=== PATIENT | male | born 1945 | race Caucasian/White ===

== ENCOUNTER 2016-12-31 11:52 | Emergency (ER) | payer OTHER, MEDICARE ==
[~2016-12-31] VITALS: Ht 180.3 cm; Wt 129.3 kg
[2016-12-31 12:38] LABS: ABSOLUTE BASOPHIL COUNT 0.1 /CUMM (0.0-0.2); ABSOLUTE EOSINOPHIL COUNT 0.3 /CUMM (0.0-0.7); ABSOLUTE GRANULOCYTE CT 11.1 /CUMM (1.4-6.5); ABSOLUTE LYMPH COUNT 1.9 /CUMM (1.2-3.4); BASOPHIL % 0.4 % (0.0-2.0); EOSINOPHIL % 1.8 % (0-5); GRANULOCYTE % 77.5 % (42.2-75.2); HEMATOCRIT 30.6 % (42-52); MEAN CORPUSCULAR HGB 29.8 PG (27.0-31.0); MEAN CORPUSCULAR HGB CONC 33.5 G/DL (33.0-37.0); MEAN CORPUSCULAR VOLUME 88.8 FL (80.0-94.0); MEAN PLATELET VOLUME 7.3 FL (7.4-10.4); PLATELET COUNT 238 /CUMM (130-400); RBC DISTRIBUTION WIDTH 15.4 % (11.5-14.5); RED BLOOD CELL CT 3.45 /CUMM (4.70-6.10); WHITE BLOOD CELL COUNT 14.3 /CUMM (4.8-10.8)
--- NOTE | 2016-12-31 13:51 | ED GI/GU/ABDOMINAL COMPLAINT ---
History of Present Illness General Chief Complaint: Abdominal Pain/Flank Pain Stated Complaint: R SIDED FLANK PAIN,PT STATES HAS HX OF HEMATURIA Source: patient, family (son) Exam Limitations: no limitations Allergies Coded Allergies: NO KNOWN ALLERGIES (05/25/11) Reconcile Medications Atenolol 25 MG TABLET 1 TAB PO DAILY HEART (Reported) Docusate Sodium (Colace) 100 MG CAPSULE 1 CAP PO BID CONSTIPATION (Reported) Ferrous Sulfate 325 MG (65 MG IRON) TABLET 1 TAB PO TID SUPPLEMENT (Reported) Glipizide 10 MG TABLET 1 TAB PO BID DM (Reported) Naproxen (Naprosyn) 500 MG TABLET 1 TAB PO BID PRN pain Ondansetron HCl 4 MG TABLET 1 TAB PO DAILY NEEDED PRN GI (Reported) Oxycodone HCl (Oxycodone HCl ER) 20 MG TAB.ER.12H 1-2 TAB PO BID PAIN ( Reported) Oxycodone HCl/Acetaminophen (Percocet 5-325 MG Tablet) 5 MG-325 MG TABLET 1 TAB PO 4 TIMES/DAY PRN PAIN (Reported) Polyethylene Glycol 3350 (Miralax) 17 GRAM POWD.PACK 1 PAC PO BID CONSTIPATION (Reported) dissolve in water Triage Note: 71 Y/O MALE C/O R FLANK PAIN RADIATING INTO RLQ X 2 DAYS; REPORTS 8 MONTH HISTORY OF HEMATURIA AND SUBSEQUENT ANEMIA. REPORTS CURRENT HEMATURIA (SINCE YESTERDAY, WITH BLOD CLOTS NOTED). REPORTS INTERMITTENT NAUSEA Triage Nurses Notes Reviewed? yes HPI: This patient is a 71-year-old male who presented to the emergency department today for evaluation of blood in the urine and right side pain. The patient reported that he has had approximately 8 weeks of intermittent hematuria for which he has been worked up for multiple times. The patient reported some slight burning with urination. He reported that 2 days ago he noticed pain in his right side which sometimes goes into his right groin. The patient denied any vomiting. He reports some intermittent nausea. The patient reported the pain gets up to an 8 out of 10, is throbbing, and has been constant since onset. The patient denied any fevers, chills, chest pain, difficulty breathing, urinary urgency or frequency, numbness or tingling in his extremities, headaches , visual changes, or any other associated symptoms. (MARIAN HARPER,ALEX) Vital Signs & Intake/Output Vital Signs & Intake/Output ED Intake and Output 01/01 0000 12/31 1200 Intake Total 1000 Output Total Balance 1000 Intake, IV 1000 Patient 285 lb Weight Past History Travel History Traveled to [place] past 21 day No Medical History Any Pertinent Medical History? 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 No (ALEX FONSECA PA-C) Review of Systems Review of Systems Constitutional: Reports: no symptoms. EENTM: Reports: no symptoms. Respiratory: Reports: no symptoms. Cardiovascular: Reports: no symptoms. GI: Reports: see HPI. Genitourinary: Reports: see HPI. Musculoskeletal: Reports: no symptoms. Skin: Reports: no symptoms. Neurological/Psychological: Reports: no symptoms. All Other Systems: Reviewed and Negative (ALEX FONSECA PA-C) Physical Exam Physical Exam Gastrointestinal: normal bowel sounds, soft, non-tender, no organomegaly, obese. Nondistended. No rebound or guarding, no peritoneal signs Comments: Well-developed well-nourished person in no acute distress HEENT: Normal EENT exam, head normocephalic, moist mucous membranes Pupils equally round and reactive to light. Neck: Supple, no lymphadenopathy Back: normal gait. no cva tenderness Cardiovascular: Regular rate and rhythm with no murmurs rubs or gallops. No carotid bruits Respiratory: No respiratory distress. Speaking in full sentences. Breath sounds clear to auscultation bilaterally with no wheezes, rales, or rhonchi Extremity: Normal and equal pulses Neuro: Alert oriented x3, cranial nerves II through XII grossly intact. Skin: No appreciable rash on exposed skin, skin is warm and dry. Psych: Mood and affect is normal Core Measures ACS in differential dx? Yes Severe Sepsis Present: No Septic Shock Present: No (ALEX FONSECA PA-C) Progress Differential Diagnosis: AAA, AMI, appendicitis, biliary colic, bowel obstruction , colon cancer, cholecystitis, diverticulitis, gastritis, hepatitis, ischemic bowel, inflamm bowel dis, pancreatitis, PUD/GERD, perforated viscous, pyelonephritis, STD, testicular torsion, ureterolithiasis, urinary retention, urethritis, UTI/pyelo Plan of Care: Orders Procedure Date/time Status CULTURE,URINE 12/31 1351 Active URINALYSIS 12/31 1200 Complete COMPREHENSIVE METABOLIC PANEL 12/31 1200 Complete CBC WITHOUT DIFFERENTIAL 12/31 1200 Complete Laboratory Tests 12/31/16 1607: Urinalysis HEAVY H, Urine Color YEL, Urine Clarity CLDY H, Urine pH 5.5, Ur Specific [place] >= 1.030, Urine Protein 100 H, Urine Ketones NEG, Urine Nitrite NEG, Urine Bilirubin NEG@ICTO, Urine Urobilinogen 0.2, Ur Leukocyte Esterase NEG, Ur Microscopic SEDIMENT EXAMINED, Urine RBC >75 H, Urine WBC 10- 15 H, Ur Epithelial Cells FEW, Urine Hemoglobin LARGE H, Urine Glucose 250 H 12/31/16 1230: Anion Gap 13, Estimated GFR 40 L, BUN/Creatinine Ratio 10.6, Glucose 251 H, Calcium 8.9, Total Bilirubin 0.4, AST 18, ALT 31, Alkaline Phosphatase 56, Total Protein 6.7, Albumin 3.8, Globulin 2.9, Albumin/Globulin Ratio 1.3, CBC w Diff NO MAN DIFF REQ, RBC 3.45 L, MCV 88.8, MCH 29.8, RDW 15.4 H, MPV 7.3 L, Gran % 77.5 H, Lymphocytes % 13.5 L, Monocytes % 6.8, Eosinophils % 1.8, Basophils % 0.4, Absolute Granulocytes 11.1 H, Absolute Lymphocytes 1.9, Absolute Monocytes 1.0 H, Absolute Eosinophils 0.3, Absolute Basophils 0.1, PUBS MCHC 33.5 Microbiology 12/31 1607 URINE ROUT: Urine Culture - RECD Diagnostic Imaging: Viewed by Me: CT Scan. Discussed w/RAD: CT Scan. Radiology Impression: PATIENT: MAMI SHETH PRESENT AGE: 71 PATIENT ACCOUNT NO: [id number] : 46 LOCATION: [facility] ORDERING PHYSICIAN: ALEX FONSECA PA-C SERVICE DATE: 12/31/16 EXAM TYPE: CAT - CT ABD & PELVIS W/O IV CONTRAS EXAMINATION: CT ABDOMEN AND PELVIS WITHOUT CONTRAST CLINICAL INFORMATION: Right lower quadrant pain. Right groin pain. Hematuria. COMPARISON: None. TECHNIQUE: Multidetector volumetric imaging was performed from the superior aspect of the liver through the pubic symphysis. Sagittal and coronal reformatted images were obtained on the technologist's workstation. No oral or intravenous contrast. DLP: 1384.65 mGy-cm. FINDINGS: LUNG BASES: Marked emphysematous changes at the lung bases. No infiltrate or pleural effusion. LIVER, GALLBLADDER, AND BILIARY TREE: Mild low attenuation of liver parenchyma due to fatty change. No focal liver lesion. No intrahepatic bile duct dilatation. Right lobe of liver measures 17.4 cm superior inferior. There are multiple calcified gallstones within the gallbladder. No gallbladder wall thickening or edema around the gallbladder. No bile duct dilatation. The extrahepatic CBD measures 7 mm. PANCREAS: Unremarkable. SPLEEN: Unremarkable. ADRENAL GLANDS: Unremarkable. KIDNEYS AND URETERS: There is mild hydronephrosis of the right kidney with dilatation of the renal pelvis, right renal calyces and proximal right ureter but the right ureter tapers to normal caliber distally in the pelvis without stone in the kidney or the ureter. Left kidney and collecting system is normal with no stone or hydronephrosis. 4.4 cm pedunculated cyst off the lower pole of the right kidney. BLADDER: No bladder stone. GASTROINTESTINAL TRACT: No acute change of the bowel. Mild diverticulosis of left colon sigmoid without diverticulitis. No bowel obstruction. No bowel wall thickening or edema. Moderate volume of stool in colon. The appendix is normal. The small bowel loops are normal. ABDOMINAL WALL: Fat-containing umbilical hernia. Defect in the wall measures 1.5 cm transverse. The herniated fat pocket measures 3.5 x 3 x 3 cm in size. LYMPH NODES: Normal. VASCULAR: Atherosclerotic vascular wall calcifications of aorta and major branch vessels of aorta. No aneurysm. PELVIC VISCERA: Unremarkable. OSSEOUS STRUCTURES: Degenerative change of the spine with multilevel disc height narrowing and endplate spurs and facet joint arthrosis. IMPRESSION: 1. Mild hydronephrosis of right kidney. No renal or ureteral calculus. 2. Cholelithiasis. 3. Diverticulosis of colon but no acute change of the bowel. Normal appendix. DICTATED BY: GABRIELA SAMPSON MD DATE/TIME DICTATED:01/15 CORPORATE SPECIALIST:YUMIKO DATE/TIME TRANSCRIBED:12/31/161526 CONFIDENTIAL, DO NOT COPY WITHOUT APPROPRIATE AUTHORIZATION. <Electronically signed in Other Vendor System> SIGNED BY: GABRIELA SAMPSON MD 12/31/16 1539 Initial ED EKG: none Comments: 12/31/2016 4:19:46 PM: I discussed the results of the laboratory studies and imaging with the patient and with his son. We will obtain an ultrasound of the right kidney and gallbladder should rule out any cholecystitis or missed ureterolithiasis on CT scan. The patient reported that his pain has resolved with IV Toradol. Sitting up comfortably on the stretcher and in no acute distress. 12/31/2016 6:12:08 PM: Dr. Hanna is currently at the patient's bedside for face-to- face evaluation. (MRAIAN HARPER,ALEX) Departure Departure Disposition: HOME OR SELF CARE Condition: Stable Clinical Impression Primary Impression: Biliary colic Secondary Impressions: Hematuria Referrals: DERECK BIGGS APRN (PCP/Family) GABRIELLA LEGER,MARTHA N. Additional Instructions: Please call to make a follow-up appointment with the general surgeons information has been provided to you in this packet to discuss your gallstones. Please follow-up with your urologist. Be sure to stay hydrated and rest. Return to the emergency department for any worsening symptoms or concerns. Departure Forms: Customer Survey General Discharge Information Prescriptions: Current Visit Scripts Naproxen (Naprosyn) 1 TAB PO BID PRN pain #20 TAB (MARIAN HARPER,ALEX) PA/ROAD BUILDER Co-Sign Statement Statement: ED Attending supervision documentation- [x] I saw and evaluated the patient. I have also reviewed all the pertinent lab results and diagnostic results. I agree with the findings and the plan of care as documented in the PA's/ROAD BUILDER's documentation. [] I have reviewed the ED Record and agree with the PA's/ROAD BUILDER's documentation. [] Additions or exceptions (if any) to the PAs/ROAD BUILDER's note and plan are summarized below: [] (LAINEY LEGER,LESLEY Ron)
[2016-12-31] MEDS ORDERED: FERROUS SULFAT325 M3 PO (14:02)
[2016-12-31] MEDS ORDERED: OXYCODONE HCL E20 MG PO (14:02)
[2016-12-31] MEDS ORDERED: ATENOLOL25 M1 PO (14:03)
[2016-12-31] MEDS ORDERED: PERCOCET 5-3251 EACH PO (14:03)
[2016-12-31] MEDS ORDERED: COLACE100 M1 PO (14:03)
[2016-12-31] MEDS ORDERED: ONDANSETRON HCL4 MG PO (14:04)
[2016-12-31] MEDS ORDERED: GLIPIZIDE10 M2 PO (14:04)
[2016-12-31] MEDS ORDERED: MIRALAX17 G1 PO (14:05)
--- NOTE | 2016-12-31 15:39 | CT SCAN REPORT ---
EXAMINATION: CT ABDOMEN AND PELVIS WITHOUT CONTRAST CLINICAL INFORMATION: Right lower quadrant pain. Right groin pain. Hematuria. COMPARISON: None. TECHNIQUE: Multidetector volumetric imaging was performed from the superior aspect of the liver through the pubic symphysis. Sagittal and coronal reformatted images were obtained on the technologist's workstation. No oral or intravenous contrast. DLP: 1384.65 mGy-cm. FINDINGS: LUNG BASES: Marked emphysematous changes at the lung bases. No infiltrate or pleural effusion. LIVER, GALLBLADDER, AND BILIARY TREE: Mild low attenuation of liver parenchyma due to fatty change. No focal liver lesion. No intrahepatic bile duct dilatation. Right lobe of liver measures 17.4 cm superior inferior. There are multiple calcified gallstones within the gallbladder. No gallbladder wall thickening or edema around the gallbladder. No bile duct dilatation. The extrahepatic CBD measures 7 mm. PANCREAS: Unremarkable. SPLEEN: Unremarkable. ADRENAL GLANDS: Unremarkable. KIDNEYS AND URETERS: There is mild hydronephrosis of the right kidney with dilatation of the renal pelvis, right renal calyces and proximal right ureter but the right ureter tapers to normal caliber distally in the pelvis without stone in the kidney or the ureter. Left kidney and collecting system is normal with no stone or hydronephrosis. 4.4 cm pedunculated cyst off the lower pole of the right kidney. BLADDER: No bladder stone. GASTROINTESTINAL TRACT: No acute change of the bowel. Mild diverticulosis of left colon sigmoid without diverticulitis. No bowel obstruction. No bowel wall thickening or edema. Moderate volume of stool in colon. The appendix is normal. The small bowel loops are normal. ABDOMINAL WALL: Fat-containing umbilical hernia. Defect in the wall measures 1.5 cm transverse. The herniated fat pocket measures 3.5 x 3 x 3 cm in size. LYMPH NODES: Normal. VASCULAR: Atherosclerotic vascular wall calcifications of aorta and major branch vessels of aorta. No aneurysm. PELVIC VISCERA: Unremarkable. OSSEOUS STRUCTURES: Degenerative change of the spine with multilevel disc height narrowing and endplate spurs and facet joint arthrosis. IMPRESSION: 1. Mild hydronephrosis of right kidney. No renal or ureteral calculus. 2. Cholelithiasis. 3. Diverticulosis of colon but no acute change of the bowel. Normal appendix.
[2016-12-31 17:38] VITALS: BP 124/60
--- NOTE | 2016-12-31 17:54 | ULTRASOUND REPORT ---
EXAMINATION: US ABDOMEN COMPLETE CLINICAL INFORMATION: Right-sided pain. COMPARISON: CT scan abdomen and pelvis today TECHNIQUE: Real-time imaging of the abdominal viscera. Color Doppler exam utilized. FINDINGS: PANCREAS: Obscured by bowel gas ABDOMINAL AORTA: Obscured by bowel gas INFERIOR VENA CAVA: Obscured by bowel gas LIVER: Increased echogenicity of liver parenchyma due to fatty change. No focal liver lesion. No intrahepatic bile duct dilatation. GALLBLADDER: Multiple small gallstones within the gallbladder. There is no gallbladder wall thickening or pericholecystic fluid. Negative ultrasound Wild's sign COMMON BILE DUCT: Normal in caliber measuring 0.4 cm in diameter. RIGHT KIDNEY: Mild dilatation of renal pelvis and calyces, mild hydronephrosis. No focal renal lesion or calculus. Normal echogenicity of the cortex of the kidney. The kidney measures 12.1 cm in maximum dimension. LEFT KIDNEY: Normal. No hydronephrosis. No renal calculi or focal parenchymal lesions. The kidney measures 10.6 cm in maximum dimension. SPLEEN: Normal. The spleen measures 13 cm in maximum dimension. FREE FLUID: None. IMPRESSION: 1. Cholelithiasis. No acute change of gallbladder wall. No bile duct dilatation. 2. Mild hydronephrosis of right kidney.
[2016-12-31] MEDS ORDERED: NAPROSYN500 M1 PO (18:47)
== END 2016-12-31 18:45 ==
LOC: ERH 11:52
PROVIDERS: Emergency Medicine
DX: K80.50 Calculus of bile duct without cholangitis or cholecystitis without obstruction (principal)
CPT/HCPCS: 74176; 81001; 87086; 96374; J1885

== ENCOUNTER 2018-07-15 15:04 | Inpatient (IN) | payer OTHER, MEDICARE ==
[~2018-07-15] VITALS: Ht 180.3 cm; Wt 118.0 kg
[~2018-07-15 15:04] MED LIST: ATENOLOL25 M1 PO; COLACE100 M1 PO; FERROUS SULFAT325 M3 PO; GLIPIZIDE10 M2 PO; MIRALAX17 G1 PO; NAPROSYN500 M1 PO; ONDANSETRON HCL4 MG PO; OXYCODONE HCL E20 MG PO; PERCOCET 5-3251 EACH PO
[2018-07-15 16:07] LABS: ABSOLUTE BASOPHIL COUNT 0 /CUMM (0.0-0.2); ABSOLUTE EOSINOPHIL COUNT 0.2 /CUMM (0.0-0.7); ABSOLUTE GRANULOCYTE CT 6.1 /CUMM (1.4-6.5); ABSOLUTE LYMPH COUNT 1.3 /CUMM (1.2-3.4); ABSOLUTE MONOCYTE COUNT 0.6 /CUMM (0.10-0.60); BASOPHIL % 0.1 % (0.0-2.0); EOSINOPHIL % 2.2 % (0-5); GRANULOCYTE % 74.5 % (42.2-75.2); HEMATOCRIT 26.2 % (42-52); MEAN CORPUSCULAR HGB 30.6 PG (27.0-31.0); MEAN CORPUSCULAR HGB CONC 31.7 G/DL (33.0-37.0); MEAN CORPUSCULAR VOLUME 96.8 FL (80.0-94.0); MEAN PLATELET VOLUME 7.8 FL (7.4-10.4); PLATELET COUNT 234 /CUMM (130-400); RBC DISTRIBUTION WIDTH 15.8 % (11.5-14.5); RED BLOOD CELL CT 2.71 /CUMM (4.70-6.10); WHITE BLOOD CELL COUNT 8.2 /CUMM (4.8-10.8)
--- NOTE | 2018-07-15 19:46 | ED GENERAL ADULT ---
See Addendum History of Present Illness General Chief Complaint: Male Genitourinary Problems Stated Complaint: "HAVENT URINATED X2DAYS.LOT OF PAIN AND BLOOD" Source: patient Exam Limitations: no limitations Allergies Coded Allergies: NO KNOWN ALLERGIES (05/25/11) Reconcile Medications Atenolol 25 MG TABLET 1 TAB PO DAILY BP (Reported) Atorvastatin Calcium (Unknown Strength) TABLET (Unknown Dose) PO AD CHOLESTEROL (Reported) Ferrous Sulfate 325 MG (65 MG IRON) TABLET 1 TAB PO BID SUPPLEMENT (Reported) Glipizide 10 MG TABLET 1 TAB PO BID DM (Reported) Lisinopril/Hydrochlorothiazide (Lisinopril-Hctz 20-12.5 MG Tab) (Unknown Strength) TABLET (Unknown Dose) PO DAILY BP (Reported) Metformin HCl (Metformin HCl ER) 500 MG TAB.ER.24H 2 TAB PO QAM DM (Reported) Oxycodone HCl (Oxycontin) 40 MG TAB.ER.12H 1 TAB PO BID PAIN (Reported) Oxycodone HCl/Acetaminophen (Percocet 5-325 MG Tablet) 5 MG-325 MG TABLET 2 TAB PO BID PAIN (Reported) Triage Note: 73 YO MALE TO TRIAGE FOR EVAL OF NOT BEING ABLE TO URINATE FULLY X2 DAYS. REPORTS +BLOOD CLOTS IN URINE X1 WEEK. STATES HX OF HEMTURIA IN THE PAST. REPORTS SINCE YESTERDAY HE IS JUST "DRIBBLING" OUT URINE AND ITS "ALL BLOOD" C/O PAIN TO LOWER ABD 08/08. Triage Nurses Notes Reviewed? yes Onset: Gradual Duration: day(s): Timing: constant HPI: 73-year-old male with a history of hypertension and diabetes presenting with hematuria 1 week and urinary retention with lower abdominal discomfort 24 hours. Denies fevers, nausea, vomiting, back pain, perineal pain, penile discharge. States that he has had intermittent episodes of hematuria and urinary retention in the past with no clear etiology. Denies history of enlarged prostate. (Andrew PEPE,Sofie) Vital Signs & Intake/Output Vital Signs & Intake/Output Vital Signs Date Time Temp Pulse Resp B/P B/P Pulse O2 O2 Flow FiO2 Mean Ox Delivery Rate 07/154 97.6 71 16 111/56 96 Room Air 07/15 2030 Room Air 07/15 1515 96.8 81 18 119/68 98 Room Air (Cyndi LEGER,Lars Marcum) Past History Travel History Traveled to [place] past 21 day No Medical History Any Pertinent Medical History? 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 No (Sofie Pedroza) Review of Systems Review of Systems Constitutional: Reports: no symptoms. EENTM: Reports: no symptoms. Respiratory: Reports: no symptoms. Cardiovascular: Reports: no symptoms. GI: Reports: see HPI. Genitourinary: Reports: no symptoms. Musculoskeletal: Reports: no symptoms. Skin: Reports: no symptoms. Neurological/Psychological: Reports: no symptoms. Hematologic/Endocrine: Reports: no symptoms. Immunologic/Allergic: Reports: no symptoms. All Other Systems: Reviewed and Negative (Sofie Pedroza) Physical Exam Physical Exam General Appearance: well developed/nourished, no apparent distress, alert, awake Comments: Gen.: Well-nourished, well-developed, no acute distress. Head: Normocephalic, atraumatic. Eyes: Normal inspection bilaterally Ears: Normal inspection bilaterally Nose: Normal inspection Neck: Normal inspection Lungs: clear to auscultation bilaterally, normnal breath sounds Heart: regular rate and rhythm Abdomen: soft and non-tender Back: No CVA tenderness Extremities: Normal inspection Neurologic: alert and oriented x3, steady gait Skin: warm and dry Psychiatric: Normal mood and affect, no apparent delusions or hallucinations, behavior appropriate Core Measures ACS in differential dx? No CVA/TIA Diagnosis: No Sepsis Present: No Sepsis Focused Exam Completed? No (Sofie Pedroza) Progress Differential Diagnoses I considered the following diagnoses in my evaluation of the patient: [UTI versus pyelonephritis versus prostatitis versus urethritis versus sepsis versus malignancy versus renal stone] Initial ED EKG: rhythm (sinus), ST depression (anterior and lateral leads) (Sofie Pedroza) Differential Diagnoses I considered the following diagnoses in my evaluation of the patient: Plan of Care: Orders Procedure Date/time Status Consistent Carbohydrate 3 07/16 B Active ECHOCARDIOGRAM 07/16 0600 Active CBC WITHOUT DIFFERENTIAL 07/16 0500 Active Consistent Carbohydrate 3 07/15 D Complete Hemoccult 07/15 2311 Active FOLIC ACID 07/15 2311 Active SERUM IRON 07/15 2311 Active VITAMIN B12 07/[address] ABD & PELVIS W/O IV CONTRAS 07/15 2234 Active TROPONIN LEVEL 07/15 2200 Complete BLOOD PRODUCT PICKUP 07/15 2132 Active Pathway - chart 07/15 2131 Active House Staff 07/15 2131 Active Patient Data 07/15 2131 Active EKG 07/15 2131 Active Code Status 07/15 2131 Active Patient Data 07/15 2121 Active Admit to inpatient 07/15 2052 Active Add-on Test (ER Only) 07/15 2035 Active LEUKOCYTE POOR (PACKED CELLS) 07/15 2033 Active TYPE & SCREEN (NOT X-MATCH) 07/15 2032 Active PARTIAL THROMBOPLASTIN TIME 07/15 194 Complete PROTHROMBIN TIME 07/15 1944 Complete Add-on Test (ER Only) 07/15 194 Active EKG 07/15 1940 Active TROPONIN LEVEL 07/15 1551 Complete Solo, Insertion/Removal/Asses 07/15 1514 Active CULTURE,URINE 07/15 1514 Active URINALYSIS 07/15 1514 Complete CBC WITHOUT DIFFERENTIAL 07/15 1514 Complete BASIC METABOLIC PANEL 07/15 1514 Complete VTE Mechanical Prophylaxis 07/15 UNK Active Vital Signs 07/15 UNK Active Intake & Output 07/15 UNK Active FingerStick- Glucose 07/15 UNK Active Activity/Ambulation 07/15 UNK Active Current Medications Sig/Dolores Start time Last Medication Dose Stop Time Status Admin Insulin Aspart 0 TIDAC 07/16 0800 AC (NovoLOG) Oxycodone HCl 40 MG BID 07/15 2254 UNVr (OxyCONTIN) Oxycodone/ 2 TAB BID 07/15 225 UNVr Acetaminophen (Percocet) Acetaminophen 650 MG Q6PRN PRN 07/15 2130 AC (Tylenol) Acetaminophen 1,000 MG Q6P PRN 07/15 2130 AC (Ofirmev) Laboratory Tests 07/15/189: Troponin I 0.01 07/15/183: PT 12.7 H, INR 1.16, APTT 50 H 07/15/18 1551: Anion Gap 10, Estimated GFR 46 L, BUN/Creatinine Ratio 17.3, Glucose 206 H, Calcium 9.1, Troponin I 0.02, CBC w Diff NO MAN DIFF REQ, RBC 2.71 L, MCV 96.8 H, MCH 30.6, MCHC 31.7 L, RDW 15.8 H, MPV 7.8, Gran % 74.5, Lymphocytes % 16.2 L, Monocytes % 7.0, Eosinophils % 2.2, Basophils % 0.1, Absolute Granulocytes 6.1, Absolute Lymphocytes 1.3, Absolute Monocytes 0.6, Absolute Eosinophils 0.2, Absolute Basophils 0, Urine Color BLDY H, Urine Clarity TURBD H, Urine pH 6.0, Ur Specific [place] >= 1.030, Urine Protein >=300 H, Urine Ketones NEG, Urine Nitrite POS H, Urine Bilirubin NEG, Urine Urobilinogen 0.2, Ur Leukocyte Esterase NEG, Ur Microscopic SEDIMENT EXAMINED, Urine RBC PACKD H, Urine WBC 25 -50 H, Urine Bacteria MANY H, Urine Hemoglobin LARGE H, Urine Glucose NEG Microbiology 07/15 1551 URINE ROUT: Urine Culture - RECD UA is suspicious for infection, urine culture sent, covered with ceftriaxone Labs show an acute drop in the patient's H&H compared to his prior labs. Patient states that he has a history of anemia of unknown etiology. Has been hospitalized at the [facility] multiple times requiring transfusion. Denies any current sources of bleeding. On rectal exam patient had brown guaiac positive stool. EKG was obtained and showed acute changes, had ST depressions in his anterior and lateral leads. Troponin was 0.02. Discussed with Dr. Estevez and will give IV fluids and a unit of packed RBCs. Patient consented for blood transfusion. Will admit to the ICU. (Andrew PEPE,Sofie) Comments: 07/15/2018 8:11:59 PM andree is resting comfortably on the stretcher and denies chest pain or unusual shortness of breath (patient suffers from emphysema) or heart palpitations. He likewise denies arm or jaw pain. His EKG shows ST segment changes laterally that I suspect reflect a chronic change. I have asked Sofie to incorporate the chest pain evaluation into this patient's ED workup. 07/15/2018 8:50:44 PM I have discussed this patient's case with Dr. Rios including the EKG changes, H&H and chemistries. Patient will be admitted to the intensive care unit at the recommendation of Dr. Estevez for a blood transfusion and further evaluation of his EKG changes. (Cyndi LEGER,Lars Marcum) Departure Departure Disposition: STILL A PATIENT Condition: Stable Clinical Impression Primary Impression: UTI (urinary tract infection) Secondary Impressions: Acute electrocardiogram changes, Anemia, Gastrointestinal hemorrhage Referrals: Rochelle Vivas APRN (PCP/Family) Departure Forms: Customer Survey General Discharge Information Admission Note Documentation of Exam: Documentation of any treatments & extenuating circumstances including Concerns Regarding Discharge (functional status, medication knowledge or non-compliance, living conditions, etc.) that warrant an admission rather than observation: [ Hemodynamic monitoring, telemetry monitoring, cardiology consult, serial EKGs and troponins, IV fluids, blood transfusions, GI consult, IV antibiotics, I&O monitoring, follow-up urine culture, urology consult] (Sofie Pedroza) PA/WRAP TURNER Co-Sign Statement Statement: ED Attending supervision documentation- [x] I saw and evaluated the patient. I have also reviewed all the pertinent lab results and diagnostic results. I agree with the findings and the plan of care as documented in the PA's/WRAP TURNER's documentation. [] I have reviewed the ED Record and agree with the PA's/WRAP TURNER's documentation. [] Additions or exceptions (if any) to the PAs/WRAP TURNER's note and plan are summarized below: [] (Cyndi LEGER,Lars Marcum) Critical Care Note Critical Care Note Critical Care Time: non-applicable (Sofie Pedroza)
[2018-07-15 20:38] LABS: PT 12.7 SEC (9.4-12.5); PTT 50 SEC (25-37)
[2018-07-15] MEDS ORDERED: METFORMIN HCL500 M4 PO (21:14)
[2018-07-15] MEDS ORDERED: ATORVASTATIN CA10 M1 PO (21:16)
[2018-07-15] MEDS ORDERED: LISINOPRIL-HCT1 EACH PO (21:16)
[2018-07-15] MEDS ORDERED: OXYCONTIN40 M1 PO (21:19)
[2018-07-15] MEDS ORDERED: PERCOCET 5-3251 EACH PO (21:19)
[2018-07-15] MEDS ORDERED: FERROUS SULFAT325 M3 PO (21:20)
--- NOTE | 2018-07-15 21:26 | History & Physical ---
Jc LEGER,Carlee 07/15/182124: General Information and HPI MD Statement: I have seen and personally examined MAMI SHETH and documented this H&P. The patient is a 73 year old M who presented with a patient stated chief complaint of [hematuria and inability to void for 1 day]. Source of Information: patient, old records Exam Limitations: no limitations History of Present Illness: 73 years old male with past medical history of hypertension, diabetes, emphysema , hematuria for over 3 years presents to the ED with chief complaint of difficulty to avoid which started 1 week ago and was getting progressively worse until yesterday when he was not able to void at all . Patient also reports having hematuria for 3 years. For which he follow-up with urology group in the [facility] (the patient does not have specific urologist) of note as per the patient he had colonoscopy and extensive imaging done including biopsy to diagnose the cause of hematuria however all investigations were negative as per the patient. The patient was admitted 1 year ago to the [facility] for similar complaints of hematuria and severe anemia for which he received multiple blood transfusion and was started on iron supplement. patient has history of hematuria in the past. Last time he was seen in the ED was in December 2016 for right-sided flank pain and hematuria as well however he was given IV Toradol which improved his pain and the patient was discharged home. Patient also reports soreness in the lower abdomen due to constant straining trying to avoid. He denies any flank pain or abdominal colics. He also denies any fever or chills. Patient denies any herbal supplement, NSAID or aspirin use. No recent changes to his medications. Patient denies any chest pain, shortness of breath, dizziness, nausea, vomiting, diarrhea or melena. He also denies any recent travel or sick contacts. Reports being compliant with his home. He lives home and walks independently. As per ED staff patient was guaiac positive however he denies any blood in the stool at home ED course: Vital signs on admission: Blood pressure 111/56, pulse 71, temperature 97.6, respiratory 16, pulse ox 96 on room air Labs on admission: CBC showed normal WBC 8.2, no H&H 8.3/26.2, his baseline was 10.3 back in 2017, platelet 234, BEP significant for mild hyponatremia sodium 133, and anion gap metabolic acidosis with bicarb of 16, potassium 4.7, chloride 108, BUN 26, creatinine 1.5, his baseline was 1.7 on 2017, INR 1.16, UA was positive with large hemoglobin, packed RBCs, WBC 2550 EKG: ST segment changes on the lateral leads CT ABD AND PELVIS: There is no acute abnormality of the abdomen or the pelvis. Cholelithiasis. Diverticulosis of colon. No acute abnormality of the bowel. Marked emphysematous changes of lung bases. He received 1 L normal saline bolus, 1 dose of IV ceftriaxone 1 g, 1 unit of PRBCs Allergies/Medications Allergies: Coded Allergies: NO KNOWN ALLERGIES (05/25/11) Home Med list Atenolol 25 MG TABLET 1 TAB PO DAILY BP (Reported) Atorvastatin Calcium (Unknown Strength) TABLET (Unknown Dose) PO AD CHOLESTEROL (Reported) Ferrous Sulfate 325 MG (65 MG IRON) TABLET 1 TAB PO BID SUPPLEMENT (Reported) Glipizide 10 MG TABLET 1 TAB PO BID DM (Reported) Lisinopril/Hydrochlorothiazide (Lisinopril-Hctz 20-12.5 MG Tab) (Unknown Strength) TABLET (Unknown Dose) PO DAILY BP (Reported) Metformin HCl (Metformin HCl ER) 500 MG TAB.ER.24H 2 TAB PO QAM DM (Reported) Oxycodone HCl (Oxycontin) 40 MG TAB.ER.12H 1 TAB PO BID PAIN (Reported) Oxycodone HCl/Acetaminophen (Percocet 5-325 MG Tablet) 5 MG-325 MG TABLET 2 TAB PO BID PAIN (Reported) Past History Travel History Traveled to [place] past 21 day No Medical History Neurological: NONE EENT: NONE Cardiovascular: hypertension Respiratory: NONE Gastrointestinal: NONE Hepatic: NONE Renal: hematuria Musculoskeletal: NONE Psychiatric: NONE Endocrine: diabetes Blood Disorders: anemia Cancer(s): NONE 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 Cardiovascular: Reports: edema. Denies: chest pain, orthopena, palpitations, peripheral edema, syncope. Respiratory: Reports: short of breath. Denies: cough, hemoptysis, orthopnea, sputum production, stridor. GI: Denies: abdominal pain, bloating, constipation, diarrhea, melena, nausea, bloody stool, vomiting. Genitourinary: Reports: hematuria, hesitation. Musculoskeletal: Denies: no symptoms. Skin: Denies: no symptoms. Exam & Diagnostic Data Last 24 Hrs of Vital Signs/I&O Vital Signs Date Time Temp Pulse Resp B/P B/P Pulse O2 O2 Flow FiO2 Mean Ox Delivery Rate 07/15 2034 97.6 71 16 111/56 96 Room Air 07/15 2030 Room Air 07/15 1515 96.8 81 18 119/68 98 Room Air Intake & Output 07/15 1600 07/15 0800 07/15 0000 Intake Total Output Total Balance Patient 290 lb Weight Weight Reported by Patient Measurement Method Physical Exam General Appearance Alert, Oriented X3, Cooperative, No Acute Distress HEENT Atraumatic, PERRLA, EOMI, Mucous Membr. moist/pink Neck Supple, No JVD Cardiovascular Normal S1, Normal S2, No Murmurs Lungs Clear to Auscultation Abdomen Normal Bowel Sounds, Soft, No Tenderness Neurological Normal Speech, Strength at 5/5 X4 Ext, Normal Tone, Sensation Intact, Cranial Nerves 3-12 NL Extremities 2 + pittiing edema , brownish chronic discoloration of both LE, pulse is intact in both dorsalis pedis Vascular Normal Pulses, Pulses Symmetrical Assessment/Plan Assessment: 73 years old male with past medical history of hypertension, diabetes, emphysema , hematuria for over 3 years presents to the ED with chief complaint of difficulty to avoid which started 1 week ago and was getting progressively worse until yesterday when he was not able to void at all . Patient also reports having hematuria for 3 years. For which he follow-up with urology group in the [facility] (the patient does not have specific urologist) of note as per the patient he had colonoscopy and extensive imaging done including biopsy to diagnose the cause of hematuria however all investigations were negative as per the patient. At this point the differential diagnosis includes malignancy, stones, infection, 1EKG changes secondary to acute blood loss anemia due to hematuria Patient denies any chest pain EKG showed ST segment depression in the V2V6 Troponin was normal Admit to ICU Close monitoring of vital signs Serial tropes and EKG to rule out ACS Echocardiogram Dr. Estevez was informed by the ED physician and he recommended to admit the patient to the ICU and give blood transfusion and monitoring of his tropes and EKG 2Hematuria: Differential diagnosis includes malignancy, infection, stone Patient has history of flank pain and hematuria for which he was seen in the ED back in 2017 before for the same condition in addition he was admitted to the [facility] for the same picture of hematuria and anemia and he had extensive workup done which did not reveal the cause of hematuria Patient is afebrile, WBC is within normal limits, UA showed large hemoglobin with packed RBCs, CT abdomen and pelvis without IV contrast If signs of bladder obstruction are noticed on the CT patient will need urgent bladder irrigation WBCs 2550 which might be due to hematuria Patient received 1 dose of IV ceftriaxone in the ED Will hold off antibiotics for now Follow-up on urine culture Urology consult appreciated 3Acute blood loss anemia Most likely due to the hematuria. However the patient was guaiac positive in the ED but he denies any blood in his stool Patient hemoglobin S 8.3, it was 10.3 back in 2017 He was transfused 1 unit of PRBCs in the ED Close monitoring of CBCs Guaiac all stool Anemia workup including iron, folic acid and vitamin B12 4History of diabetes mellitus on glipizide Hold home medication Insulin sliding scale Fingerstick glucose Consistent carbohydrate diet 5-History of hypertension: Blood pressure is 111/56, will hold off his medication for now given his active bleeding We will reassess in the morning and can restart his home meds if blood pressure allows 6-Mild hyponatremia: Sodium 133, Non-anion gap metabolic acidosis with bicarb 16 Patient denies any nausea, vomiting, diarrhea will check serum osmolarity, urine osmolarity, urine lites Monitor BEB 7-guaiac positive stools: Pt didn't have any colonoscopy in the past Patient was found to be guaiac positive by the ED personnel Guaiac all stool Close monitoring of H&H Patient is Full Code Consistent carbohydrate diet Alps for DVT prophylaxis due to hematuria As Ranked By This Provider Problem List: 1. Acute electrocardiogram changes 2. Anemia 3. Hematuria Core Measures/Misc (08/15) Acute Coronary Syndrome ACS Diagnosis: No Congestive Heart Failure Congestive Heart Failure Diagnosis No Cerebrovascular Accident CVA/TIA Diagnosis: No VTE (View Protocol) VTE Risk Factors Age>40 No Mechanical VTE Prophylaxis d/t N/A MechProphylax Ordered No VTE Pharm Prophylaxis d/t Bleeding (Active) Sepsis (View protocol) Sepsis Present: No If YES complete Sepsis Event Note If YES complete Sepsis Event Note Nelson LEGERMegan 07/16/18 0021: Core Measures/Misc (08/15) Sepsis (View protocol) If YES complete Sepsis Event Note If YES complete Sepsis Event Note Attending MD Review Statement Attending Statement Attending MD Statement: examined this patient, discuss w/resident/PA/SPECIAL EVENTS COORDINATOR Attending Assessment/Plan: This is a 73-year-old male with a past medical history significant for recurrent gross hematuria with had an extensive workup last year including cystoscopy, bladder biopsy without any positive findings. Patient states that over the past 1 week he has noticed increasing gross hematuria and weakness. He denied any flank tenderness or dysuria. He has also been having difficulty urinating over the past 1 week. He is followed at the [facility] by urology. Incidentally, he was also found to have new EKG changes upon arrival to the ER including ST segment depressions involving leads V2 to V6. Subsequently, Dr. Estevez was consulted who recommended ICU admission and transfusion for further monitoring. Problem list: Acute on chronic blood loss anemia secondary to gross hematuria of unclear etiology with new EKG findings including ST segment depression and V2 to V6 Differential diagnosis: Malignancy versus glomerulopathy vs BPH Plan: Transfuse PRBC Trend cardiac enzymes Urology consult in AM Cardiology following
--- NOTE | 2018-07-15 21:29 | RADIOLOGY REPORT ---
EXAMINATION: XR CHEST CLINICAL INFORMATION: EKG changes. COMPARISON: None TECHNIQUE: 2 views of the chest were obtained. FINDINGS: The cardiomediastinal contour is prominent. There are calcifications of aorta. There is no acute abnormality of the chest. No pulmonary vascular congestion. There is infiltrate or pleural effusion. Multilevel degenerative spondylosis of dorsal spine with bridging osteophytes of the vertebrae. There is old healed fractures of the right mid lateral ribs. IMPRESSION: No acute abnormality of the chest.
--- NOTE | 2018-07-15 23:23 | CT SCAN REPORT ---
EXAMINATION: CT ABDOMEN AND PELVIS WITHOUT CONTRAST CLINICAL INFORMATION: Chronic Hematuria. Anemia. Acute blood loss COMPARISON: CT scan abdomen pelvis 12/31/2016. TECHNIQUE: Multidetector volumetric imaging was performed from the superior aspect of the liver through the pubic symphysis. Sagittal and coronal reformatted images were obtained on the technologist's workstation. DLP: 1378.28 mGy-cm FINDINGS: LUNG BASES: There is marked emphysematous changes of lungs with large blebs and interstitial thickening. There is no infiltrate or pleural effusion. LIVER, GALLBLADDER, AND BILIARY TREE: The liver is normal in size, shape, and attenuation. No focal hepatic lesion or biliary ductal dilatation is present. There are multiple small calcified gallstones layering dependently in the gallbladder. No edema around the gallbladder. Extrahepatic CBD measures 6 mm.. There is no calcified gallstone within the bile ducts. PANCREAS: Unremarkable. SPLEEN: Unremarkable. ADRENAL GLANDS: Unremarkable. KIDNEYS AND URETERS: The kidneys are normal in size, shape, and attenuation. No hydronephrosis, hydroureter, or calculi seen. No perinephric stranding. There are renal cysts in the lower pole and upper pole of the right kidney. Largest at lower pole is pedunculated inferiorly. Measures 4.8 cm. BLADDER: Solo catheter within the bladder. There is a small collection of air in the bladder from the instrumentation. GASTROINTESTINAL TRACT: There is marked diverticulosis of the sigmoid and left colon. There is no acute change of the bowel. No bowel obstruction. No bowel wall thickening or edema. The appendix is normal. The small bowel loops are unremarkable. ABDOMINAL WALL: There is a fat-containing umbilical hernia. LYMPH NODES: Normal. VASCULAR: There is extensive vascular calcifications in the abdomen and the pelvis. There is no aneurysm of aorta. PELVIC VISCERA: Unremarkable. OSSEOUS STRUCTURES: Multilevel degenerative spondylosis of disc height narrowing and vacuum disc phenomenon with endplate spurring and facet joint arthrosis. IMPRESSION: There is no acute abnormality of the abdomen or the pelvis. Cholelithiasis. Diverticulosis of colon. No acute abnormality of the bowel. Marked emphysematous changes of lung bases.
[2018-07-15 23:30] VITALS: BP 132/58
[2018-07-16 04:32] LABS: ABSOLUTE BASOPHIL COUNT 0 /CUMM (0.0-0.2); ABSOLUTE EOSINOPHIL COUNT 0.2 /CUMM (0.0-0.7); ABSOLUTE LYMPH COUNT 1.3 /CUMM (1.2-3.4); ABSOLUTE MONOCYTE COUNT 0.7 /CUMM (0.10-0.60); BASOPHIL % 0.5 % (0.0-2.0); EOSINOPHIL % 2.6 % (0-5); GRANULOCYTE % 75.5 % (42.2-75.2); HEMATOCRIT 26.2 % (42-52); MEAN CORPUSCULAR HGB CONC 32.3 G/DL (33.0-37.0); MEAN CORPUSCULAR VOLUME 96.3 FL (80.0-94.0); MEAN PLATELET VOLUME 7.7 FL (7.4-10.4); PLATELET COUNT 212 /CUMM (130-400); RED BLOOD CELL CT 2.72 /CUMM (4.70-6.10); WHITE BLOOD CELL COUNT 9.3 /CUMM (4.8-10.8)
[2018-07-16 08:00] VITALS: BP 116/60
--- NOTE | 2018-07-16 08:15 | Cons- CRCU ---
MichaelCabrera 07/16/18 0815: General Information and HPI Consulting Request Date of Consult: 07/16/18 Requested By: Medical team Reason for Consult: Acute on chronic anemia due to blood loss secondary to hematuria of unknown etiology. EKG changes, ST segment depression in v2 to v6 Source of Information: patient, old records Exam Limitations: no limitations History of Present Illness: 73 YO M with PMH of HTN, DM, emphysema, hematuria for over 3 years, had an extensive workup last year including cystoscopy, bladder biopsy without any positive findings presented to the ED with chief complaint of difficulty to void , started 1 week ago and was getting progressively worsen until yesterday when he was not able to pass urine. Incidentally, he was also found to have new EKG changes upon arrival to the ER including ST segment depressions involving leads V2 to V6. Subsequently, Dr. Estevez was informed who recommended ICU admission and transfusion for further monitoring. Patient received 1 transfusion in ED. Patient is seen and examined this morning. He was complaining of lower abdominal pain intermittently 06/07. Patient denied chest pain, palpitation, nausea, vomiting, lightheadedness and dysuria. Patient also reported having low appetite. Allergies/Medications Allergies: Coded Allergies: NO KNOWN ALLERGIES (05/25/11) Home Med List: Atenolol 25 MG TABLET 1 TAB PO DAILY BP (Reported) Atorvastatin Calcium (Unknown Strength) TABLET (Unknown Dose) PO AD CHOLESTEROL (Reported) Ferrous Sulfate 325 MG (65 MG IRON) TABLET 1 TAB PO BID SUPPLEMENT (Reported) Glipizide 10 MG TABLET 1 TAB PO BID DM (Reported) Lisinopril/Hydrochlorothiazide (Lisinopril-Hctz 20-12.5 MG Tab) (Unknown Strength) TABLET (Unknown Dose) PO DAILY BP (Reported) Metformin HCl (Metformin HCl ER) 500 MG TAB.ER.24H 2 TAB PO QAM DM (Reported) Oxycodone HCl (Oxycontin) 40 MG TAB.ER.12H 1 TAB PO BID PAIN (Reported) Oxycodone HCl/Acetaminophen (Percocet 5-325 MG Tablet) 5 MG-325 MG TABLET 2 TAB PO BID PAIN (Reported) Review of Systems Review of Systems Constitutional: Denies: chills, fever. EENTM: Reports: no symptoms. Cardiovascular: Denies: chest pain, palpitations, syncope. Respiratory: Denies: cough, short of breath, sputum production, wheezing. GI: Reports: abdominal pain. Denies: constipation, diarrhea, nausea, vomiting. Genitourinary: Reports: hematuria. Denies: dysuria, urgency. Musculoskeletal: Reports: see HPI. Neurological/Psychological: Reports: no symptoms. Hematologic/Endocrine: Reports: see HPI. 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 Home Smoking Status: Former Smoker Exam & Diagnostic Data Last 24 Hrs of Vital Signs/I&O Vital Signs Date Time Temp Pulse Resp B/P B/P Pulse O2 O2 Flow FiO2 Mean Ox Delivery Rate 07/16 0800 95 Nasal 2.0L Cannula 07/16 0800 97.7 73 26 116/60 95 Nasal 2.0L Cannula 07/16 0400 96 Nasal 2.0L Cannula 07/16 0000 94 Room Air 07/15 2346 92 Room Air 07/15 2330 97.5 72 24 132/58 95 Room Air 07/15 2034 97.6 71 16 111/56 96 Room Air 07/15 2030 Room Air 07/15 1515 96.8 81 18 119/68 98 Room Air Intake & Output 07/16 1600 07/16 0800 07/16 0000 Intake Total 578 30 Output Total 425 1700 Balance 153 -1670 Intake, Blood 338 Product Intake, IV 0 Intake, Oral 240 Intake, Other 30 Number 0 0 Bowel Movements Output, Urine 425 1700 Patient 281 lb Weight Weight Bed scale Measurement Method Physical Exam General Appearance: well developed/nourished, no apparent distress, alert, awake Head: atraumatic Neck: normal inspection, supple Respiratory: normal breath sounds, chest non-tender Cardiovascular: regular rate/rhythm Gastrointestinal: soft, non-tender Extremities: B/L pedal edema grade 1 with chronic venous changes., b/l statis dematitis Neurologic/Psych: awake, alert, oriented x 3 Assessment/Plan CRCU Impression/Plan: 73 YO M with PMH of HTN, DM, emphysema, hematuria for over 3 years, had an extensive workup last year including cystoscopy, bladder biopsy without any positive findings presented to the ED with chief complaint of difficulty to void , started 1 week ago and was getting progressively worsen until yesterday when he was not able to pass urine. Incidentally, he was also found to have new EKG changes upon arrival to the ER including ST segment depressions involving leads V2 to V6. Subsequently, Dr. Estevez was informed who recommended ICU admission and transfusion for further monitoring. Patient received 1 transfusion in ED. patient received one dose of ceftriaxone in ED, considering WBC in urine and nitites. Patient is being followed in ICU for following problems: Acute on chronic anemia: -Due to blood loss secondary to hematuria. -Considering continuous gross hematuria he received 1 blood transfusion yesterday. -Patient's hemoglobin in December 2016 was 10.3 and he presented with hemoglobin of 8.3 yesterday. Considering patient's EKG changes, we'll need to keep his hemoglobin above 8.5 -He is getting another blood transfusion. we will check cbc after it. -We will monitor him for fluid overload. -Follow-up H&H for drop in hemoglobin. -Guaiac stools, patient reported that he had colonoscopies in the past and he is due for another one at [place]. Gross hematuria: -Patient had extensive workup but without finding any etiology. -Could have glomerulopathy that's causing his hematuria. -Continue Solo's catheter with continuous bladder irrigation to prevent obstruction from clots. -Get record from [place] for his hematuria workup. -Avoid any medications that can increase his hematuria like aspirin and heparin. -Follow up cytology and urine culture. -Follow up urology recommendations. EKG changes: -Patient had EKG changes, ST segment and T wave inversion in V2 to V6. -His troponin at remained negative. 0.01, 0.01 -Cardiology recommended cardiac cath after stabilization to rule out ischemia. -Follow-up Echocardiogram result. History of chronic kidney disease: -His last creatinine was in December 2016 that was 1.7 GFR was 40. -Stage III kidney disease -On presentation his creatinine was 1.5 and today it's 1.4 -Continue monitoring his BUN/creatinine level -Continue monitoring his input and output -Avoid nephrotoxins medications History of hypertension and hyperlipidemia: -Continue Lipitor -Holding his atenolol and lisinopril. If he remained hemodynamically stable we' ll restarted. History of diabetes: -Accu-Cheks, his fasting blood sugar level is 168 this morning. -Insulin NovoLog according to sliding scale -Hold metformin while patient in the hospital. Due to prophylaxis: Mechanical only CODE STATUS: Full code Problem List: 1. Anemia 2. Hematuria Consult Acknowledgment - Thank you for your consult request. John LEGER,[facility] 07/16/18 1017: Exam & Diagnostic Data Last 48 Hrs of Labs/Shaheed: Laboratory Tests 07/16/18 0400: Troponin I 0.01 07/16/18 0400: Anion Gap 9, Estimated GFR 50 L, Glucose 189 H, Calcium 8.6, Phosphorus 3.9, Magnesium 1.8, Total Bilirubin 0.3, AST 16 L, ALT 30, Albumin 2.9 L, CBC w Diff NO MAN DIFF REQ, RBC 2.72 L, MCV 96.3 H, MCH 31.0, MCHC 32.3 L, RDW 16.0 H, MPV 7.7, Gran % 75.5 H, Lymphocytes % 13.7 L, Monocytes % 7.7, Eosinophils % 2.6, Basophils % 0.5, Absolute Granulocytes 7.0 H, Absolute Lymphocytes 1.3, Absolute Monocytes 0.7 H, Absolute Eosinophils 0.2, Absolute Basophils 0 07/15/18 2311: Iron Cancelled, Vitamin B12 Cancelled, Folate Cancelled 07/15/18 2209: Iron 27 L, Troponin I 0.01, Vitamin B12 347, Folate 11.9 07/15/183: PT 12.7 H, INR 1.16, APTT 50 H 07/15/18 1551: Anion Gap 10, Estimated GFR 46 L, BUN/Creatinine Ratio 17.3, Glucose 206 H, Calcium 9.1, Troponin I 0.02, CBC w Diff NO MAN DIFF REQ, RBC 2.71 L, MCV 96.8 H, MCH 30.6, MCHC 31.7 L, RDW 15.8 H, MPV 7.8, Gran % 74.5, Lymphocytes % 16.2 L, Monocytes % 7.0, Eosinophils % 2.2, Basophils % 0.1, Absolute Granulocytes 6.1, Absolute Lymphocytes 1.3, Absolute Monocytes 0.6, Absolute Eosinophils 0.2, Absolute Basophils 0, Urine Color BLDY H, Urine Clarity TURBD H, Urine pH 6.0, Ur Specific [place] >= 1.030, Urine Protein >=300 H, Urine Ketones NEG, Urine Nitrite POS H, Urine Bilirubin NEG, Urine Urobilinogen 0.2, Ur Leukocyte Esterase NEG, Ur Microscopic SEDIMENT EXAMINED, Urine RBC PACKD H, Urine WBC 25 -50 H, Urine Bacteria MANY H, Urine Hemoglobin LARGE H, Urine Glucose NEG Assessment/Plan CRCU Other Findings/Comments: Seen and examined independently This is a gentleman who usually gets his care at [facility] with recurrent hematuria with prior workup apparently negative, COPD hypertension diabetes, came into the emergency room because he had significant hematuria. Subsequently was noted to have diffuse EKG changes in the lateral leads. Patient was not having any chest pain or palpitations. Now he continues to have abdominal discomfort and pain around the Solo area. His outpatient medications reviewed Exam as noted above continues to have hematuria with mild pain to prior pubic area IMPRESSION This is a 73-year-old gentleman with history of diabetes, hypertension, COPD, hematuria with negative workup in the past for two yearsat [facility] now here with Significant hematuria and blood loss anemia now requiring transfusion with ongoing hematuria with suprapubic pain Significant EKG changes, no significant pain patient has diabetes however. So far troponin is not significantly elevated Acute kidney injury with probable chronic renal failure Diabetes, hypertension hyperlipidemia Significant emphysema noted in the CAT scan not actively wheezing RECOMMENDATION Continue Solo patient needs continuous bladder irrigation call urology Transfuse if hemoglobin drops less than 8.5 check again this morning as patient is having EKG changes Watch for pulmonary edema Echocardiogram Rule out VT Keep magnesium around 1.8-2 Patient is not a candidate for anticoagulation due to gross hematuria Await cultures hold further antibiotics for now urine for cytology PRNnebulizer if he is wheezing Will follow closely pt needs icu tts 37 mins Consult Acknowledgment - Thank you for your consult request.
--- NOTE | 2018-07-16 10:07 | Event Note ---
Event Note Event Note: S: Patient has gross hematuria, needs three-way Mares's catheter to continue bladder irrigation. Called urology for consultation. B:73 YO M with PMH of HTN, DM, emphysema, hematuria for over 3 years, had an extensive workup last year including cystoscopy, bladder biopsy without any positive findings presented to the ED with chief complaint of difficulty to void , started 1 week ago and was getting progressively worsen until yesterday when he was not able to pass urine. A/P: Urology (Dr. Steward) called back. Dr. Steward said that patient already had mares's catheter and there is no difference between regular mares's and three way mares's cather. She told me to try three way first and if you have any trouble then call her again. For patient's hematuria is it's going on for a long time and patient had already extensive workup without finding any etiology at CT so do some imaging study and if we find anything then call her again.
--- NOTE | 2018-07-16 11:23 | Cons- Cardiology ---
General Information and HPI Consulting Request Date of Consult: 07/16/18 Requested By: Megan Damon MD History of Present Illness: Mr. Pedraza is a 73 years old male with history of hypertension, dyslipidemia and diabetes. He also carries a longstanding history of hematuria. The patient presented to the ER for evaluation of difficulty with his urination which progressed to the point that he could not urinate at all. He also felt that his hematuria was becoming worse. Otherwise this patient has not noted any chest pain, pressure, tightness, lightheadedness or palpitations. He does have shortness of breath without orthopnea which is a stable symptom. It should be noted that he does have a history of emphysema. In the ER the patient was noted to have anterolateral and inferior ST depressions with T wave inversions consistent with ischemia. It should be noted that the patient also feels discomfort in his lower abdomen. To review this patient's prior history, he reports having hematuria for 3 years. He follows-up with a urology group at the [facility] and extensive imaging was done including biopsy to diagnose the cause of hematuria however all investigations were negative as per the patient. He has had multiple blood transfusions for this issue. Allergies/Medications Allergies: Coded Allergies: NO KNOWN ALLERGIES (05/25/11) Home Med List: Atenolol 25 MG TABLET 1 TAB PO DAILY BP (Reported) Atorvastatin Calcium (Unknown Strength) TABLET (Unknown Dose) PO AD CHOLESTEROL (Reported) Ferrous Sulfate 325 MG (65 MG IRON) TABLET 1 TAB PO BID SUPPLEMENT (Reported) Glipizide 10 MG TABLET 1 TAB PO BID DM (Reported) Lisinopril/Hydrochlorothiazide (Lisinopril-Hctz 20-12.5 MG Tab) (Unknown Strength) TABLET (Unknown Dose) PO DAILY BP (Reported) Metformin HCl (Metformin HCl ER) 500 MG TAB.ER.24H 2 TAB PO QAM DM (Reported) Oxycodone HCl (Oxycontin) 40 MG TAB.ER.12H 1 TAB PO BID PAIN (Reported) Oxycodone HCl/Acetaminophen (Percocet 5-325 MG Tablet) 5 MG-325 MG TABLET 2 TAB PO BID PAIN (Reported) Review of Systems Review of Systems: Abdominal discomfort Past History Travel History Traveled to [place] past 21 day No Medical History Blood Transfusion Hx: Yes Neurological: NONE EENT: NONE Cardiovascular: hypertension, hyperlipidemia Respiratory: COPD Gastrointestinal: NONE Hepatic: NONE Renal: hematuria Musculoskeletal: NONE Psychiatric: NONE Endocrine: diabetes Blood Disorders: anemia Cancer(s): NONE 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 Home Smoking Status: Former Smoker Exam & Diagnostic Data Vital Signs and I&O Vital Signs Date Time Temp Pulse Resp B/P B/P Pulse O2 O2 Flow FiO2 Mean Ox Delivery Rate 07/16 0800 95 Nasal 2.0L Cannula 07/16 0800 97.7 73 26 116/60 95 Nasal 2.0L Cannula 07/16 0400 96 Nasal 2.0L Cannula 07/16 0000 94 Room Air 07/15 2346 92 Room Air 07/15 2330 97.5 72 24 132/58 95 Room Air 07/15 2034 97.6 71 16 111/56 96 Room Air 07/15 2030 Room Air 07/15 1515 96.8 81 18 119/68 98 Room Air Intake & Output 07/16 1600 07/16 0800 07/16 0000 07/15 1600 07/15 0800 07/15 0000 Intake Total 578 30 Output Total 425 1100 600 Balance 153 -1070 -600 Intake, Blood 338 Product Intake, IV 0 Intake, Oral 240 Intake, Other 30 Number 0 0 Bowel Movements Output, Urine 425 1100 600 Patient 281 lb 290 lb Weight Weight Bed scale Reported by Patient Measurement Method Physical Exam: General: WD/obese male in NAD; alert and oriented x 3 HEENT: NC/AT, PERRL, EOMI Neck: no obvious JVD, no carotid bruit Heart: RRR w/o murmur Lungs: clear bilaterally Abdomen: soft, obese, tender with radiation toward his groin, +ve bowel sounds Extremities: no edema Assessment/Plan Assessment/Plan * This patient has ischemic appearing ECG changes in the setting of anemia. In consideration of his multiple risk factors for CAD, I suspect he has significant coronary atherosclerosis. When more stable this issue can be evaluated by a cardiac catheterization. In consideration of the diffuse ECG changes nuclear imaging would be unreliable due to the possibility that the images could appear normal due to balanced ischemia. The ECG portion of a stress test would not be helpful since he already has ischemic changes at baseline. * Would not begin anticoagulation in this patient due to his active bleeding but he should continue on a statin. I would not begin beta blockers at this point in time since he carries a history of hypertension and is currently in the normal range probably related to volume loss. * Agree with transfusion. * Will review echo. Consult Acknowledgment - Thank you for your consult request.
[2018-07-16 16:00] VITALS: BP 130/70
[2018-07-16 16:34] LABS: ABSOLUTE BASOPHIL COUNT 0 /CUMM (0.0-0.2); ABSOLUTE EOSINOPHIL COUNT 0.2 /CUMM (0.0-0.7); ABSOLUTE GRANULOCYTE CT 6.8 /CUMM (1.4-6.5); ABSOLUTE MONOCYTE COUNT 0.6 /CUMM (0.10-0.60); BASOPHIL % 0.6 % (0.0-2.0); EOSINOPHIL % 1.9 % (0-5); GRANULOCYTE % 78.6 % (42.2-75.2); HEMATOCRIT 28.7 % (42-52); MEAN CORPUSCULAR HGB 30.7 PG (27.0-31.0); MEAN CORPUSCULAR HGB CONC 32.5 G/DL (33.0-37.0); MEAN CORPUSCULAR VOLUME 94.2 FL (80.0-94.0); MEAN PLATELET VOLUME 7.6 FL (7.4-10.4); PLATELET COUNT 210 /CUMM (130-400); RBC DISTRIBUTION WIDTH 17.3 % (11.5-14.5); RED BLOOD CELL CT 3.05 /CUMM (4.70-6.10); WHITE BLOOD CELL COUNT 8.6 /CUMM (4.8-10.8)
--- NOTE | 2018-07-16 17:09 | RADIOLOGY REPORT ---
EXAMINATION: XR PORTABLE CHEST CLINICAL INFORMATION: Requiring increased oxygen supplementation. 2 transfusions. COMPARISON: Chest x-ray 07/15/2018 TECHNIQUE: Portable frontal view of the chest was obtained. FINDINGS: Symmetric lung inflation. There are bibasilar airspace opacities that are improved in comparison to the prior study, possibly atelectasis. There is a similar pleural-based opacity within the right midlung that is nonspecific. There are a few adjacent chronic appearing rib fractures. Central vascular congestion without overt edema. Cardiac mediastinal silhouette is stable. Osseous structures are stable. IMPRESSION: Improving bibasilar opacities, likely atelectasis. There is a similar pleural-based opacity within the right midlung that is nonspecific. There are a few adjacent chronic appearing rib fractures. CT could be obtained for further assessment.
[2018-07-16 23:36] VITALS: BP 118/52
[2018-07-17 05:05] LABS: ABSOLUTE BASOPHIL COUNT 0 /CUMM (0.0-0.2); ABSOLUTE EOSINOPHIL COUNT 0.3 /CUMM (0.0-0.7); ABSOLUTE GRANULOCYTE CT 7.5 /CUMM (1.4-6.5); ABSOLUTE LYMPH COUNT 1.3 /CUMM (1.2-3.4); ABSOLUTE MONOCYTE COUNT 0.8 /CUMM (0.10-0.60); BASOPHIL % 0.5 % (0.0-2.0); EOSINOPHIL % 3.2 % (0-5); GRANULOCYTE % 75.2 % (42.2-75.2); HEMATOCRIT 29.8 % (42-52); MEAN CORPUSCULAR HGB 30.5 PG (27.0-31.0); MEAN CORPUSCULAR HGB CONC 32.2 G/DL (33.0-37.0); MEAN PLATELET VOLUME 7.5 FL (7.4-10.4); PLATELET COUNT 230 /CUMM (130-400); RBC DISTRIBUTION WIDTH 17.1 % (11.5-14.5); RED BLOOD CELL CT 3.14 /CUMM (4.70-6.10); WHITE BLOOD CELL COUNT 9.9 /CUMM (4.8-10.8)
[2018-07-17 08:00] VITALS: BP 110/60
--- NOTE | 2018-07-17 08:07 | PN- Resident CRCU ---
Subjective HPI/CRCU Issues: Acute on chronic blood loss anemai Gross hematuria EKG changes History of chronic kidney disease History of hypertension and hyperlipidemia History of diabetes 24 Hour Events: No overnight events, stable vital signs, hematuria is improving, H&H is stable. Creatinine is the same as yesterday 1.4 Objective Vital Signs & I&O Last 8 Hrs of Vitals and I&O: Vital Signs Date Time Temp Pulse Resp B/P B/P Pulse O2 O2 Flow FiO2 Mean Ox Delivery Rate 07/17 0800 92 Nasal 3.0L Cannula 07/17 0800 98.0 76 20 110/60 92 Nasal 3.0L Cannula 07/17 0400 92 Nasal 3.0L Cannula 07/17 0000 92 Nasal 3.0L Cannula 07/16 2336 97.2 73 14 118/52 93 Nasal 3.0L Cannula 07/16 2000 92 Nasal 3.0L Cannula 07/16 1600 93 Nasal 4.0L Cannula 07/16 1600 97.3 68 20 130/70 93 Nasal 4.0L Cannula 07/16 1200 94 Nasal 3.0L Cannula Intake & Output 07/17 1600 07/17 0800 07/17 0000 Intake Total 120 540 Output Total 1450 2425 Balance -1330 -1885 Intake, IV 0 0 Intake, Oral 120 540 Number 0 0 Bowel Movements Output, Urine 1450 2425 Exam General Appearance: alert, awake, comfortable Neck: supple Respiratory: normal breath sounds, chest non-tender Cardiovascular: regular rate/rhythm, edema Gastrointestinal: normal bowel sounds, soft Extremities: 2 + pitting edema Skin: intact, normal color, chronic venous skin changes in both LE Current Medications: Current Medications Sig/Dolores Start time Last Medication Dose Route Stop Time Status Admin Atorvastatin Calcium 20 MG 1700 07/16 1700 AC 07/16 PO 1625 Finasteride 5 MG DAILY 07/17 1145 AC PO Furosemide 20 MG ONCE ONE 07/16 1715 DC 07/16 IV 07/16 1716 1715 Furosemide 0 .STK-MED ONE 07/16 1703 DC IV Insulin Aspart 0 .STK-MED ONE 07/17 0807 DC SC Insulin Aspart 0 .STK-MED ONE 07/16 1625 DC SC Insulin Aspart 0 TIDAC 07/16 0800 AC 07/17 SC 1141 Oxycodone HCl 0 .STK-MED ONE 07/17 0811 DC PO Oxycodone HCl 0 .STK-MED ONE 07/16 2056 DC PO Oxycodone HCl 40 MG BID 07/15 2254 AC 07/17 PO 0809 Oxycodone/ 2 TAB Q12P PRN 07/16 1041 AC 07/17 Acetaminophen PO 1141 Impression/Plan Impression/Problem List Impression: 73 YO M with PMH of HTN, DM, emphysema, hematuria for over 3 years, had an extensive workup last year including cystoscopy, bladder biopsy without any positive findings presented to the ED with chief complaint of difficulty to void , started 1 week ago and was getting progressively worsen until yesterday when he was not able to pass urine. Incidentally, he was also found to have new EKG changes upon arrival to the ER including ST segment depressions involving leads V2 to V6. Subsequently, Dr. Estevez was informed who recommended ICU admission and transfusion for further monitoring. Patient received 1 transfusion in ED. patient received one dose of ceftriaxone in ED, considering WBC in urine and nitites. Patient is being followed in ICU for following problems: Acute on chronic anemia: H&H is stable this morning -Due to blood loss secondary to hematuria. -Considering continuous gross hematuria he received 1 blood transfusion ON 07/14 - Considering patient's EKG changes, we'll need to keep his hemoglobin above 8.5 -He is getting another blood transfusion. we will check cbc after it. -We will monitor him for fluid overload. -Follow-up H&H for drop in hemoglobin. -Guaiac stools, patient reported that he had NO colonoscopies in the past and he is due for another one at [place]. Gross hematuria: Most likely due to prostate -Patient had extensive workup but without finding any etiology. -Could have glomerulopathy that's causing his hematuria. -Continue Solo's catheter with continuous bladder irrigation to prevent obstruction from clots. -Get record from [place] for his hematuria workup. -Avoid any medications that can increase his hematuria like aspirin and heparin. Can progressively go down on CBI till off -Follow up cytology and urine culture.-I called the lab today to check on microscopy, no casts were found -Follow up urology recommendations. EKG changes: Ischemic appearing EKG changes in the setting of anemia When the patient is more stable he is a candidate for cardiac catheterization for possible carotid atherosclerosis. Most likely outpatient We will hold off anticoagulant due to active bleeding We will hold off beta augustine for now since he has history of hypertension and his blood pressure is within normal limits most likely due to volume loss due to bleeding Continue statin -Patient had EKG changes, ST segment and T wave inversion in V2 to V6. -His troponin at remained negative. 0.01, 0.01 -Cardiology recommended cardiac cath after stabilization to rule out ischemia. -Echo showed normal ejection fraction with posterior wall hypokinesia, TR and pulmonary hypertension History of chronic kidney disease: -His last creatinine was in December 2016 that was 1.7 GFR was 40. -Stage III kidney disease -On presentation his creatinine was 1.5 and today it's 1.4 -Continue monitoring his BUN/creatinine level -Continue monitoring his input and output -Avoid nephrotoxins medications History of hypertension and hyperlipidemia: -Continue Lipitor -Holding his atenolol and lisinopril. If he remained hemodynamically stable we' ll restarted. History of diabetes: -Accu-Cheks, his fasting blood sugar level is 168 this morning. -Insulin NovoLog according to sliding scale -Hold metformin while patient in the hospital. DVT prophylaxis: Mechanical only CODE STATUS: Full code Problem List: 1. Anemia 2. Hematuria Pain Ratin Tomorrow's Labs & Rationales: CBC ICU bundle Plan DVT/Prophylaxis: mechanical
--- NOTE | 2018-07-17 08:26 | ECHOCARDIOGRAM REPORT ---
MAMI SHETH Age: 73 : 1945 Gender: M Exam Date: 07/16/2018 09:05 Exam Location: [facility] Ht (in): 71 Wt (lb): 290 BSA: 2.62 BP: / Ordering Physician: Carlee Greene MD Referring Physician: Carlee Greene MD Technologist: Maria Isabel Meléndez [facility] Room Number: 110 Indications: Rhythm: Sinus Technical Quality: good FINDINGS Left Ventricle Normal left ventricular size, wall thickness and systolic function with moderate posterior wall hypokinesis. Diastolic filling pattern is consistent with impaired LV relaxation. The ejection fraction is visually estimated at 60%. Right Ventricle The right ventricle is normal in size and function. Right Atrium The right atrium is normal in size. Left Atrium The left atrium is moderately enlarged. The interatrial septum is intact. Mitral Valve The mitral valve is normal in structure and function. There is trace mitral regurgitation. Aortic Valve Mildly sclerotic aortic valve without significant stenosis. There is trace aortic regurgitation. Tricuspid Valve The tricuspid valve is normal in structure and function. There is moderate tricuspid regurgitation. Pulmonary artery systolic pressure is severely elevated to 65mmHg. Pulmonic Valve Structurally normal pulmonic valve. There is mild pulmonic regurgitation. Pericardium Normal pericardium without effusion. No pleural effusion. Great Vessels Normal aortic root dimension. The aortic arch and great vessels are well seen and are normal. CONCLUSIONS 1. Normal EF of 60% with moderate posterior wall hypokinesis and impaired LV relaxation. 2. Moderate left atrial enlargement. 3. Trace mitral regurgitation. 4. Moderate tricuspid regurgitation. 5. Mild pulmonic regurgitation. 6. Trace aotic insufficiency. 7. Moderate to severe pulmonary hypertension. Alec Estevez M.D. (Electronically Signed) Final Date: 17 July 2018 08:25 MEASUREMENTS (Male / Female) Normal Values
--- NOTE | 2018-07-17 09:38 | PN- CRCU ---
Subjective HPI/Critical Care Issues: Doing better Hematuria improving Afebrile No chest discomfort Continues to be on oxygen Objective Current Medications: Current Medications Sig/Dolores Start time Last Medication Dose Route Stop Time Status Admin Atorvastatin Calcium 20 MG 1700 07/16 1700 AC 07/16 PO 1625 Furosemide 20 MG ONCE ONE 07/16 1715 DC 07/16 IV 07/16 1716 1715 Furosemide 0 .STK-MED ONE 07/16 1703 DC IV Insulin Aspart 0 .STK-MED ONE 07/17 0807 DC SC Insulin Aspart 0 .STK-MED ONE 07/16 1625 DC SC Insulin Aspart 0 .STK-MED ONE 07/16 1125 DC SC Insulin Aspart 0 TIDAC 07/16 0800 AC 07/17 SC 0810 Lidocaine 10 ML ONCE ONE 07/16 1045 DC 07/16 TOP 07/16 1046 1419 Magnesium Oxide 400 MG ONE ONE 07/16 1000 DC 07/16 PO 07/16 1001 1108 Oxycodone HCl 0 .STK-MED ONE 07/17 0811 DC PO Oxycodone HCl 0 .STK-MED ONE 07/16 2056 DC PO Oxycodone HCl 40 MG BID 07/15 2254 AC 07/17 PO 0809 Oxycodone/ 0 .STK-MED ONE 07/16 1108 DC Acetaminophen PO Oxycodone/ 2 TAB Q12P PRN 07/16 1041 AC 07/16 Acetaminophen PO 1115 Oxycodone/ 2 TAB BID 07/15 2254 DC Acetaminophen PO Vital Signs & I&O Last 24 Hrs of Vitals and I&O: Vital Signs Date Time Temp Pulse Resp B/P B/P Pulse O2 O2 Flow FiO2 Mean Ox Delivery Rate 07/17 0800 92 Nasal 3.0L Cannula 07/17 0800 98.0 76 20 110/60 92 Nasal 3.0L Cannula 07/17 0400 92 Nasal 3.0L Cannula 07/17 0000 92 Nasal 3.0L Cannula 07/16 2336 97.2 73 14 118/52 93 Nasal 3.0L Cannula 07/16 2000 92 Nasal 3.0L Cannula 07/16 1600 93 Nasal 4.0L Cannula 07/16 1600 97.3 68 20 130/70 93 Nasal 4.0L Cannula 07/16 1200 94 Nasal 3.0L Cannula Intake & Output 07/17 1600 07/17 0800 07/17 0000 Intake Total 120 540 Output Total 1450 2425 Balance -1330 -1885 Intake, IV 0 0 Intake, Oral 120 540 Number 0 0 Bowel Movements Output, Urine 1450 2425 Impression/Plan Impression/Plan Impression/Plan: SIGNIFICANT DATA Chest x-ray showed improving basilar atelectasis with chronic rib fractures Creatinine is improved to 1.4 hemoglobin 9.6 stable cultures pending This is a gentleman who usually gets his care at [facility] with recurrent hematuria with prior workup apparently negative, COPD hypertension diabetes, came into the emergency room because he had significant hematuria. Subsequently was noted to have diffuse EKG changes in the lateral leads. Patient was not having any chest pain or palpitations. Now he continues to have abdominal discomfort and pain around the Solo area. ECHO CONCLUSIONS 1. Normal EF of 60% with moderate posterior wall hypokinesis and impaired LV relaxation. 2. Moderate left atrial enlargement. 3. Trace mitral regurgitation. 4. Moderate tricuspid regurgitation. 5. Mild pulmonic regurgitation. 6. Trace aotic insufficiency. 7. Moderate to severe pulmonary hypertension. Exam as noted above continues to have hematuria with mild pain to prior pubic area General Appearance: well developed/nourished, no apparent distress, alert, awake Head: atraumatic Neck: normal inspection, supple Respiratory: normal breath sounds, chest non-tender Cardiovascular: regular rate/rhythm Gastrointestinal: soft, non-tender Extremities: B/L pedal edema grade 1 with chronic venous changes., b/l statis dematitis Neurologic/Psych: awake, alert, oriented x 3 IMPRESSION This is a 73-year-old gentleman with history of diabetes, hypertension, COPD, hematuria with negative workup in the past for two yearsat [facility] now here with * Significant hematuria and blood loss anemia now requiring transfusions with ongoing hematuria with suprapubic pain / now on CBI * Significant EKG changes, no significant pain patient has diabetes however. So far troponin is not significantly elevated/ echo no wall motion abnormality with diastolic disease * Improving Acute kidney injury with probable chronic renal failure * Diabetes, hypertension hyperlipidemia * Significant emphysema with ILD noted in the CAT scan not actively wheezing RECOMMENDATION Continue continuous bladder irrigation Transfuse if hemoglobin drops less than 8.5 Watch for pulmonary edema Replace electrolytes appropriately Patient is not a candidate for anticoagulation due to gross hematuria Await cultures hold further antibiotics for now urine for cytology PRNnebulizer if he is wheezing Will follow closely pt needs icu
--- NOTE | 2018-07-17 11:14 | PN- Cardiology ---
Subjective Subjective: * Doing well without chest discomfort, shortness of breath, lightheadedness or palpitations. * sinus rhythm with ST-T waves * creatinine 1.4 * normal troponin * improved H/H to 9.6/29.8 * Normal EF on echo Objective Vital Signs and I&Os Vital Signs Date Time Temp Pulse Resp B/P B/P Pulse O2 O2 Flow FiO2 Mean Ox Delivery Rate 07/17 08 92 Nasal 3.0L Cannula 07/17 08 98.0 76 20 110/60 92 Nasal 3.0L Cannula 07/17 0400 92 Nasal 3.0L Cannula 07/17 0000 92 Nasal 3.0L Cannula 07/16 2336 97.2 73 14 118/52 93 Nasal 3.0L Cannula 07/16 2000 92 Nasal 3.0L Cannula 07/16 1600 93 Nasal 4.0L Cannula 07/16 1600 97.3 68 20 130/70 93 Nasal 4.0L Cannula 07/16 1200 94 Nasal 3.0L Cannula Intake & Output 07/17 1600 07/17 0800 07/17 0000 07/16 1600 07/16 0800 07/16 0000 Intake Total 120 540 990 578 30 Output Total 1450 2425 192 366 2185 Balance -1330 -1885 215 153 -1670 Intake, Blood 350 338 Product Intake, IV 0 0 0 Intake, Oral 120 540 400 240 Intake, Other 240 30 Number 0 0 0 0 Bowel Movements Output, Urine 1450 2425 [phone] Patient 281 lb Weight Weight Bed scale Measurement Method Physical Exam: General: WD/obese male in NAD; alert and oriented x 3 HEENT: NC/AT, PERRL, EOMI Neck: no obvious JVD, no carotid bruit Heart: RRR w/o murmur Lungs: clear bilaterally Abdomen: soft, obese, tender with radiation toward his groin, +ve bowel sounds Extremities: no edema Assessment/Plan Assessment/Plan * This patient has ischemic appearing ECG changes in the setting of anemia. In consideration of his multiple risk factors for CAD, I suspect he has significant coronary atherosclerosis. When more stable this issue can be evaluated by a cardiac catheterization. In consideration of the diffuse ECG changes nuclear imaging would be unreliable due to the possibility that the images could appear normal due to balanced ischemia. The ECG portion of a stress test would not be helpful since he already has ischemic changes at baseline. * Would not begin anticoagulation in this patient due to his active bleeding but he should continue on a statin. I would not begin beta blockers at this point in time since he carries a history of hypertension and is currently in the normal range probably related to volume loss. * Normal EF on echocardiogram with posterior wall hypokinesis. TR and pulmonary hypertension is also noted. Continue telemetry? Yes
--- NOTE | 2018-07-17 12:08 | Cons- Urology ---
General Information and HPI Consulting Request Date of Consult: 07/17/18 Requested By: Megan Daomn MD Reason for Consult: gross hematuria Source of Information: patient Exam Limitations: no limitations History of Present Illness: 73yo male with PMH of hypertension, diabetes, emphysema, intermittent hematuria for over 3 years presented to the ED with chief complaint of difficulty voiding which started 1 week ago and was getting progressively worse until yesterday when he was not able to void at all. He has been evaluated at the over the last three years including colonoscopy and extensive imaging done including biopsy to diagnose the cause of hematuria however all investigations were negative as per the patient. 1 year ago he was admitted to the [facility] for similar complaints of hematuria and severe anemia for which he received multiple blood transfusion and was started on iron supplement. Patient also reports soreness in the lower abdomen due to constant straining to void. He denies any flank or abdominal pain. He denies F/C/N/V. Patient denies any herbal supplement, NSAID or aspirin use. No recent changes to his medications. Patient denies any chest pain, shortness of breath, dizziness, nausea, vomiting, diarrhea or melena. He lives at home and walks independently. Urologically speaking, he has never been on any prostate meds or been told he has CAP or BPH. He has no fam hx either. He does not know his PSA but is certain it was checked. He has no hx of kidney stones, UTIs or prostatitis. Allergies/Medications Allergies: Coded Allergies: NO KNOWN ALLERGIES (05/25/11) Home Med List: Atenolol 25 MG TABLET 1 TAB PO DAILY BP (Reported) Atorvastatin Calcium (Unknown Strength) TABLET (Unknown Dose) PO AD CHOLESTEROL (Reported) Ferrous Sulfate 325 MG (65 MG IRON) TABLET 1 TAB PO BID SUPPLEMENT (Reported) Glipizide 10 MG TABLET 1 TAB PO BID DM (Reported) Lisinopril/Hydrochlorothiazide (Lisinopril-Hctz 20-12.5 MG Tab) (Unknown Strength) TABLET (Unknown Dose) PO DAILY BP (Reported) Metformin HCl (Metformin HCl ER) 500 MG TAB.ER.24H 2 TAB PO QAM DM (Reported) Oxycodone HCl (Oxycontin) 40 MG TAB.ER.12H 1 TAB PO BID PAIN (Reported) Oxycodone HCl/Acetaminophen (Percocet 5-325 MG Tablet) 5 MG-325 MG TABLET 2 TAB PO BID PAIN (Reported) Past History Medical History Blood Transfusion Hx: Yes Neurological: NONE EENT: NONE Cardiovascular: hypertension, hyperlipidemia Respiratory: COPD Gastrointestinal: NONE Hepatic: NONE Renal: hematuria Musculoskeletal: NONE Psychiatric: NONE Endocrine: diabetes Blood Disorders: anemia Cancer(s): NONE 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 Home Smoking Status: Former Smoker Review of Systems Review of Systems Constitutional: Reports: no symptoms. EENTM: Reports: no symptoms. Cardiovascular: Reports: no symptoms. Respiratory: Reports: no symptoms. GI: Reports: no symptoms. Genitourinary: Reports: pain. Musculoskeletal: Reports: no symptoms. Skin: Reports: no symptoms. Neurological/Psychological: Reports: no symptoms. Hematologic/Endocrine: Reports: bleeding. Immunologic/Allergic: Reports: no symptoms. Exam & Diagnostic Data Vital Signs and I&O Vital Signs Date Time Temp Pulse Resp B/P B/P Pulse O2 O2 Flow FiO2 Mean Ox Delivery Rate 07/17 0800 92 Nasal 3.0L Cannula 07/17 08 98.0 76 20 110/60 92 Nasal 3.0L Cannula 07/17 0400 92 Nasal 3.0L Cannula 07/17 0000 92 Nasal 3.0L Cannula 07/16 2336 97.2 73 14 118/52 93 Nasal 3.0L Cannula 07/16 2000 92 Nasal 3.0L Cannula 07/16 1600 93 Nasal 4.0L Cannula 07/16 1600 97.3 68 20 130/70 93 Nasal 4.0L Cannula Intake & Output 07/17 1600 07/17 0800 07/17 0000 07/16 1600 07/16 0800 07/16 0000 Intake Total 120 540 990 578 30 Output Total 1450 2425 338 779 2675 Balance -1330 -1885 215 153 -1670 Intake, Blood 350 338 Product Intake, IV 0 0 0 Intake, Oral 120 540 400 240 Intake, Other 240 30 Number 0 0 0 0 Bowel Movements Output, Urine 1450 2425 [phone] Patient 127.573 kg Weight Weight Bed scale Measurement Method Physical Exam General Appearance: well developed/nourished, no apparent distress, alert, awake , comfortable Head: atraumatic, normal appearance Eyes: Bilateral: normal appearance. Ears, Nose, Throat: normal ENT inspection Neck: normal inspection Respiratory: no respiratory distress Cardiovascular: regular rate/rhythm Gastrointestinal: soft, non-tender Rectal: deferred Back: normal inspection Extremities: normal inspection Neurologic/Psych: awake, alert, oriented x 3 Cranial Nerves: normal hearing, normal speech Skin: intact, normal color, warm/dry Reproductive: Normal male genitalia Other Physical Findings: CBI in place and running on fast drip and irrigation output is pinkn tinged Last 24 Hours of Labs: Laboratory Tests 07/17 07/16 0409 1610 Chemistry Sodium (137 - 145 mmol/L) 138 Potassium (3.5 - 5.1 mmol/L) 4.8 Chloride (98 - 107 mmol/L) 107 Carbon Dioxide (22 - 30 mmol/L) 23 Anion Gap (5 - 16) 9 BUN (9 - 20 mg/dL) 20 Creatinine (0.7 - 1.2 mg/dL) 1.4 H Estimated GFR (>60 ml/min) 50 L Glucose (65 - 99 mg/dL) 196 H Calcium (8.4 - 10.2 mg/dL) 8.8 Phosphorus (2.5 - 4.5 mg/dL) 5.4 H Magnesium (1.6 - 2.3 mg/dL) 1.9 Total Bilirubin (0.2 - 1.3 mg/dL) 0.3 AST (17 - 59 U/L) 15 L ALT (21 - 72 U/L) 26 Albumin (3.5 - 5.0 g/dL) 3.2 L Hematology CBC w Diff NO MAN DIFF REQ NO MAN DIFF REQ WBC (4.8 - 10.8 /CUMM) 9.9 8.6 RBC (4.70 - 6.10 /CUMM) 3.14 L 3.05 L Hgb (14.0 - 18.0 G/DL) 9.6 L 9.4 L Hct (42 - 52 %) 29.8 L 28.7 L MCV (80.0 - 94.0 FL) 95.0 H 94.2 H MCH (27.0 - 31.0 PG) 30.5 30.7 MCHC (33.0 - 37.0 G/DL) 32.2 L 32.5 L RDW (11.5 - 14.5 %) 17.1 H 17.3 H Plt Count (130 - 400 /CUMM) 230 210 MPV (7.4 - 10.4 FL) 7.5 7.6 Gran % (42.2 - 75.2 %) 75.2 78.6 H Lymphocytes % (20.5 - 51.1 %) 13.0 L 11.5 L Monocytes % (1.7 - 9.3 %) 8.1 7.4 Eosinophils % (0 - 5 %) 3.2 1.9 Basophils % (0.0 - 2.0 %) 0.5 0.6 Absolute Granulocytes (1.4 - 6.5 /CUMM) 7.5 H 6.8 H Absolute Lymphocytes (1.2 - 3.4 /CUMM) 1.3 1.0 L Absolute Monocytes (0.10 - 0.60 /CUMM) 0.8 H 0.6 Absolute Eosinophils (0.0 - 0.7 /CUMM) 0.3 0.2 Absolute Basophils (0.0 - 0.2 /CUMM) 0 0 Imaging Results: CT abd/pelvis KIDNEYS AND URETERS: The kidneys are normal in size, shape, and attenuation. No hydronephrosis, hydroureter, or calculi seen. No perinephric stranding. There are renal cysts in the lower pole and upper pole of the right kidney. Largest at lower pole is pedunculated inferiorly. Measures 4.8 cm. Assessment/Plan Assessment/Plan 73yo male with unclear etiology of intermittent gross hematuria over the last three years and required blood transfusion at one time. Again no abnormalities seen on Ct abd/pelvis on this admission. It may be due to his prostate as some med bleed from the prostate especially if no other source is found. recommend starting proscar 5mg daily in am. Let the patient know this and that is lowers the PSA by half. [facility] No need for intervention at this time as long as HCT stays stable and urine clears. Can progressively slow down CBI to off. Consult Acknowledgment - Thank you for your consult request.
[2018-07-17 16:00] VITALS: BP 110/50
[2018-07-17 23:00] VITALS: BP 140/70
[2018-07-18 05:03] LABS: ABSOLUTE BASOPHIL COUNT 0 /CUMM (0.0-0.2); ABSOLUTE EOSINOPHIL COUNT 0.3 /CUMM (0.0-0.7); ABSOLUTE GRANULOCYTE CT 8.1 /CUMM (1.4-6.5); ABSOLUTE LYMPH COUNT 1.1 /CUMM (1.2-3.4); ABSOLUTE MONOCYTE COUNT 0.8 /CUMM (0.10-0.60); BASOPHIL % 0.2 % (0.0-2.0); EOSINOPHIL % 2.6 % (0-5); GRANULOCYTE % 79.3 % (42.2-75.2); HEMATOCRIT 29.6 % (42-52); MEAN CORPUSCULAR HGB 30.7 PG (27.0-31.0); MEAN CORPUSCULAR HGB CONC 32.4 G/DL (33.0-37.0); MEAN CORPUSCULAR VOLUME 94.7 FL (80.0-94.0); MEAN PLATELET VOLUME 7.4 FL (7.4-10.4); PLATELET COUNT 229 /CUMM (130-400); RBC DISTRIBUTION WIDTH 16.1 % (11.5-14.5); RED BLOOD CELL CT 3.13 /CUMM (4.70-6.10); WHITE BLOOD CELL COUNT 10.2 /CUMM (4.8-10.8)
--- NOTE | 2018-07-18 07:01 | PN- Resident CRCU ---
Subjective HPI/CRCU Issues: Acute on chronic anemia, possibly due to blood loss Gross hematuria, unknown etiology EKG changes Acute hypoxic respiratory failure due to basilar opacities History of chronic kidney disease History of hypertension and hyperlipidemia History of diabetes 24 Hour Events: No overnight events. Patient remained afebrile. Seen and examined this morning. On 4 L of oxygen and maintaining saturation 91%. Patient denied chest pain, nausea, vomiting, chills, palpitation, abdominal pain dysuria. Patient is getting bladder irrigation. Objective Vital Signs & I&O Last 8 Hrs of Vitals and I&O: Intake & Output 07/18 1600 07/18 0800 07/18 0000 Intake Total 400 60 420 Output Total 850 1000 1300 Balance -450 -940 -880 Intake, Oral 400 60 420 Number 0 0 Bowel Movements Output, Urine 850 1000 1300 Patient 281 lb Weight Laboratory Tests 07/18 07/18 1830 0402 Chemistry Sodium (137 - 145 mmol/L) 137 Potassium (3.5 - 5.1 mmol/L) 4.4 Chloride (98 - 107 mmol/L) 106 Carbon Dioxide (22 - 30 mmol/L) 23 Anion Gap (5 - 16) 8 BUN (9 - 20 mg/dL) 20 Creatinine (0.7 - 1.2 mg/dL) 1.4 H Estimated GFR (>60 ml/min) 50 L Glucose (65 - 99 mg/dL) 174 H Calcium (8.4 - 10.2 mg/dL) 8.3 L Phosphorus (2.5 - 4.5 mg/dL) 3.9 Magnesium (1.6 - 2.3 mg/dL) 1.8 Total Bilirubin (0.2 - 1.3 mg/dL) 0.4 AST (17 - 59 U/L) 14 L ALT (21 - 72 U/L) 25 Troponin I Pending Albumin (3.5 - 5.0 g/dL) 3.2 L Hematology CBC w Diff NO MAN DIFF REQ WBC (4.8 - 10.8 /CUMM) 10.2 RBC (4.70 - 6.10 /CUMM) 3.13 L Hgb (14.0 - 18.0 G/DL) 9.6 L Hct (42 - 52 %) 29.6 L MCV (80.0 - 94.0 FL) 94.7 H MCH (27.0 - 31.0 PG) 30.7 MCHC (33.0 - 37.0 G/DL) 32.4 L RDW (11.5 - 14.5 %) 16.1 H Plt Count (130 - 400 /CUMM) 229 MPV (7.4 - 10.4 FL) 7.4 Gran % (42.2 - 75.2 %) 79.3 H Lymphocytes % (20.5 - 51.1 %) 10.4 L Monocytes % (1.7 - 9.3 %) 7.5 Eosinophils % (0 - 5 %) 2.6 Basophils % (0.0 - 2.0 %) 0.2 Absolute Granulocytes (1.4 - 6.5 /CUMM) 8.1 H Absolute Lymphocytes (1.2 - 3.4 /CUMM) 1.1 L Absolute Monocytes (0.10 - 0.60 /CUMM) 0.8 H Absolute Eosinophils (0.0 - 0.7 /CUMM) 0.3 Absolute Basophils (0.0 - 0.2 /CUMM) 0 Intake & Output 07/18 1600 Intake Total 400 Output Total 850 Balance -450 Intake, Oral 400 Output, Urine 850 Patient 281 lb Weight Exam General Appearance: well developed/nourished, no apparent distress, alert, awake Head: atraumatic Neck: normal inspection, supple Respiratory: normal breath sounds, chest non-tender Cardiovascular: regular rate/rhythm, edema Gastrointestinal: normal bowel sounds, soft Extremities: B/L chronic venous cahnges Skin Temp/Moisture Exam: Warm/Dry Sepsis Skin Exam (color): Normal for Ethnicity Current Medications: Current Medications Sig/Dolores Start time Last Medication Dose Route Stop Time Status Admin Atorvastatin Calcium 20 MG 1700 07/16 1700 AC 07/18 PO 1631 Calcium Carbonate 500 MG ONCE ONE 07/18 1630 DC 07/18 PO 07/18 1631 1631 Calcium Carbonate 500 MG ONCE ONE 07/18 1230 DC 07/18 PO 07/18 1231 1227 Calcium Carbonate 0 .STK-MED ONE 07/18 1227 DC PO Calcium Carbonate 0 .STK-MED ONE 07/18 0348 DC PO Calcium Carbonate 500 MG ONCE ONE 07/18 0345 DC 07/18 PO 07/18 0346 0352 Finasteride 5 MG DAILY 07/17 1145 AC 07/18 PO 0837 Insulin Aspart 0 TIDAC 08/18 0800 07/18 SC 1221 Magnesium Oxide 400 MG ONE ONE 07/18 0715 DC 07/18 PO 07/18 0716 0837 Omeprazole 40 MG DAILY AC 07/18 1622 AC 07/18 PO 1631 Ondansetron HCl 4 MG ONCE ONE 07/18 1830 DC 07/18 IV 07/18 1831 1836 Ondansetron HCl 0 .STK-MED ONE 07/18 1824 DC .ROUTE Oxycodone HCl 40 MG BID 07/15 2254 AC 07/18 PO 0837 Oxycodone/ 2 TAB Q12P PRN 07/16 1041 AC 07/18 Acetaminophen PO 1222 Impression/Plan Impression/Problem List Impression: 73 YO M with PMH of HTN, DM, emphysema, hematuria for over 3 years, had an extensive workup last year including cystoscopy, bladder biopsy without any positive findings presented to the ED with chief complaint of difficulty to void , started 1 week ago and was getting progressively worsen until yesterday when he was not able to pass urine. Incidentally, he was also found to have new EKG changes upon arrival to the ER including ST segment depressions involving leads V2 to V6. Subsequently, Dr. Estevez was informed who recommended ICU admission and transfusion for further monitoring. Patient received 1 transfusion in ED. patient received one dose of ceftriaxone in ED, considering WBC in urine and nitites. Following the patient in ICU for following problems: Acute on chronic anemia: -Due to blood loss secondary to hematuria. -Patient received 2 blood transfusions total. -Patient's hemoglobin in December 2016 was 10.3 and he presented with hemoglobin of 8.3 yesterday. Considering patient's EKG changes, we'll need to keep his hemoglobin above 8.5 -We will monitor him for fluid overload. -Follow-up H&H for drop in hemoglobin. -Today's hemoglobin is 9.6. -Guaiac stools, patient reported that he had colonoscopies in the past and he is due for another one at [facility]. Gross hematuria:(improving) -Patient had extensive workup but without finding any etiology. -Could have glomerulopathy that's causing his hematuria. -Continue Solo's catheter with continuous bladder irrigation to prevent obstruction from clots. -Avoid any medications that can increase his hematuria like aspirin and heparin. -Neurology recommended to start him on finasteride to shrunken the size of prostate. -Follow up cytology and urine culture. -Follow up urology recommendations. EKG changes: -Patient had EKG changes, ST segment and T wave inversion in V2 to V6. -His troponin at remained negative. 0.01, 0.01 -Cardiology recommended cardiac cath after stabilization to rule out ischemia. -Echo showed ejection fraction 60%. Acute hypoxic respiratory failure: -Patient has bibasilar opacities possibly due to atelectasis as he remained afebrile and WBC count remained within normal limits. Patient also having emphysema and his morbid obesity can cause this hypoxic respiratory failure. -Patient is on 4 L of oxygen and maintaining saturation 91%. -Incentive spirometer -Watch for signs of fluid overload/pulmonary edema -We will try to wean off his oxygen as tolerated keeping his oxygen saturation above 92%. History of chronic kidney disease: -His last creatinine was in December 2016 that was 1.7 GFR was 40. -Stage III kidney disease -On presentation his creatinine was 1.5 and today it's 1.4 -Today his creatinine level is 1.4 -Avoid nephrotoxins medications History of hypertension and hyperlipidemia: -Continue Lipitor -Holding his atenolol and lisinopril. If he remained hemodynamically stable we' ll restarted. History of diabetes: -Accu-Cheks, his fasting blood sugar level is 174 this morning. -Insulin NovoLog according to sliding scale -Hold metformin while patient in the hospital. Due to prophylaxis: Mechanical only CODE STATUS: Full code Problem List: 1. Hematuria 2. Anemia Pain Ratin Pain Location: none Pain Plan: pain pathway Tomorrow's Labs & Rationales: cbc/icu bundle Plan DVT/Prophylaxis: mechanical
[2018-07-18 08:00] VITALS: BP 126/70
--- NOTE | 2018-07-18 10:39 | PN- CRCU ---
Subjective HPI/Critical Care Issues: No overnight events. Patient remained afebrile. Seen and examined this morning. On 4 L of oxygen and maintaining saturation 91%. Patient denied chest pain, nausea, vomiting, chills, palpitation, abdominal pain dysuria. Patient is getting bladder irrigation. Objective Current Medications: Current Medications Sig/Dolores Start time Last Medication Dose Route Stop Time Status Admin Atorvastatin Calcium 20 MG 1700 07/16 1700 AC 07/17 PO 1655 Calcium Carbonate 0 .STK-MED ONE 07/18 0348 DC PO Calcium Carbonate 500 MG ONCE ONE 07/18 0345 DC 07/18 PO 07/18 0346 0352 Finasteride 5 MG DAILY 07/17 1145 AC 07/18 PO 0837 Insulin Aspart 0 TIDAC 07/16 0800 AC 07/18 SC 0836 Magnesium Oxide 400 MG ONE ONE 07/18 0715 DC 07/18 PO 07/18 0716 0837 Ondansetron HCl 4 MG ONCE ONE 07/17 1830 DC 07/17 IV 07/17 1831 1827 Ondansetron HCl 0 .STK-MED ONE 07/17 1827 DC .ROUTE Oxycodone HCl 40 MG BID 07/15 2254 AC 07/18 PO 0837 Oxycodone/ 2 TAB Q12P PRN 07/16 1041 AC 07/17 Acetaminophen PO 1141 Vital Signs & I&O Last 24 Hrs of Vitals and I&O: Vital Signs Date Time Temp Pulse Resp B/P B/P Pulse O2 O2 Flow FiO2 Mean Ox Delivery Rate 07/18 0400 91 Nasal 3.0L Cannula 07/18 0000 91 Nasal 3.0L Cannula 07/17 2300 97.3 85 14 140/70 91 Nasal 3.0L Cannula 07/17 1952 90 Nasal 3.0L Cannula 07/17 1600 93 Nasal 3.0L Cannula 07/17 1600 98.3 74 20 110/50 94 Nasal 3.0L Cannula 07/17 1200 92 Nasal 3.0L Cannula Intake & Output 07/18 1600 07/18 0800 07/18 0000 Intake Total 60 420 Output Total 1000 1300 Balance -940 -880 Intake, Oral 60 420 Number 0 0 Bowel Movements Output, Urine 1000 1300 Impression/Plan Impression/Plan Impression/Plan: This is a gentleman who usually gets his care at [facility] with recurrent hematuria with prior workup apparently negative, COPD hypertension diabetes, came into the emergency room because he had significant hematuria. Subsequently was noted to have diffuse EKG changes in the lateral leads. Patient was not having any chest pain or palpitations. Now he continues to have abdominal discomfort and pain around the Solo area. ECHO CONCLUSIONS 1. Normal EF of 60% with moderate posterior wall hypokinesis and impaired LV relaxation. 2. Moderate left atrial enlargement. 3. Trace mitral regurgitation. 4. Moderate tricuspid regurgitation. 5. Mild pulmonic regurgitation. 6. Trace aotic insufficiency. 7. Moderate to severe pulmonary hypertension. Exam as noted above continues to have hematuria with mild pain to prior pubic area General Appearance: well developed/nourished, no apparent distress, alert, awake Head: atraumatic Neck: normal inspection, supple Respiratory: normal breath sounds, chest non-tender Cardiovascular: regular rate/rhythm Gastrointestinal: soft, non-tender Extremities: B/L pedal edema grade 1 with chronic venous changes., b/l statis dematitis Neurologic/Psych: awake, alert, oriented x 3 IMPRESSION This is a 73-year-old gentleman with history of diabetes, hypertension, COPD, hematuria with negative workup in the past for two yearsat [employer] [facility] now here with * Significant hematuria and blood loss anemia now s/p transfusions with ongoing hematuria with suprapubic discomfort / now on CBI / urology onboard and they have recommended proscar * Significant EKG changes, no significant pain patient has diabetes however. So far troponin is not significantly elevated/ echo no wall motion abnormality with diastolic disease * Improving Acute kidney injury with stage 2 chronic renal failure * Diabetes, hypertension hyperlipidemia * Significant emphysema with ILD noted in the CAT scan not actively wheezing, with morbid obesity with bibailar atx with hypoxia now requiring oxygen RECOMMENDATION Continue continuous bladder irrigation per urology Transfuse if hemoglobin drops less than 8.5 Watch for pulmonary edema Replace electrolytes appropriately Patient is not a candidate for anticoagulation due to gross hematuria Await cultures hold further antibiotics for now urine for cytology PRNnebulizer if he is wheezing Will follow closely IF ok with cardio can go to tele
--- NOTE | 2018-07-18 15:00 | Transfer of Care Summary ---
Hospital Course Course Hospital Course: Reason for ICU admission: Patient was admitted to ICU in the setting of gross hematuria and T-wave inversion with ST segment changes from lead V2 to V6 on EKG. History of presenting illness: 73 YO M with PMH of HTN, DM, emphysema, hematuria for over 3 years, had an extensive workup last year including cystoscopy, bladder biopsy without any positive findings presented to the ED with chief complaint of difficulty to void , started 1 week ago and was getting progressively worsen until yesterday when he was not able to pass urine. Incidentally, he was also found to have new EKG changes upon arrival to the ER including ST segment depressions involving leads V2 to V6. Subsequently, Dr. Estevez was informed who recommended ICU admission and transfusion for further monitoring. Patient received 1 transfusion in ED. patient received one dose of ceftriaxone in ED, considering WBC in urine and nitites. Interval events in ICU: Patient was admitted in ICU and 3-way Solo's catheter was passed with continuous bladder irrigation. Considering patient's ongoing cardiac ischemia in the setting of EKG changes but negative troponin patient was given total 2 blood transfusions to keep his hemoglobin above 8.5. Cardiology recommendations were followed. Patient was continued on Lipitor but considering his ongoing hematuria he was not given any aspirin or heparin. Cardiology recommended cardiac cath later on to rule out atherosclerotic disease of coronary. Urology consultation was obtained and recommendations were followed. Patient was started on finasteride shrunken his prostate size. Patient developed acute hypoxic respiratory failure in the setting of bilateral bibasilar opacities and history of emphysema and morbid obesity. Right now patient is on 4 L and maintaining saturation 91%. Mechanical ventilation: Never been intubated NPPV: Never been on BiPAP/CPAP Antibiotic plan: Patient remained afebrile and WBC count remained within normal limits so no antibiotics were recommended. Catheters/lines: Continuing his 3-way Solo's for continuous bladder irrigation. Things to follow-up on floor: -Follow-up urology recommendations for 3-way Solo's. -Follow-up urine cytology results. -Follow up cardiology recommendations for cardiac cath in future. -Please closely monitor for pulmonary edema. -Try to wean off his oxygen as tolerated keeping his oxygen saturation above 92% . Nutrition: Diabetic diet DVT prophylaxis: Mechanical only considering his hematuria CODE STATUS: Full code Assessment/Plan: Acute on chronic anemia: -Due to blood loss secondary to hematuria. -Patient received 2 blood transfusions total. -Patient's hemoglobin in December 2016 was 10.3 and he presented with hemoglobin of 8.3 yesterday. Considering patient's EKG changes, we'll need to keep his hemoglobin above 8.5 -We will monitor him for fluid overload. -Follow-up H&H for drop in hemoglobin. -Today's hemoglobin is 9.6. -Guaiac stools, patient reported that he had colonoscopies in the past and he is due for another one at [facility]. Gross hematuria:(improving) -Patient had extensive workup but without finding any etiology. -Could have glomerulopathy that's causing his hematuria. -Continue Solo's catheter with continuous bladder irrigation to prevent obstruction from clots. -Avoid any medications that can increase his hematuria like aspirin and heparin. -Neurology recommended to start him on finasteride to shrunken the size of prostate. -Follow up cytology and urine culture. -Follow up urology recommendations. EKG changes: -Patient had EKG changes, ST segment and T wave inversion in V2 to V6. -His troponin at remained negative. 0.01, 0.01 -Cardiology recommended cardiac cath after stabilization to rule out ischemia. -Echo showed ejection fraction 60%. Acute hypoxic respiratory failure: -Patient has bibasilar opacities possibly due to atelectasis as he remained afebrile and WBC count remained within normal limits. Patient also having emphysema and his morbid obesity can cause this hypoxic respiratory failure. -Patient is on 4 L of oxygen and maintaining saturation 91%. -Incentive spirometer -Watch for signs of fluid overload/pulmonary edema -We will try to wean off his oxygen as tolerated keeping his oxygen saturation above 92%. History of chronic kidney disease: -His last creatinine was in December 2016 that was 1.7 GFR was 40. -Stage III kidney disease -On presentation his creatinine was 1.5 and today it's 1.4 -Today his creatinine level is 1.4 -Avoid nephrotoxins medications History of hypertension and hyperlipidemia: -Continue Lipitor -Holding his atenolol and lisinopril. If he remained hemodynamically stable we' ll restarted. History of diabetes: -Accu-Cheks, his fasting blood sugar level is 174 this morning. -Insulin NovoLog according to sliding scale -Hold metformin while patient in the hospital. Due to prophylaxis: Mechanical only CODE STATUS: Full code
[2018-07-18 16:00] VITALS: BP 120/64
--- NOTE | 2018-07-18 19:30 | PN- Cardiology ---
Subjective Subjective: * Patient complained of chest discomfort today accompanied by nausea. * sinus rhythm with ST-T waves abnormalities * creatinine 1.4 * normal troponin * stable anemia with persistent hematuria * Normal EF on echo Objective Vital Signs and I&Os Vital Signs Date Time Temp Pulse Resp B/P B/P Pulse O2 O2 Flow FiO2 Mean Ox Delivery Rate 07/18 1200 92 Nasal 4.0L Cannula 07/18 0800 97.4 0 24 126/70 91 Nasal 5.0L Cannula 07/18 0800 92 Nasal 5.0L Cannula 07/18 0400 91 Nasal 3.0L Cannula 07/18 0000 91 Nasal 3.0L Cannula 07/17 2300 97.3 85 14 140/70 91 Nasal 3.0L Cannula 07/17 195 90 Nasal 3.0L Cannula Intake & Output 07/18 1600 07/18 0800 07/18 0000 07/17 1600 07/17 0800 07/17 0000 Intake Total 400 60 420 500 120 540 Output Total 850 1000 1300 1200 1450 2425 Balance -450 -940 -880 -700 -1330 -1885 Intake, IV 0 0 Intake, Oral 400 60 420 500 120 540 Number 0 0 0 0 Bowel Movements Output, Urine 850 1000 1300 1200 1450 2425 Patient 281 lb Weight Physical Exam: General: WD/obese male in NAD; alert and oriented x 3 HEENT: NC/AT, PERRL, EOMI Neck: no obvious JVD, no carotid bruit Heart: RRR w/o murmur Lungs: clear bilaterally Abdomen: soft, obese, tender with radiation toward his groin, +ve bowel sounds Extremities: no edema Assessment/Plan Assessment/Plan * This patient has ischemic appearing ECG changes in the setting of anemia. In consideration of his multiple risk factors for CAD, I suspect he has significant coronary atherosclerosis. When more stable this issue can be evaluated by a cardiac catheterization. In consideration of the diffuse ECG changes nuclear imaging would be unreliable due to the possibility that the images could appear normal due to balanced ischemia. The ECG portion of a stress test would not be helpful since he already has ischemic changes at baseline. * Would not begin anticoagulation in this patient due to his active bleeding but he should continue on a statin. I would not begin beta blockers at this point in time since he carries a history of hypertension and is currently in the normal range probably related to volume loss. * Normal EF on echocardiogram with posterior wall hypokinesis. TR and pulmonary hypertension is also noted. Continue telemetry? Yes
[2018-07-19] VITALS: BP 130/60
[2018-07-19 04:21] LABS: ABSOLUTE BASOPHIL COUNT 0 /CUMM (0.0-0.2); ABSOLUTE EOSINOPHIL COUNT 0.1 /CUMM (0.0-0.7); ABSOLUTE GRANULOCYTE CT 9.9 /CUMM (1.4-6.5); ABSOLUTE MONOCYTE COUNT 0.7 /CUMM (0.10-0.60); BASOPHIL % 0 % (0.0-2.0); HEMATOCRIT 28.7 % (42-52); MEAN CORPUSCULAR HGB 30.5 PG (27.0-31.0); MEAN CORPUSCULAR HGB CONC 32.4 G/DL (33.0-37.0); MEAN CORPUSCULAR VOLUME 94.2 FL (80.0-94.0); MEAN PLATELET VOLUME 7.1 FL (7.4-10.4); PLATELET COUNT 226 /CUMM (130-400); RBC DISTRIBUTION WIDTH 15.1 % (11.5-14.5); RED BLOOD CELL CT 3.05 /CUMM (4.70-6.10); WHITE BLOOD CELL COUNT 11.7 /CUMM (4.8-10.8)
[2018-07-19 05:21] LABS: GRANULOCYTE % 84.8 % (42.2-75.2)
--- NOTE | 2018-07-19 07:14 | PN- Resident CRCU ---
Subjective HPI/CRCU Issues: Acute on chronic anemia, possibly due to blood loss Gross hematuria, unknown etiology EKG changes Acute hypoxic respiratory failure due to basilar opacities (IMPROVING) History of chronic kidney disease History of hypertension and hyperlipidemia History of diabetes 24 Hour Events: No overnight events. Patient remained afebrile. Seen and examined this morning. Patient denied chest pain, palpitation, nausea, vomiting, chills, fever and dysuria. Patient reported having constipation and not able to have bowel movement for last 3 days. His hemoglobin is stable. Objective Vital Signs & I&O Last 8 Hrs of Vitals and I&O: Intake & Output 07/19 1600 07/19 0800 07/19 0000 Intake Total 520 100 240 Output Total 1100 600 500 Balance -580 -500 -260 Intake, IV 20 Intake, Oral 500 100 240 Number 0 Bowel Movements Output, Urine 1100 600 500 Laboratory Tests 07/19 07/18 07/18 0350 2130 1830 Chemistry Sodium (137 - 145 mmol/L) 134 L Potassium (3.5 - 5.1 mmol/L) 5.2 H Chloride (98 - 107 mmol/L) 103 Carbon Dioxide (22 - 30 mmol/L) 24 Anion Gap (5 - 16) 8 BUN (9 - 20 mg/dL) 21 H Creatinine (0.7 - 1.2 mg/dL) 1.2 Estimated GFR (>60 ml/min) 60 Glucose (65 - 99 mg/dL) 170 H Calcium (8.4 - 10.2 mg/dL) 8.9 Phosphorus (2.5 - 4.5 mg/dL) 4.3 Magnesium (1.6 - 2.3 mg/dL) 1.9 Total Bilirubin (0.2 - 1.3 mg/dL) 0.4 AST (17 - 59 U/L) 16 L ALT (21 - 72 U/L) 26 Troponin I (<0.11 ng/ml) < 0.01 Albumin (3.5 - 5.0 g/dL) 3.1 L Coagulation APTT Cancelled Hematology CBC w Diff NO MAN DIFF REQ WBC (4.8 - 10.8 /CUMM) 11.7 H RBC (4.70 - 6.10 /CUMM) 3.05 L Hgb (14.0 - 18.0 G/DL) 9.3 L Hct (42 - 52 %) 28.7 L MCV (80.0 - 94.0 FL) 94.2 H MCH (27.0 - 31.0 PG) 30.5 MCHC (33.0 - 37.0 G/DL) 32.4 L RDW (11.5 - 14.5 %) 15.1 H Plt Count (130 - 400 /CUMM) 226 MPV (7.4 - 10.4 FL) 7.1 L Gran % (42.2 - 75.2 %) 84.8 H Lymphocytes % (20.5 - 51.1 %) 8.4 L Monocytes % (1.7 - 9.3 %) 5.8 Eosinophils % (0 - 5 %) 1.0 Basophils % (0.0 - 2.0 %) 0 Absolute Granulocytes (1.4 - 6.5 /CUMM) 9.9 H Absolute Lymphocytes (1.2 - 3.4 /CUMM) 1.0 L Absolute Monocytes (0.10 - 0.60 /CUMM) 0.7 H Absolute Eosinophils (0.0 - 0.7 /CUMM) 0.1 Absolute Basophils (0.0 - 0.2 /CUMM) 0 Intake & Output 07/19 1600 Intake Total 520 Output Total 1100 Balance -580 Intake, IV 20 Intake, Oral 500 Number 0 Bowel Movements Output, Urine 1100 Exam General Appearance: well developed/nourished, no apparent distress, alert, awake Head: atraumatic Neck: normal inspection, supple Respiratory: normal breath sounds, chest non-tender Cardiovascular: regular rate/rhythm, edema Gastrointestinal: normal bowel sounds, soft Extremities: B/L CHRONIC VENOUS CHANGES. Skin Temp/Moisture Exam: Warm/Dry Sepsis Skin Exam (color): Normal for Ethnicity Current Medications: Current Medications Sig/Dolores Start time Last Medication Dose Route Stop Time Status Admin Atorvastatin Calcium 20 MG 1700 07/16 1700 AC 07/18 PO 1631 Bisacodyl 5 MG DAILY 07/19 0900 AC 07/19 PO 0829 Calcium Carbonate 500 MG DAILY 07/19 1049 AC 07/19 PO 1218 Calcium Carbonate 500 MG ONCE ONE 07/18 1630 DC 07/18 PO 07/18 1631 1631 Finasteride 5 MG DAILY 07/17 1145 AC 07/19 PO 0829 Insulin Aspart 0 TIDAC 07/16 0800 AC 07/19 SC 1218 Magnesium Oxide 400 MG ONE ONE 07/19 0730 DC 07/19 PO 07/19 0731 0829 Omeprazole 40 MG DAILY AC 07/18 1622 AC 07/19 PO 0651 Ondansetron HCl 4 MG ONCE ONE 07/19 1100 DC 07/19 PO 07/19 1101 1050 Ondansetron HCl 0 .STK-MED ONE 07/19 1051 DC .ROUTE Ondansetron HCl 4 MG ONCE ONE 07/18 1830 DC 07/18 IV 07/18 1831 1836 Ondansetron HCl 0 .STK-MED ONE 07/18 1824 DC .ROUTE Oxycodone HCl 40 MG BID 07/15 2254 AC 07/19 PO 0829 Oxycodone/ 2 TAB Q12P PRN 07/16 1041 AC 07/18 Acetaminophen PO 1222 Polyethylene Glycol 17 GM DAILY 07/19 0900 AC 07/19 PO 0829 Senna 187 MG AT BEDTIME 07/19 2100 CAN PO Impression/Plan Impression/Problem List Impression: 73 YO M with PMH of HTN, DM, emphysema, hematuria for over 3 years, had an extensive workup last year including cystoscopy, bladder biopsy without any positive findings presented to the ED with chief complaint of difficulty to void , started 1 week ago and was getting progressively worsen until yesterday when he was not able to pass urine. Incidentally, he was also found to have new EKG changes upon arrival to the ER including ST segment depressions involving leads V2 to V6. Subsequently, Dr. Estevez was informed who recommended ICU admission and transfusion for further monitoring. Patient received 1 transfusion in ED. patient received one dose of ceftriaxone in ED, considering WBC in urine and nitites. Following the patient in ICU for following problems: Acute on chronic anemia: -Due to blood loss secondary to hematuria. -Patient received 2 blood transfusions total. -Patient's hemoglobin in December 2016 was 10.3 and he presented with hemoglobin of 8.3 yesterday. Considering patient's EKG changes, we'll need to keep his hemoglobin above 8.5 -We will monitor him for fluid overload. -Follow-up H&H for drop in hemoglobin. -Today's hemoglobin is 9.3. Gross hematuria:(improving) -Patient had extensive workup but without finding any etiology. -Could have glomerulopathy that's causing his hematuria. -Continue Solo's catheter with continuous bladder irrigation to prevent obstruction from clots. -Avoid any medications that can increase his hematuria like aspirin and heparin. -Neurology recommended to start him on finasteride to shrunken the size of prostate. -Follow up cytology and urine culture. -Follow up urology recommendations. EKG changes: -Patient had EKG changes, ST segment and T wave inversion in V2 to V6. -His troponin at remained negative. 0.01, 0.01 -Cardiology recommended cardiac cath after stabilization to rule out ischemia. -Echo showed ejection fraction 60%. -Not a candidate for anticoagulation due to hematuria. Acute hypoxic respiratory failure:(IMPROVING) -Patient has bibasilar opacities possibly due to atelectasis as he remained afebrile and WBC count remained within normal limits. Patient also having emphysema and his morbid obesity can cause this hypoxic respiratory failure. -Patient is on 3 L of oxygen and maintaining saturation 95%. -Incentive spirometer -Watch for signs of fluid overload/pulmonary edema -We will try to wean off his oxygen as tolerated keeping his oxygen saturation above 92%. Constipation: -Daily MiraLAX and bisacodyl History of chronic kidney disease: -His last creatinine was in December 2016 that was 1.7 GFR was 40. -Stage III kidney disease -On presentation his creatinine was 1.5 and today it's 1.4 -Today his creatinine level is 1.2 -Avoid nephrotoxins medications History of hypertension and hyperlipidemia: -Continue Lipitor -Holding his atenolol and lisinopril. If he remained hemodynamically stable we' ll restarted. History of diabetes: -Accu-Cheks, his fasting blood sugar level is 188 this morning. -Insulin NovoLog according to sliding scale -Hold metformin while patient in the hospital. Due to prophylaxis: Mechanical only CODE STATUS: Full code Problem List: 1. Anemia 2. Hematuria 3. Acute respiratory failure with hypoxia Pain Ratin Pain Location: NONE Pain Plan: PAIN PATHWAY Tomorrow's Labs & Rationales: CBC/ICU BUNDLE Plan DVT/Prophylaxis: mechanical
[2018-07-19 08:00] VITALS: BP 130/70
--- NOTE | 2018-07-19 10:52 | PN- CRCU ---
Subjective HPI/Critical Care Issues: No overnight events. Patient remained afebrile. Seen and examined this morning. Patient denied chest pain, palpitation, nausea, vomiting, chills, fever and dysuria. Patient reported having constipation and not able to have bowel movement for last 3 days. His hemoglobin is stable. COntinues to have sig hematuria with cbi Objective Current Medications: Current Medications Sig/Dolores Start time Last Medication Dose Route Stop Time Status Admin Atorvastatin Calcium 20 MG 1700 07/16 1700 AC 07/18 PO 1631 Bisacodyl 5 MG DAILY 07/19 0900 AC 07/19 PO 0829 Calcium Carbonate 500 MG ONCE ONE 07/18 1630 DC 07/18 PO 07/18 1631 1631 Calcium Carbonate 500 MG ONCE ONE 07/18 1230 DC 07/18 PO 07/18 1231 1227 Calcium Carbonate 0 .STK-MED ONE 07/18 1227 DC PO Finasteride 5 MG DAILY 07/17 1145 AC 07/19 PO 0829 Insulin Aspart 0 TIDAC 07/16 0800 AC 07/19 SC 0749 Magnesium Oxide 400 MG ONE ONE 07/19 0730 DC 07/19 PO 07/19 0731 0829 Omeprazole 40 MG DAILY AC 07/18 1622 AC 07/19 PO 0651 Ondansetron HCl 4 MG ONCE ONE 07/18 1830 DC 07/18 IV 07/18 1831 1836 Ondansetron HCl 0 .STK-MED ONE 07/18 1824 DC .ROUTE Oxycodone HCl 40 MG BID 07/15 2254 AC 07/19 PO 0829 Oxycodone/ 2 TAB Q12P PRN 07/16 1041 AC 07/18 Acetaminophen PO 1222 Polyethylene Glycol 17 GM DAILY 07/19 0900 AC 07/19 PO 0829 Senna 187 MG AT BEDTIME 07/19 2100 CAN PO Vital Signs & I&O Last 24 Hrs of Vitals and I&O: Vital Signs Date Time Temp Pulse Resp B/P B/P Pulse O2 O2 Flow FiO2 Mean Ox Delivery Rate 07/19 0800 97.5 98 22 130/70 92 Nasal 3.0L Cannula 07/19 0800 93 Nasal 3.0L Cannula 07/19 0400 95 Nasal 2.0L Cannula 07/19 0000 91 Nasal 3.0L Cannula 07/19 0000 97.5 91 18 130/60 91 Nasal 3.0L Cannula 08/20 2000 93 Nasal 3.0L Cannula 07/18 1953 Nasal 3.0L Cannula 07/18 1600 97.9 82 22 120/64 93 Nasal 4.0L Cannula 07/18 1200 92 Nasal 4.0L Cannula Intake & Output 07/19 1600 07/19 0800 07/19 0000 Intake Total 100 240 Output Total 600 500 Balance -500 -260 Intake, Oral 100 240 Output, Urine 600 500 Laboratory Tests 07/19 07/18 07/18 0350 2130 1830 Chemistry Sodium (137 - 145 mmol/L) 134 L Potassium (3.5 - 5.1 mmol/L) 5.2 H Chloride (98 - 107 mmol/L) 103 Carbon Dioxide (22 - 30 mmol/L) 24 Anion Gap (5 - 16) 8 BUN (9 - 20 mg/dL) 21 H Creatinine (0.7 - 1.2 mg/dL) 1.2 Estimated GFR (>60 ml/min) 60 Glucose (65 - 99 mg/dL) 170 H Calcium (8.4 - 10.2 mg/dL) 8.9 Phosphorus (2.5 - 4.5 mg/dL) 4.3 Magnesium (1.6 - 2.3 mg/dL) 1.9 Total Bilirubin (0.2 - 1.3 mg/dL) 0.4 AST (17 - 59 U/L) 16 L ALT (21 - 72 U/L) 26 Troponin I (<0.11 ng/ml) < 0.01 Albumin (3.5 - 5.0 g/dL) 3.1 L Coagulation APTT Cancelled Hematology CBC w Diff NO MAN DIFF REQ WBC (4.8 - 10.8 /CUMM) 11.7 H RBC (4.70 - 6.10 /CUMM) 3.05 L Hgb (14.0 - 18.0 G/DL) 9.3 L Hct (42 - 52 %) 28.7 L MCV (80.0 - 94.0 FL) 94.2 H MCH (27.0 - 31.0 PG) 30.5 MCHC (33.0 - 37.0 G/DL) 32.4 L RDW (11.5 - 14.5 %) 15.1 H Plt Count (130 - 400 /CUMM) 226 MPV (7.4 - 10.4 FL) 7.1 L Gran % (42.2 - 75.2 %) 84.8 H Lymphocytes % (20.5 - 51.1 %) 8.4 L Monocytes % (1.7 - 9.3 %) 5.8 Eosinophils % (0 - 5 %) 1.0 Basophils % (0.0 - 2.0 %) 0 Absolute Granulocytes (1.4 - 6.5 /CUMM) 9.9 H Absolute Lymphocytes (1.2 - 3.4 /CUMM) 1.0 L Absolute Monocytes (0.10 - 0.60 /CUMM) 0.7 H Absolute Eosinophils (0.0 - 0.7 /CUMM) 0.1 Absolute Basophils (0.0 - 0.2 /CUMM) 0 07/18 07/17 0402 1831 Chemistry Sodium (137 - 145 mmol/L) 137 Potassium (3.5 - 5.1 mmol/L) 4.4 Chloride (98 - 107 mmol/L) 106 Carbon Dioxide (22 - 30 mmol/L) 23 Anion Gap (5 - 16) 8 BUN (9 - 20 mg/dL) 20 Creatinine (0.7 - 1.2 mg/dL) 1.4 H Estimated GFR (>60 ml/min) 50 L Glucose (65 - 99 mg/dL) 174 H Calcium (8.4 - 10.2 mg/dL) 8.3 L Phosphorus (2.5 - 4.5 mg/dL) 3.9 Magnesium (1.6 - 2.3 mg/dL) 1.8 Total Bilirubin (0.2 - 1.3 mg/dL) 0.4 AST (17 - 59 U/L) 14 L ALT (21 - 72 U/L) 25 Troponin I (<0.11 ng/ml) < 0.01 Albumin (3.5 - 5.0 g/dL) 3.2 L Hematology CBC w Diff NO MAN DIFF REQ WBC (4.8 - 10.8 /CUMM) 10.2 RBC (4.70 - 6.10 /CUMM) 3.13 L Hgb (14.0 - 18.0 G/DL) 9.6 L Hct (42 - 52 %) 29.6 L MCV (80.0 - 94.0 FL) 94.7 H MCH (27.0 - 31.0 PG) 30.7 MCHC (33.0 - 37.0 G/DL) 32.4 L RDW (11.5 - 14.5 %) 16.1 H Plt Count (130 - 400 /CUMM) 229 MPV (7.4 - 10.4 FL) 7.4 Gran % (42.2 - 75.2 %) 79.3 H Lymphocytes % (20.5 - 51.1 %) 10.4 L Monocytes % (1.7 - 9.3 %) 7.5 Eosinophils % (0 - 5 %) 2.6 Basophils % (0.0 - 2.0 %) 0.2 Absolute Granulocytes (1.4 - 6.5 /CUMM) 8.1 H Absolute Lymphocytes (1.2 - 3.4 /CUMM) 1.1 L Absolute Monocytes (0.10 - 0.60 /CUMM) 0.8 H Absolute Eosinophils (0.0 - 0.7 /CUMM) 0.3 Absolute Basophils (0.0 - 0.2 /CUMM) 0 Impression/Plan Impression/Plan Impression/Plan: ECHO CONCLUSIONS 1. Normal EF of 60% with moderate posterior wall hypokinesis and impaired LV relaxation. 2. Moderate left atrial enlargement. 3. Trace mitral regurgitation. 4. Moderate tricuspid regurgitation. 5. Mild pulmonic regurgitation. 6. Trace aotic insufficiency. 7. Moderate to severe pulmonary hypertension. General Appearance: well developed/nourished, no apparent distress, alert, awake Head: atraumatic Neck: normal inspection, supple Respiratory: normal breath sounds, chest non-tender Cardiovascular: regular rate/rhythm Gastrointestinal: soft, non-tender Extremities: B/L pedal edema grade 1 with chronic venous changes., b/l statis dematitis Neurologic/Psych: awake, alert, oriented x 3 IMPRESSION This is a gentleman who usually gets his care at [facility] with recurrent hematuria with prior workup apparently negative ongoing on and off for one yr, COPD hypertension diabetes, came into the emergency room because he had significant hematuria. Subsequently was noted to have diffuse EKG changes in the lateral leads. * Significant hematuria and blood loss anemia now s/p transfusions with ongoing hematuria with suprapubic discomfort / now on CBI / urology onboard and they have recommended proscar * Significant EKG changes, no significant pain patient has diabetes however. So far troponin is not significantly elevated/ echo no wall motion abnormality with diastolic disease * Improving Acute kidney injury with stage 2 chronic renal failure * Diabetes, hypertension hyperlipidemia * Significant emphysema with ILD noted in the CAT scan not actively wheezing, with morbid obesity with bibailar atx with hypoxia now requiring oxygen RECOMMENDATION Continue continuous bladder irrigation per urology Transfuse if hemoglobin drops less than 8.5 Watch for pulmonary edema Replace electrolytes appropriately Patient is not a candidate for anticoagulation due to gross hematuria Await cultures hold further antibiotics for now urine for cytology PRN nebulizer if he is wheezing Will follow closely To tele
[2018-07-19 16:31] VITALS: BP 132/60
[2018-07-19 23:06] VITALS: BP 132/58
[2018-07-20 07:32] VITALS: BP 160/60
--- NOTE | 2018-07-20 08:01 | PN- Housestaff ---
JeffersonHyacinth 07/20/18 0801: Subjective Follow-up For: Gross hematuria Subjective: Overnight patient's heart rate was ranging between 90-115. Patient had increased oxygen requirement is currently saturating at 96% on 5 L of oxygen patient is complaining of nausea and lightheadedness. Review of Systems Constitutional: Denies: chills, diaphoresis, fever. Cardiovascular: Denies: chest pain, palpitations. Respiratory: Denies: cough, short of breath. Gastrointestinal: Denies: abdominal pain, bloody stool. Objective Last 24 Hrs of Vital Signs/I&O Vital Signs Date Time Temp Pulse Resp B/P B/P Pulse O2 O2 Flow FiO2 Mean Ox Delivery Rate 07/20 1400 98.2 84 18 134/62 92 Nasal Cannula 07/20 0800 97 Nasal 5.0L Cannula 07/20 0732 98.4 118 18 160/60 92 Nasal 5.0L Cannula 07/20 0000 96 Nasal 3.0L Cannula 07/19 2306 98.5 90 18 132/58 95 Nasal 3.0L Cannula Intake & Output 07/20 1600 07/20 0800 07/20 0000 Intake Total 400 120 804 Output Total 900 900 Balance 400 -780 -96 Intake, Oral 400 120 804 Number 0 Bowel Movements Output, Urine 900 900 Physical Exam General Appearance: Alert, Oriented X3, Cooperative HEENT: Atraumatic, PERRLA, EOMI Cardiovascular: Regular Rate, Normal S1, Normal S2 Lungs: Clear to Auscultation, Normal Air Movement Abdomen: Normal Bowel Sounds, Soft, No Tenderness Extremities: No Cyanosis, No Edema, Normal Pulses Other Physical Findings: CBI in place, blood tinged urine present Assessment/Plan Assessment: 73 YO M with PMH of HTN, DM, emphysema, hematuria for over 3 years, had an extensive workup last year including cystoscopy, bladder biopsy without any positive findings presented to the ED with chief complaint of difficulty to void , started 1 week ago and was getting progressively worsen until yesterday when he was not able to pass urine. Incidentally, he was also found to have new EKG changes upon arrival to the ER including ST segment depressions involving leads V2 to V6. Subsequently, Dr. Estevez was informed who recommended ICU admission and transfusion for further monitoring. Patient received 1 transfusion in ED. patient received one dose of ceftriaxone in ED, considering WBC in urine and nitites. #Acute on chronic anemia: -Due to blood loss secondary to hematuria. -Patient is status post 2 PRBC transfusions -keep his hemoglobin above 8.5 -Follow H&H daily #Gross hematuria:Patient had extensive workup but without finding any etiology -Continue CBI until urine is clear, can perform CBI clamping trial at that time -Avoid aspirin and heparin. -Continue finasteride 5 mg daily -Contacted Dr. Steward office and Dr. Almazan today, waiting urology input #Leukocytosis: Source of elevated white blood cell could be pulmonary as patient has is requiring increased oxygen use, versus urologic. On presentation patient had UA positive for nitrites, bacteria, WBC. Patient has remained afebrile with increasing white blood cell today is 15.6 -repeat CXR -repeat UA and Urine culture -continue to monitor patient #EKG changes: -Patient had EKG changes, ST segment and T wave inversion in V2 to V6. -Troponins negative 5 -Cardiology recommended cardiac cath after stabilization to rule out ischemia. -Echo showed ejection fraction 60%. -Not a candidate for anticoagulation at this time due to hematuria. Acute hypoxic respiratory failure:Patient has bibasilar opacities possibly due to atelectasis as he remained afebrile and WBC count remained within normal limits. Patient has history of emphysema and his morbid obesity are also contributing factors. -Is increased need for oxygenation, today patient is a 5.0 L of oxygen and saturating at 96% -Incentive spirometer -We will try to wean off his oxygen as tolerated keeping his oxygen saturation above 92%. Constipation: -Daily MiraLAX and bisacodyl History of chronic kidney disease stage III:On presentation his creatinine was 1.5, which may be close and new baseline -Today his creatinine level is 1.4 History of hypertension and hyperlipidemia: -Continue Lipitor -Holding his atenolol and lisinopril. History of diabetes: -Accu-Cheks, his fasting blood sugar level is 188 this morning. -Insulin NovoLog according to sliding scale -Hold metformin while patient in the hospital. DVTprophylaxis: Mechanical only CODE STATUS: Full code Problem List: 1. Acute respiratory failure with hypoxia Pain Ratin Pain Location: n/a Pain Goal: Remain pain free Pain Plan: oxycodone Tomorrow's Labs & Rationales: cbc, bep Yony LEGER,Ildefonso 07/20/18 1441: Attending MD Review Statement Attending Statement Attending MD Statement: examined this patient, discuss w/resident/PA/TAB CUTTER, agreed w/resident/PA/TAB CUTTER, reviewed EMR data (avail), discussed with nursing, discussed with case mgmt, amended to note Attending Assessment/Plan: Patient seen and examined. Transferred out of the ICU yesterday. Chart reviewed. Case discussed with the retail presentation specialist Wyatt Lopez MD. When evaluated this morning patient was lying in bed complaining of lower abdominal and groin discomfort. He appeared very fidgety in bed. Solo catheter was in place draining bloody urine. Outflow from the Solo catheter had decreased. On examination abdomen is obese soft nontender in the lower abdomen. Solo catheter was flushed with small amounts of blood clots and increased urinary flow. Symptoms subsequently subsided. Despite his ongoing hematuria patient is fortunately hemodynamically stable. Hemoglobin level is stable status post transfusion of 2 units of PRBC during this hospitalization. He has been evaluated by the urology service and he has no recommendations for any urologic intervention at present. He has been started on Proscar. Recommendations: -Continue continuous bladder irrigation. Continue Proscar. -Follow-up with urology service if hematuria persists. -Patient likely has underlying ischemia. He will require further ischemic workup possibly with a cardiac catheterization once his hematuria resolves. -Mobilize patient as tolerated. -Blood pressure appears to be trending upwards. Beta-augustine therapy was initially on hold due to his normal state insisted despite his history of hypertension possibly due to volume loss. Resume his atenolol 25 mg orally daily. -Patient continues to be hypoxic requiring increased oxygen supplementation today. He does have evidence of severe emphysema. No evidence of pneumonia per evaluation by the pulmonology service. Continue to monitor patient off antibiotic therapy for now. Continue bronchodilator therapy. Follow-up with the pulmonology service regarding starting patient on long-acting muscarinic agent as well as inhaled corticosteroid/long-acting beta agonist combination. Continue short acting bronchodilators for now. -Repeat CBCs in a.m. to monitor his leukocytosis. Continue to monitor off antibiotic therapy for now.
[2018-07-20 08:18] LABS: ABSOLUTE BASOPHIL COUNT 0 /CUMM (0.0-0.2); ABSOLUTE EOSINOPHIL COUNT 0.1 /CUMM (0.0-0.7); ABSOLUTE GRANULOCYTE CT 13.8 /CUMM (1.4-6.5); ABSOLUTE LYMPH COUNT 0.4 /CUMM (1.2-3.4); ABSOLUTE MONOCYTE COUNT 1.2 /CUMM (0.10-0.60); BASOPHIL % 0.1 % (0.0-2.0); EOSINOPHIL % 0.5 % (0-5); HEMATOCRIT 28.7 % (42-52); MEAN CORPUSCULAR HGB 30.3 PG (27.0-31.0); MEAN CORPUSCULAR HGB CONC 32.5 G/DL (33.0-37.0); MEAN CORPUSCULAR VOLUME 93.3 FL (80.0-94.0); MEAN PLATELET VOLUME 7.7 FL (7.4-10.4); PLATELET COUNT 235 /CUMM (130-400); RBC DISTRIBUTION WIDTH 14.7 % (11.5-14.5); RED BLOOD CELL CT 3.08 /CUMM (4.70-6.10); WHITE BLOOD CELL COUNT 15.6 /CUMM (4.8-10.8)
[2018-07-20 09:00] LABS: GRANULOCYTE % 88.6 % (42.2-75.2)
--- NOTE | 2018-07-20 13:49 | PN- Pulmonary ---
Subjective HPI/Critical Care Issues: Mild hypoxia worse than yesterday Ongoing hematuria H and H stable Objective Current Medications: Current Medications Sig/Dolores Start time Last Medication Dose Route Stop Time Status Admin Atorvastatin Calcium 20 MG 1700 07/16 1700 AC 07/19 PO 1658 Bisacodyl 5 MG DAILY 07/19 0900 AC 07/20 PO 1111 Calcium Carbonate 500 MG DAILY 07/19 1049 AC 07/19 PO 1218 Finasteride 5 MG DAILY 07/17 1145 AC 07/20 PO 1111 Insulin Aspart 0 TIDAC 07/16 0800 AC 07/19 SC 1218 Omeprazole 40 MG DAILY AC 07/18 1622 AC 07/20 PO 0603 Oxycodone HCl 40 MG BID 07/15 2254 AC 07/19 PO 2047 Oxycodone/ 2 TAB Q12P PRN 07/16 1041 AC 07/20 Acetaminophen PO 1111 Polyethylene Glycol 17 GM DAILY 07/19 0900 AC 07/20 PO 1111 Vital Signs & I&O Last 24 Hrs of Vitals and I&O: Vital Signs Date Time Temp Pulse Resp B/P B/P Pulse O2 O2 Flow FiO2 Mean Ox Delivery Rate 07/20 0732 98.4 118 18 160/60 92 Nasal 5.0L Cannula 07/20 0000 96 Nasal 3.0L Cannula 07/19 2306 98.5 90 18 132/58 95 Nasal 3.0L Cannula 07/19 1631 97.9 94 18 132/60 91 Nasal Cannula 07/19 1600 Nasal 3.0L Cannula Intake & Output 07/20 1600 07/20 0800 07/20 0000 Intake Total 120 804 Output Total 900 900 Balance -780 -96 Intake, Oral 120 804 Output, Urine 900 900 Laboratory Tests 07/20 07/19 0647 0350 Chemistry Sodium (137 - 145 mmol/L) 134 L 134 L Potassium (3.5 - 5.1 mmol/L) 4.9 5.2 H Chloride (98 - 107 mmol/L) 100 103 Carbon Dioxide (22 - 30 mmol/L) 24 24 Anion Gap (5 - 16) 10 8 BUN (9 - 20 mg/dL) 25 H 21 H Creatinine (0.7 - 1.2 mg/dL) 1.4 H 1.2 Estimated GFR (>60 ml/min) 50 L 60 BUN/Creatinine Ratio (7 - 25 %) 17.9 Glucose (65 - 99 mg/dL) 170 H Calcium (8.4 - 10.2 mg/dL) 8.9 Phosphorus (2.5 - 4.5 mg/dL) 4.3 Magnesium (1.6 - 2.3 mg/dL) 1.9 Total Bilirubin (0.2 - 1.3 mg/dL) 0.4 AST (17 - 59 U/L) 16 L ALT (21 - 72 U/L) 26 Albumin (3.5 - 5.0 g/dL) 3.1 L Hematology CBC w Diff NO MAN DIFF REQ NO MAN DIFF REQ WBC (4.8 - 10.8 /CUMM) 15.6 H 11.7 H RBC (4.70 - 6.10 /CUMM) 3.08 L 3.05 L Hgb (14.0 - 18.0 G/DL) 9.3 L 9.3 L Hct (42 - 52 %) 28.7 L 28.7 L MCV (80.0 - 94.0 FL) 93.3 94.2 H MCH (27.0 - 31.0 PG) 30.3 30.5 MCHC (33.0 - 37.0 G/DL) 32.5 L 32.4 L RDW (11.5 - 14.5 %) 14.7 H 15.1 H Plt Count (130 - 400 /CUMM) 235 226 MPV (7.4 - 10.4 FL) 7.7 7.1 L Gran % (42.2 - 75.2 %) 88.6 H 84.8 H Lymphocytes % (20.5 - 51.1 %) 2.9 L 8.4 L Monocytes % (1.7 - 9.3 %) 7.9 5.8 Eosinophils % (0 - 5 %) 0.5 1.0 Basophils % (0.0 - 2.0 %) 0.1 0 Absolute Granulocytes (1.4 - 6.5 /CUMM) 13.8 H 9.9 H Absolute Lymphocytes (1.2 - 3.4 /CUMM) 0.4 L 1.0 L Absolute Monocytes (0.10 - 0.60 /CUMM) 1.2 H 0.7 H Absolute Eosinophils (0.0 - 0.7 /CUMM) 0.1 0.1 Absolute Basophils (0.0 - 0.2 /CUMM) 0 0 08/20 08/20 2130 1830 Chemistry Troponin I (<0.11 ng/ml) < 0.01 Coagulation APTT Cancelled Microbiology Date/Time Procedure - Status Source Growth 07/20 910 Respiratory Culture - COLB LOWER RESP 07/20 910 Gram Stain - COLB LOWER RESP Impression/Plan Impression/Plan Impression/Plan: ECHO CONCLUSIONS 1. Normal EF of 60% with moderate posterior wall hypokinesis and impaired LV relaxation. 2. Moderate left atrial enlargement. 3. Trace mitral regurgitation. 4. Moderate tricuspid regurgitation. 5. Mild pulmonic regurgitation. 6. Trace aotic insufficiency. 7. Moderate to severe pulmonary hypertension. General Appearance: well developed/nourished, no apparent distress, alert, awake Head: atraumatic Neck: normal inspection, supple Respiratory: normal breath sounds, chest non-tender Cardiovascular: regular rate/rhythm Gastrointestinal: soft, non-tender Extremities: B/L pedal edema grade 1 with chronic venous changes., b/l statis dematitis Neurologic/Psych: awake, alert, oriented x 3 IMPRESSION This is a gentleman who usually gets his care at [facility] with recurrent hematuria with prior workup apparently negative ongoing on and off for one yr, COPD hypertension diabetes, came into the emergency room because he had significant hematuria. Subsequently was noted to have diffuse EKG changes in the lateral leads. * Significant emphysema with basilar ILD noted in the CAT scan not actively wheezing, with morbid obesity with bibailar atx with hypoxia now requiring oxygen * Significant hematuria and blood loss anemia now s/p transfusions with ongoing hematuria with suprapubic discomfort / now on CBI / urology onboard and they have recommended proscar * Significant EKG changes, no significant pain patient has diabetes however. So far troponin is not significantly elevated/ echo no wall motion abnormality with diastolic disease * CKD tage 2 chronic renal failure * Diabetes, hypertension hyperlipidemia * RECOMMENDATION Cxr Sputum culture Keep hob Nebs with duoneb bid atc Incentive spirometry Continue continuous bladder irrigation per urology Patient is not a candidate for anticoagulation due to gross hematuria Await urine cytology Now on tele team
[2018-07-20 14:00] VITALS: BP 134/62
[2018-07-20 21:09] VITALS: BP 126/56
[2018-07-21 06:36] VITALS: BP 132/56
--- NOTE | 2018-07-21 07:22 | PN- Housestaff ---
Michael Nance 07/21/18 0722: Subjective Follow-up For: gross hematuria Subjective: Pt seen and examined today. No telemetry events. He has no acute complains. Does feel pressure in the lower abdominal area. He is on CBI, blood-tinged liquid noted. States feeling sharp pain whenever he feels a clot. Sat is 92% on 3L. Family meeting was had and updated on his condition and plan. Review of Systems Constitutional: Reports: see HPI. EENTM: Reports: no symptoms. Cardiovascular: Reports: no symptoms. Respiratory: Reports: no symptoms. Gastrointestinal: Reports: abdominal pain. Genitourinary: Reports: see HPI. Musculoskeletal: Reports: no symptoms. Objective Last 24 Hrs of Vital Signs/I&O Vital Signs Date Time Temp Pulse Resp B/P B/P Pulse O2 O2 Flow FiO2 Mean Ox Delivery Rate 07/21 0636 97.8 86 18 132/56 92 Nasal Cannula 07/21 0000 Nasal 3.0L Cannula 07/20 2109 98.3 85 18 126/56 95 Nasal Cannula 07/20 1600 Nasal 4.0L Cannula 07/20 1400 98.2 84 18 134/62 92 Nasal Cannula Intake & Output 07/21 1600 07/21 0800 07/21 0000 Intake Total 200 240 Output Total 2300 1860 Balance -2100 -1620 Intake, Oral 200 240 Output, Urine 2300 1860 Physical Exam General Appearance: Alert, Oriented X3, Cooperative, No Acute Distress HEENT: Atraumatic, EOMI Neck: Supple Cardiovascular: Regular Rate, Normal S1, Normal S2 Lungs: Clear to Auscultation, Normal Air Movement Abdomen: Normal Bowel Sounds, Soft, slight tenderness on deep palpation on lower abdominal area Neurological: Normal Speech Extremities: No Clubbing, No Cyanosis, No Edema Current Medications: Current Medications Sig/Dolores Start time Last Medication Dose Route Stop Time Status Admin Albuterol Sulfate 3 ML Q6 PRN 07/21 0830 AC INH Atenolol 25 MG DAILY 07/21 0800 AC PO Atorvastatin Calcium 20 MG 1700 07/16 1700 AC 07/20 PO 1852 Bisacodyl 5 MG DAILY 07/19 0900 AC 07/20 PO 1111 Budesonide/ 2 PUF BID 07/21 09 AC Formoterol Fumarate INH Calcium Carbonate 500 MG DAILY 07/19 1049 AC 07/19 PO 1218 Finasteride 5 MG DAILY 07/17 1145 AC 07/20 PO 1111 Insulin Aspart 0 TIDAC 07/16 0800 AC 07/21 SC 0813 Omeprazole 40 MG DAILY AC 07/18 1622 AC 07/21 PO 0655 Ondansetron HCl 4 MG ONCE ONE 07/21 0115 DC 07/21 PO 07/21 0116 0121 Ondansetron HCl 0 .STK-MED ONE 07/21 0112 DC PO Oxycodone HCl 40 MG BID 07/15 2254 AC 07/21 PO 0813 Oxycodone/ 2 TAB Q12P PRN 07/16 1041 AC 07/20 Acetaminophen PO 1111 Polyethylene Glycol 17 GM DAILY 07/19 0900 AC 07/20 PO 1111 Last 24 Hrs of Lab/Shaheed Results Last 24 Hrs of Labs/Mics: Laboratory Tests 07/21/18 0636: Anion Gap 9, Estimated GFR 60, BUN/Creatinine Ratio 21.7, CBC w Diff NO MAN DIFF REQ, RBC 2.82 L, MCV 92.1, MCH 30.0, MCHC 32.5 L, RDW 14.7 H, MPV 8.1, Gran % 87.5 H, Lymphocytes % 5.0 L, Monocytes % 6.3, Eosinophils % 1.1, Basophils % 0.1, Absolute Granulocytes 9.5 H, Absolute Lymphocytes 0.5 L, Absolute Monocytes 0.7 H, Absolute Eosinophils 0.1, Absolute Basophils 0 07/20/18 1725: Urine Color STRAW, Urine Clarity HAZY H, Urine pH 6.5, Ur Specific [place] 1.010, Urine Protein NEG, Urine Ketones NEG, Urine Nitrite NEG, Urine Bilirubin NEG, Urine Urobilinogen 0.2, Ur Leukocyte Esterase NEG, Ur Microscopic SEDIMENT EXAMINED, Urine RBC >75 H, Urine WBC RARE, Ur Epithelial Cells RARE, Urine Hemoglobin MOD H, Urine Glucose NEG Microbiology 07/20 1725 URINE ROUT: Urine Culture - RECD Assessment/Plan Assessment: 73 y/o M with PMH of HTN, DM, emphysema, hematuria for over 3 years, had an extensive workup last year including cystoscopy, bladder biopsy without any positive findings who presented to the ED c/o o difficulty urinating that started 1 week ago and got progressively worse until when he was not able to pass urine. Of note, during his ED stay, EKG showed ST segment depressions involving leads V2 to V6. Subsequently, Dr. Estevez was informed who recommended ICU admission and transfusion for further monitoring. Patient received 1U PRBC. He also received one dose of ceftriaxone in ED, considering WBC in urine and nitites. ASSESSMENT #[id number] anemia 2/2 chronic hematuria, s/p 2U PRBCs. #Chronic gross hematuria, etiology unclear #Leukocytosis #EKG Changes #Acute hypoxic respiratory failure, on 3L NC #Constipation #CKD Stage III #H/o HTN/HLD #H/o diabetes #Acute on chronic anemia s/p 2U PRBC. H/H today with a drop from 9.3 to 8.4. This is most likely 2/2 ongoing chronic hematuria. -Keep his hemoglobin above 8.5 -Follow H&H daily #Gross hematuria:Prior extensive workup did not pinpoint clear etiology. He is on CBI. Perform CBI clamping trial. -Continue CBI -Avoid aspirin and heparin. -Continue finasteride 5 mg daily -Urology to see the patient today. Will follow up their recommendations. #Leukocytosis: WBC down to 10.9 from 15.6, off abx. Pulmonary vs Urinary in etiology; he is requiring oxygen use to mantain saturation. UA did also show positive nitritis, bacteria and WBC. Afebrile so far in this admission. CXR showed improved bibasilar opacities from prior study. Repeat UA on 07/20 does not show nitrites or WBC but does note bacteria. -continue to monitor trend #EKG changes: -Patient had EKG changes, ST segment and T wave inversion in V2 to V with negative trops x5, echo showed EF of 60%. -Cardiology recommended cardiac cath after stabilization to rule out ischemia. -Not a candidate for anticoagulation at this time due to hematuria. Acute hypoxic respiratory failure: Patient has bibasilar opacities possibly due to atelectasis as he remained afebrile though now improving as per latest CXR. Patient has history of emphysema and his morbid obesity are also contributing factors. Will get chest CT to evaluate for acute pulm pathology. -pt still on oxygen, though now at 3.0 L from 5.0. -F/u chest ct -Incentive spirometry -Wean off oxygen as tolerated keeping his oxygen saturation above 92%. Constipation: -Daily MiraLAX and bisacodyl History of chronic kidney disease stage III:On admission, Cr was 1.5, which may be close and new baseline. -Today his creatinine level is 1.2 History of hypertension and hyperlipidemia: -Continue Lipitor -Back on atenolol History of diabetes: -Accu-Cheks, his fasting blood sugar level is 260 this morning. -Insulin NovoLog according to sliding scale -Hold metformin while patient in the hospital. DVTprophylaxis: Mechanical only CODE STATUS: Full code Problem List: 1. Hematuria 2. Anemia Pain Ratin Pain Location: lower abdominal area Pain Goal: Pain 4 or less Pain Plan: has percocet for severe pain Tomorrow's Labs & Rationales: . Ildefonso Bhakta MD 07/21/18 1154: Attending MD Review Statement Attending Statement Attending MD Statement: examined this patient, discuss w/resident/PA/PHYSICAL SCIENCE TECHNICIAN, agreed w/resident/PA/PHYSICAL SCIENCE TECHNICIAN, discussed with family, reviewed EMR data (avail), discussed with nursing, discussed with case mgmt, amended to note Attending Assessment/Plan: Patient seen and examined. Resting comfortably and not in acute distress. Family present at the bedside. Reports some nausea yesterday. Denies any vomiting. Denies any abdominal pain or cramping. Denies any groin pain. Solo catheter remains in place continues to drain bloody urine with bladder irrigation. Laboratory data today shows slight drop in his hemoglobin level. He remains hemodynamically stable. He is in sinus rhythm. Problems: 1. Acute hypoxic respiratory failure 2. Gross hematuria secondary to enlarged prostate with bladder outlet obstruction. 3. Acute on chronic anemia; secondary to blood loss 4. Persistent leukocytosis; improving 5. Ischemic changes on EKG. 6. Severe COPD. 7. Diabetes mellitus Plan: -Patient's oxygen requirement is improving. He is down from 5 L to 3 L this morning. Repeat chest x-ray today shows interval decrease in bibasilar opacities however the right lateral chest wall opacity remains unchanged. Please follow-up with the pulmonology service regarding need for chest CT scan to further evaluate. -Hematuria persists. Hemoglobin level appears to be trending downwards. Repeat CBCs in a.m. Transfuse to keep hemoglobin level greater than 8. No surgical intervention planned by the neurology service at present. -Following stabilization we will follow-up with the cardiology service regarding need for further ischemic workup. -Patient has been started on bronchodilator therapy and Symbicort. Follow-up with the pulmonology service regarding addition of Spiriva. -Continue sliding scale coverage. Fingersticks 200s.
[2018-07-21 08:24] LABS: ABSOLUTE BASOPHIL COUNT 0 /CUMM (0.0-0.2); ABSOLUTE EOSINOPHIL COUNT 0.1 /CUMM (0.0-0.7); ABSOLUTE GRANULOCYTE CT 9.5 /CUMM (1.4-6.5); ABSOLUTE LYMPH COUNT 0.5 /CUMM (1.2-3.4); ABSOLUTE MONOCYTE COUNT 0.7 /CUMM (0.10-0.60); BASOPHIL % 0.1 % (0.0-2.0); EOSINOPHIL % 1.1 % (0-5); MEAN CORPUSCULAR HGB CONC 32.5 G/DL (33.0-37.0); MEAN CORPUSCULAR VOLUME 92.1 FL (80.0-94.0); MEAN PLATELET VOLUME 8.1 FL (7.4-10.4); PLATELET COUNT 221 /CUMM (130-400); RBC DISTRIBUTION WIDTH 14.7 % (11.5-14.5); RED BLOOD CELL CT 2.82 /CUMM (4.70-6.10); WHITE BLOOD CELL COUNT 10.9 /CUMM (4.8-10.8)
--- NOTE | 2018-07-21 08:50 | RADIOLOGY REPORT ---
EXAMINATION: XR PORTABLE CHEST CLINICAL INFORMATION: Worsening shortness of breath. COMPARISON: Chest x-ray 07/16/2018. TECHNIQUE: Portable frontal 85 degrees semiupright view of the chest was obtained. FINDINGS: The lung blanchard are moderately well-expanded bilaterally. There is been interval decrease in the bibasilar airspace opacities compared to the prior study. The well-defined opacity laterally in the right chest is unchanged, which may be consistent with pleural thickening. There are associated healed rib fractures. The cardiac silhouette is at the upper limits of normal in size. The mediastinum appears normal. There are no pleural effusions. There are no acute osseous findings. IMPRESSION: 1. There has been interval decrease in the bibasilar airspace opacities compared to the prior study. 2. The right lateral chest opacity with adjacent healed rib fractures is unchanged. As previously suggest, this could be further evaluated with CT scan of the chest.
[2018-07-21 09:41] LABS: GRANULOCYTE % 87.5 % (42.2-75.2)
--- NOTE | 2018-07-21 13:19 | PN- Pulmonary ---
Subjective HPI/Critical Care Issues: Pt seen and examined today. No telemetry events. He has no acute complains. Does feel pressure in the lower abdominal area. He is on CBI, blood-tinged liquid noted. States feeling sharp pain whenever he feels a clot. Sat is 92% on 3L. Objective Current Medications: Current Medications Sig/Dolores Start time Last Medication Dose Route Stop Time Status Admin Albuterol Sulfate 3 ML Q6 PRN 07/21 0830 AC INH Atenolol 25 MG DAILY 07/21 0800 AC 07/21 PO 1152 Atorvastatin Calcium 20 MG 1700 07/16 1700 AC 07/20 PO 1852 Bisacodyl 5 MG DAILY 07/19 0900 AC 07/21 PO 1152 Budesonide/ 2 PUF BID 07/21 0900 AC 07/21 Formoterol Fumarate INH 1155 Calcium Carbonate 500 MG DAILY 07/19 1049 AC 07/21 PO 1153 Docusate Sodium 100 MG DAILY 07/21 1200 AC 07/21 PO 1314 Finasteride 5 MG DAILY 07/17 1145 AC 07/21 PO 1152 Insulin Aspart 0 TIDAC 07/16 0800 AC 07/21 SC 1314 Omeprazole 40 MG DAILY AC 07/18 1622 AC 07/21 PO 0655 Ondansetron HCl 4 MG Q6-PRN PRN 07/21 1200 AC PO Ondansetron HCl 4 MG ONCE ONE 07/21 0115 DC 07/21 PO 07/21 0116 0121 Ondansetron HCl 0 .STK-MED ONE 07/21 0112 DC PO Oxycodone HCl 40 MG BID 07/15 2254 AC 07/21 PO 0813 Oxycodone/ 2 TAB Q12P PRN 07/16 1041 AC 07/20 Acetaminophen PO 1111 Polyethylene Glycol 17 GM DAILY 07/19 0900 AC 07/21 PO 1151 Vital Signs & I&O Last 24 Hrs of Vitals and I&O: Vital Signs Date Time Temp Pulse Resp B/P B/P Pulse O2 O2 Flow FiO2 Mean Ox Delivery Rate 07/21 1152 83 132/57 07/21 0636 97.8 86 18 132/56 92 Nasal Cannula 07/21 0000 Nasal 3.0L Cannula 07/20 2109 98.3 85 18 126/56 95 Nasal Cannula 07/20 1600 Nasal 4.0L Cannula 07/20 1400 98.2 84 18 134/62 92 Nasal Cannula Intake & Output 07/21 1600 07/21 0800 07/21 0000 Intake Total 200 240 Output Total 2300 1860 Balance -2100 -1620 Intake, Oral 200 240 Output, Urine 2300 1860 Impression/Plan Impression/Plan Impression/Plan: CXR IMPRESSION: 1. There has been interval decrease in the bibasilar airspace opacities compared to the prior study. 2. The right lateral chest opacity with adjacent healed rib fractures is unchanged. As previously suggest, this could be further evaluated with CT scan of the chest. DICTATED BY: Antony Wood MD DATE/TIME DICTATED:07/21/18842 ECHO CONCLUSIONS 1. Normal EF of 60% with moderate posterior wall hypokinesis and impaired LV relaxation. 2. Moderate left atrial enlargement. 3. Trace mitral regurgitation. 4. Moderate tricuspid regurgitation. 5. Mild pulmonic regurgitation. 6. Trace aotic insufficiency. 7. Moderate to severe pulmonary hypertension. General Appearance: well developed/nourished, no apparent distress, alert, awake Head: atraumatic Neck: normal inspection, supple Respiratory: normal breath sounds, chest non-tender Cardiovascular: regular rate/rhythm Gastrointestinal: soft, non-tender Extremities: B/L pedal edema grade 1 with chronic venous changes., b/l statis dematitis Neurologic/Psych: awake, alert, oriented x 3 IMPRESSION This is a gentleman who usually gets his care at [facility] with recurrent hematuria with prior workup apparently negative ongoing on and off for one yr, COPD hypertension diabetes, came into the emergency room because he had significant hematuria. Subsequently was noted to have diffuse EKG changes in the lateral leads. * Significant emphysema with basilar ILD noted in the CAT scan not actively wheezing, with morbid obesity with bibailar atx with hypoxia now requiring oxygen. NO sig bronchospasm or cough * Significant hematuria and blood loss anemia now s/p transfusions with ongoing hematuria with suprapubic discomfort / now on CBI / urology onboard and they have recommended proscar * Significant EKG changes, no significant pain patient has diabetes however. So far troponin is not significantly elevated/ echo no wall motion abnormality with diastolic disease * CKD tage 2 chronic renal failure * Diabetes, hypertension hyperlipidemia * RECOMMENDATION Chest ct without c Sputum culture Keep hob Nebs with duoneb bid atc Incentive spirometry Continue continuous bladder irrigation per urology Patient is not a candidate for anticoagulation due to gross hematuria Await urine cytology Now on tele team
[2018-07-21 14:46] VITALS: BP 130/60
--- NOTE | 2018-07-21 16:49 | PN- Urology ---
Subjective Subjective: No distress currently. Mares had to be irrigated last PM Objective Vital Signs and I&Os Vital Signs Date Time Temp Pulse Resp B/P B/P Pulse O2 O2 Flow FiO2 Mean Ox Delivery Rate 07/21 1457 20 90 Nasal 2.0L Cannula 07/21 1446 98.4 92 130/60 97 Nasal 2.0L Cannula 07/21 1152 83 132/57 07/21 0636 97.8 86 18 132/56 92 Nasal Cannula 07/21 0000 Nasal 3.0L Cannula 07/20 2109 98.3 85 18 126/56 95 Nasal Cannula Intake & Output 07/21 1600 07/21 0800 07/21 0000 07/20 1600 07/20 0800 07/20 0000 Intake Total 200 240 400 120 804 Output Total 2300 1860 900 900 Balance -2100 -1620 400 -780 -96 Intake, Oral 200 240 400 120 804 Number 0 Bowel Movements Output, Urine 2300 1860 900 900 Abd: obese, soft, non tender. Bladder not palpable Genitalia: 3-way mares in place. CBI running at moderate to fast rate. Drainage pink to red Laboratory Tests 07/21 07/20 0636 1725 Chemistry Sodium (137 - 145 mmol/L) 134 L Potassium (3.5 - 5.1 mmol/L) 4.8 Chloride (98 - 107 mmol/L) 100 Carbon Dioxide (22 - 30 mmol/L) 25 Anion Gap (5 - 16) 9 BUN (9 - 20 mg/dL) 26 H Creatinine (0.7 - 1.2 mg/dL) 1.2 Estimated GFR (>60 ml/min) 60 BUN/Creatinine Ratio (7 - 25 %) 21.7 Total Bilirubin (0.2 - 1.3 mg/dL) 0.3 Direct Bilirubin (< 0.4 mg/dL) 0.3 AST (17 - 59 U/L) 24 ALT (21 - 72 U/L) 29 Alkaline Phosphatase (< 127 U/L) 41 Total Protein (6.3 - 8.2 g/dL) 5.5 L Albumin (3.5 - 5.0 g/dL) 3.0 L Hematology CBC w Diff NO MAN DIFF REQ WBC (4.8 - 10.8 /CUMM) 10.9 H RBC (4.70 - 6.10 /CUMM) 2.82 L Hgb (14.0 - 18.0 G/DL) 8.4 L Hct (42 - 52 %) 26.0 L MCV (80.0 - 94.0 FL) 92.1 MCH (27.0 - 31.0 PG) 30.0 MCHC (33.0 - 37.0 G/DL) 32.5 L RDW (11.5 - 14.5 %) 14.7 H Plt Count (130 - 400 /CUMM) 221 MPV (7.4 - 10.4 FL) 8.1 Gran % (42.2 - 75.2 %) 87.5 H Lymphocytes % (20.5 - 51.1 %) 5.0 L Monocytes % (1.7 - 9.3 %) 6.3 Eosinophils % (0 - 5 %) 1.1 Basophils % (0.0 - 2.0 %) 0.1 Absolute Granulocytes (1.4 - 6.5 /CUMM) 9.5 H Absolute Lymphocytes (1.2 - 3.4 /CUMM) 0.5 L Absolute Monocytes (0.10 - 0.60 /CUMM) 0.7 H Absolute Eosinophils (0.0 - 0.7 /CUMM) 0.1 Absolute Basophils (0.0 - 0.2 /CUMM) 0 Urines Urine Color (YEL,AMB,STR) STRAW Urine Clarity (CLEAR) HAZY H Urine pH (5.0 - 8.0) 6.5 Ur Specific [place] (1.001 - 1.035) 1.010 Urine Protein (NEG,<30 MG/DL) NEG Urine Ketones (NEG) NEG Urine Nitrite (NEG) NEG Urine Bilirubin (NEG) NEG Urine Urobilinogen (0.1 - 1.0 EU/dl) 0.2 Ur Leukocyte Esterase (NEG) NEG Ur Microscopic SEDIMENT EXAMINED Urine RBC (0 - 5 /HPF) >75 H Urine WBC (0 - 2 /HPF) RARE Ur Epithelial Cells (NONE,FEW) RARE Urine Hemoglobin (NEG) MOD H Urine Glucose (N MG/DL) NEG Assessment/Plan Assessment/Plan Imp: 1. Gross hematuria of unclear cause Plan: 1. Would consider transfusion of 1 unit PRBC's 2. Keep npo after midnight 3. Dr Steward will re-evaluate in AM for possible cysto tomorrow
[2018-07-21 20:42] LABS: ABSOLUTE BASOPHIL COUNT 0 /CUMM (0.0-0.2); ABSOLUTE EOSINOPHIL COUNT 0.2 /CUMM (0.0-0.7); ABSOLUTE GRANULOCYTE CT 10.6 /CUMM (1.4-6.5); ABSOLUTE LYMPH COUNT 1.6 /CUMM (1.2-3.4); ABSOLUTE MONOCYTE COUNT 1.2 /CUMM (0.10-0.60); BASOPHIL % 0.1 % (0.0-2.0); EOSINOPHIL % 1.5 % (0-5); HEMATOCRIT 28.4 % (42-52); MEAN CORPUSCULAR HGB 29.5 PG (27.0-31.0); MEAN CORPUSCULAR HGB CONC 32.2 G/DL (33.0-37.0); MEAN CORPUSCULAR VOLUME 91.6 FL (80.0-94.0); MEAN PLATELET VOLUME 7.8 FL (7.4-10.4); PLATELET COUNT 268 /CUMM (130-400); RBC DISTRIBUTION WIDTH 14.9 % (11.5-14.5); WHITE BLOOD CELL COUNT 13.6 /CUMM (4.8-10.8)
--- NOTE | 2018-07-21 21:35 | CT SCAN REPORT ---
EXAMINATION: CT CHEST WITHOUT CONTRAST CLINICAL INFORMATION: Hypoxia. COMPARISON: Portable chest x-ray 07/21/2018 TECHNIQUE: Multidetector volumetric CT imaging of the chest was done. Axial MIP volume rendering provided. Sagittal and coronal reformatted images were obtained. DLP: 748.46 mGy-cm FINDINGS: LUNGS: There is bullous emphysematous changes of the lung. There are subpleural blebs at the posterior lungs and there is honeycombing in the subpleural lung at the lung bases. No acute abnormality of chest. No acute infiltrate. Central bronchial airways are open. MEDIASTINUM: There are small shotty subcentimeter lymph nodes in the mediastinum but no bulky lymphadenopathy. There is atherosclerotic vascular wall calcifications of aorta at the origin of the great vessels. There is coronary artery calcifications. There is no pericardial effusion. PLEURA: There is no pleural effusion. No pleural mass or thickening. AXILLA: No lymphadenopathy. UPPER ABDOMEN: There are multiple calcified gallstones layering dependently in the gallbladder. No focal liver lesion. The visualized portions of the spleen and the pancreas are unremarkable. The adrenal glands are normal. There is atherosclerotic vascular calcifications of the aorta and at the origin of the SMA. There is a parapelvic cyst in the upper pole of right kidney measuring 2.5 cm. OSSEOUS STRUCTURES: Multilevel degenerative spondylosis of the spine with disc height narrowing and plate spurring of the vertebrae. There are old healed fractures of the right 5th and 6th rib at the posterior axillary line. IMPRESSION: There is advanced emphysematous changes of lung. No acute abnormality.
[2018-07-21 22:04] VITALS: BP 130/74
[2018-07-22 06:55] VITALS: BP 110/50
--- NOTE | 2018-07-22 07:18 | PN- Housestaff ---
Sindhu Jeffersonjose a 07/22/18717: Subjective Follow-up For: Gross hematuria Subjective: Overnight patient was in normal sinus rhythm heart rate ranging between 74-83. Patient was coughing when it examined this morning, states she has been having a couple of days. Patient states he has a history of COPD for which he is not on home oxygen, currently is at 2.0 L. Review of Systems Constitutional: Denies: chills, diaphoresis, fever. EENTM: Denies: blurred vision. Cardiovascular: Denies: chest pain, palpitations. Respiratory: Denies: cough, short of breath. Gastrointestinal: Denies: abdominal pain, constipation, diarrhea. Objective Last 24 Hrs of Vital Signs/I&O Vital Signs Date Time Temp Pulse Resp B/P B/P Pulse O2 O2 Flow FiO2 Mean Ox Delivery Rate 07/22 0834 80 114/54 07/22 0800 92 Nasal 2.0L Cannula 07/22 0655 97.8 82 22 110/50 84 07/22 0000 Nasal 2.0L Cannula 07/21 2204 98.6 79 22 130/74 93 07/21 1457 20 90 Nasal 2.0L Cannula 07/21 1446 98.4 92 130/60 97 Nasal 2.0L Cannula Intake & Output 07/22 1600 07/22 0800 07/22 0000 Intake Total 400 600 Output Total 1050 Balance -650 600 Intake, Blood 350 Product Intake, IV 50 Intake, Oral 600 Output, Urine 1050 Patient 260 lb Weight Physical Exam General Appearance: Alert, Oriented X3, Cooperative Cardiovascular: Regular Rate, Normal S1, Normal S2 Lungs: Clear to Auscultation, Normal Air Movement Abdomen: Normal Bowel Sounds, Soft, No Tenderness Extremities: No Cyanosis, No Edema, Normal Pulses Other Physical Findings: Solo in place, bag contains blood clots and blood tinged urine Current Medications: Current Medications Sig/Dolores Start time Last Medication Dose Route Stop Time Status Admin Albuterol Sulfate 3 ML BID 07/21 2100 AC INH Albuterol Sulfate 3 ML Q6 PRN 07/21 0830 AC INH Atenolol 25 MG DAILY 07/21 0800 AC 07/22 PO 0834 Atorvastatin Calcium 20 MG 1700 07/16 1700 AC 07/21 PO 1759 Bisacodyl 5 MG DAILY 07/19 09 AC 07/22 PO 0837 Budesonide/ 2 PUF BID 07/21 0900 AC 07/22 Formoterol Fumarate INH 0838 Calcium Carbonate 500 MG DAILY 07/19 1049 AC 07/22 PO 0838 Docusate Sodium 100 MG DAILY 07/21 1200 AC 07/22 PO 0837 Fentanyl Citrate 0 .STK-MED ONE 07/22 1048 DC .ROUTE Finasteride 5 MG DAILY 07/17 1145 AC 07/22 PO 0837 Guaifenesin 600 MG Q12 07/22 0900 AC PO Hydromorphone HCl 0 .STK-MED ONE 07/22 1244 DC .ROUTE Hydromorphone HCl 0 .STK-MED ONE 07/22 1049 DC .ROUTE Insulin Aspart 0 TIDAC 07/16 0800 AC 07/21 SC 1804 Ipratropium [place] 2.5 ML BID 07/21 2100 AC INH Ketamine HCl 0 .STK-MED ONE 07/22 1100 DC .ROUTE Midazolam HCl 0 .STK-MED ONE 07/22 1100 DC .ROUTE Omeprazole 40 MG DAILY AC 07/18 1622 AC 07/22 PO 0501 Ondansetron HCl 0 .STK-MED ONE 07/22 1219 DC .ROUTE Ondansetron HCl 4 MG Q6-PRN PRN 07/21 1200 AC PO Oxycodone HCl 40 MG BID 07/15 2254 AC 07/22 PO 0844 Oxycodone/ 2 TAB Q12P PRN 07/16 1041 AC 07/20 Acetaminophen PO 1111 Polyethylene Glycol 17 GM DAILY 07/19 0900 AC 07/22 PO 0837 Tiotropium [place] 1 PUF DAILY 07/22 1300 AC INH Last 24 Hrs of Lab/Shaheed Results Last 24 Hrs of Labs/Mics: Laboratory Tests 07/22/18 0652: Anion Gap 7, Estimated GFR 50 L, BUN/Creatinine Ratio 19.3, CBC w Diff NO MAN DIFF REQ, RBC 3.22 L, MCV 91.1, MCH 29.8, MCHC 32.7 L, RDW 15.6 H, MPV 7.8, Gran % 75.2, Lymphocytes % 13.2 L, Monocytes % 9.2, Eosinophils % 2.3, Basophils % 0.1, Absolute Granulocytes 7.7 H, Absolute Lymphocytes 1.3, Absolute Monocytes 0.9 H, Absolute Eosinophils 0.2, Absolute Basophils 0 07/21/185: CBC w Diff NO MAN DIFF REQ, RBC 3.10 L, MCV 91.6, MCH 29.5, MCHC 32.2 L, RDW 14.9 H, MPV 7.8, Gran % 78.0 H, Lymphocytes % 11.4 L, Monocytes % 9.0, Eosinophils % 1.5, Basophils % 0.1, Absolute Granulocytes 10.6 H, Absolute Lymphocytes 1.6, Absolute Monocytes 1.2 H, Absolute Eosinophils 0.2, Absolute Basophils 0 Assessment/Plan Assessment: 73 y/o M with PMH of HTN, DM, emphysema, hematuria for over 3 years, had an extensive workup last year including cystoscopy, bladder biopsy without any positive findings who presented to the ED c/o o difficulty urinating that started 1 week ago and got progressively worse until when he was not able to pass urine. Of note, during his ED stay, EKG showed ST segment depressions involving leads V2 to V6. Subsequently, Dr. Estevez was informed who recommended ICU admission and transfusion for further monitoring. Patient received 1U PRBC. He also received one dose of ceftriaxone in ED, considering WBC in urine and nitites. ASSESSMENT #[id number] anemia 2/2 chronic hematuria, s/p 3U PRBCs. #Chronic gross hematuria, etiology unclear #Leukocytosis #EKG Changes #Acute hypoxic respiratory failure, on 2L NC #Constipation #CKD Stage III #H/o HTN/HLD #H/o diabetes #Acute on chronic anemia s/p 3U PRBC. H/H today with a drop from 9.3 to 8.4. This is most likely 2/2 ongoing chronic hematuria. Patient received 1 unit PRBC on 07/21/2018 per recommendations of urology. -Keep his hemoglobin above 8.5 -Follow H&H daily #Gross hematuria:Prior extensive workup did not pinpoint clear etiology, unsure of etiology during this admission. -Continue CBI, patient is continuing to pass clots. Will attempt CBI clamp trial once patient stopping passing hematuria and clots. -Avoid aspirin and heparin. -Continue finasteride 5 mg daily -Patient underwent cystoscopy today which was negative for latter lesions or tumors as his source of his bleeding. Urology recommends a CT scan with IV contrast or MRI to determine the etiology. #Leukocytosis: WBC have normalized, off abx. Pulmonary vs Urinary in etiology; he is requiring oxygen use to mantain saturation. UA did also show positive nitritis, bacteria and WBC. Afebrile so far in this admission. CXR showed improved bibasilar opacities from prior study. Repeat UA on 07/20/18 does not show nitrites or WBC but does note bacteria. Repeat chest x-ray on 07/21/18 shows interval decrease in bibasilar airspace opacities as compared to prior study. Resolved on 07/22/18, was not treated with ABx, seems to be reactive changes. -continue to monitor trend #EKG changes: -Patient had EKG changes, ST segment and T wave inversion in V2 to V with negative trops x5, echo showed EF of 60%. -Cardiology recommended cardiac cath after stabilization to rule out ischemia. -Not a candidate for anticoagulation at this time due to hematuria. #Acute hypoxic respiratory failure: Patient has bibasilar opacities possibly due to atelectasis as he remained afebrile though now improving as per latest CXR. Patient has history of emphysema and his morbid obesity are also contributing factors. Will get chest CT to evaluate for acute pulm pathology. -pt still on oxygen, today's at 2.0 L of oxygen -Chest CT on 07/21/2018 shows advanced emphysematous changes of the lung, no acute abnormality -Continue incentive spirometry -Wean off oxygen as tolerated keeping his oxygen saturation above 92%. Patient does not use oxygen at home. Constipation: -Daily MiraLAX and bisacodyl History of chronic kidney disease stage III:On admission, Cr was 1.5, which may be close and new baseline. -Creatinine level level has been function fluctuating between 1.2-1.4 over the past 4 days. History of hypertension and hyperlipidemia: -Continue Lipitor -continue on atenolol History of diabetes: -Accu-Cheks, his fasting blood sugar level is 260 this morning. -Insulin NovoLog according to sliding scale -Hold metformin while patient in the hospital. DVTprophylaxis: Mechanical only CODE STATUS: Full code Diet: Consistent carbohydrate 3 Problem List: 1. Hematuria Pain Ratin Pain Location: n/a Pain Goal: Remain pain free Pain Plan: home dose of oxycontin Tomorrow's Labs & Rationales: cbc, bep Yony LEGER,Ildefonso 07/22/18 1124: Attending MD Review Statement Attending Statement Attending MD Statement: examined this patient, discuss w/resident/PA/ADVERTISING INSERTER, agreed w/resident/PA/ADVERTISING INSERTER, reviewed EMR data (avail), discussed with nursing, discussed with case mgmt, amended to note Attending Assessment/Plan: Patient seen and examined. Resting comfortably not in any acute distress. No issues overnight. No events on telemetry monitoring. He is alert and oriented the right forearm. By the time we examined him during rounds he reports that symptoms have markedly improved. He denied any weakness. On examination he has no focal deficits on the upper or lower extremities. He has no facial asymmetry and his speech is intact. Solo catheter remains in place continues to have Gross hematuria. He however does appear less intense today. He was seen by the urology service yesterday and based on the mild drop of his hemoglobin level blood transfusion was recommended. He got a unit of blood yesterday. Hemoglobin level improved appropriately. Per recommendations of the urology service he is scheduled to undergo cystoscopy later on today. If his hemoglobin level remained stable and hematuria resolves we will begin discharge planning for the patient. Chest CT done yesterday to evaluate abnormal findings on x-ray shows no evidence of any acute abnormality. It shows advanced emphysematous changes. Oxygen requirement is improving today and leukocytosis has resolved. We will continue to monitor patient off antibiotic therapy. We will continue his pulmonary regimen.
[2018-07-22 07:50] LABS: ABSOLUTE BASOPHIL COUNT 0 /CUMM (0.0-0.2); ABSOLUTE EOSINOPHIL COUNT 0.2 /CUMM (0.0-0.7); ABSOLUTE GRANULOCYTE CT 7.7 /CUMM (1.4-6.5); ABSOLUTE LYMPH COUNT 1.3 /CUMM (1.2-3.4); ABSOLUTE MONOCYTE COUNT 0.9 /CUMM (0.10-0.60); BASOPHIL % 0.1 % (0.0-2.0); EOSINOPHIL % 2.3 % (0-5); GRANULOCYTE % 75.2 % (42.2-75.2); HEMATOCRIT 29.3 % (42-52); MEAN CORPUSCULAR HGB 29.8 PG (27.0-31.0); MEAN CORPUSCULAR HGB CONC 32.7 G/DL (33.0-37.0); MEAN CORPUSCULAR VOLUME 91.1 FL (80.0-94.0); MEAN PLATELET VOLUME 7.8 FL (7.4-10.4); PLATELET COUNT 216 /CUMM (130-400); RBC DISTRIBUTION WIDTH 15.6 % (11.5-14.5); RED BLOOD CELL CT 3.22 /CUMM (4.70-6.10); WHITE BLOOD CELL COUNT 10.2 /CUMM (4.8-10.8)
--- NOTE | 2018-07-22 12:06 | Operative Report ---
Operative/Inv Procedure Report Surgery Date: 07/22/18 Name of Procedure: cystoscopy, clot and bladder stone evacuation, fulguration of bladder neck and resection friable prostate Pre-Operative Diagnosis: gross hematuria or unclear etiology Post-Operative Diagnosis: gross hematuria from right ureter Estimated Blood Loss: less than 50ml Surgeon/Senior Informatic[employer] Etl Developer: Savanna Cedillo MD Anesthesia: laryngeal mask airway Drains: 20fr 3 way Specimens: prostate chips, large clots, bladder stones Complications: none Condition: stable Operative Indication: gross hematuria of unclear etiology Operative/Procedure Note Note: This 73-year-old male with a history of gross hematuria intermittently for 3 years that has been evaluated at the [facility]. He has been in patient with intermittent gross hematuria with a three-way Solo catheter in. His hematocrit has slowly trended down. As result he was consented for a cystoscopy fulguration of any bleeding source and evacuation of clot. The risks benefits and alternatives were given and all questions were answered prior to the consent being signed. Patient was taken to the operating placed on the operating table in supine position. Timeout was performed. IV antibiotics of Cipro 400 mg was given. LMA anesthesia was begun. The patient was placed in the dorsal lithotomy position. He was prepped and draped in the standard sterile fashion. He had a lot of of penile of smegma yellow discharge and crusting around his perineal area and uncircumcised penis. This was cleaned with Betadine solution with the foreskin retracted back. Cystoscopy was placed without difficulty and the bladder was globally inspected. However was difficult to see the bladder mucosa given the large clots. Resectoscope with the bipolar loop was placed into the bladder and Ellik evacuator was used to evacuate the large clots. At this point bladder chips were also seen and these were evacuated as well. Bladder was globally inspected. No bladder tumors or lesions were appreciated. The ureteral orifices were easily identified. The prostate was then visualized and the bladder neck was quite friable as well as the the proximal portion of the prostate. As result this was resected and all bleeding was coagulated. Again the ureteral orifices were identified to ensure they were not injured. However upon doing so the right ureteral orifice effluxed grossly bloody urine darker than wide in color. This effluxed several times. The left side did not do so. All the prostate chips were evacuated out with the Ellik evacuator. Point coagulation was performed on the bladder neck and the prostate again. The resectoscope was removed. The 20 [place] three-way Solo catheter was placed into the bladder and CBI was begun. Patient tolerated procedure well. He was transferred to recovery room in stable condition. Findings: Large bladder clots and bladder stones yellow in color. No bladder lesions or tumors. Friable bladder neck and proximal prostate. Grossly bloody efflux from the right ureteral orifice. Discharge Disposition: PACU
--- NOTE | 2018-07-22 12:10 | PN- Urology ---
Subjective Subjective: pt with no change to his issues. No new complaints. Review of Systems Constitutional: Reports: no symptoms. EENTM: Reports: no symptoms. Cardiovascular: Reports: no symptoms. Respiratory: Reports: no symptoms. Gastrointestinal: Reports: no symptoms. Genitourinary: Reports: no symptoms. Musculoskeletal: Reports: no symptoms. Skin: Reports: no symptoms. Neurological/Psychological: Reports: no symptoms. Hematologic/Endocrine: Reports: bleeding. Immunologic/Allergic: Reports: no symptoms. Objective Vital Signs and I&Os Vital Signs Date Time Temp Pulse Resp B/P B/P Pulse O2 O2 Flow FiO2 Mean Ox Delivery Rate 07/22 0834 80 114/54 07/22 0655 97.8 82 22 110/50 84 07/22 0000 Nasal 2.0L Cannula 07/21 2204 98.6 79 22 130/74 93 07/21 1457 20 90 Nasal 2.0L Cannula 07/21 1446 98.4 92 130/60 97 Nasal 2.0L Cannula Intake & Output 07/22 1600 07/22 0800 07/22 0000 07/21 1600 07/21 0800 07/21 0000 Intake Total 400 600 800 200 240 Output Total 1050 1050 2300 1860 Balance -650 600 -250 -2100 -1620 Intake, Blood 350 Product Intake, IV 50 Intake, Oral 600 800 200 240 Number 0 Bowel Movements Output, Urine 1050 1050 2300 1860 Patient 117.991 kg Weight Physical Exam General Appearance: no apparent distress, alert, awake, comfortable Head: atraumatic, normal appearance Ears, Nose, Throat: normal ENT inspection Neck: normal inspection Respiratory: normal breath sounds Abdomen: soft, non-tender Rectal: deferred Back: normal inspection Extremities: normal inspection Neurologic/Psychiatric: awake, alert Skin: intact, normal color, warm/dry Reproductive: Normal male genitalia, gross smegma under the foreskin and around the uncircumcised penis was lots of debris Current Medications: Current Medications Sig/Dolores Start time Last Medication Dose Route Stop Time Status Admin Albuterol Sulfate 3 ML BID 07/21 2100 AC INH Albuterol Sulfate 3 ML Q6 PRN 07/21 0830 AC INH Atenolol 25 MG DAILY 07/21 0800 AC 07/22 PO 0834 Atorvastatin Calcium 20 MG 1700 07/16 1700 AC 07/21 PO 1759 Bisacodyl 5 MG DAILY 07/19 0900 AC 07/22 PO 0837 Budesonide/ 2 PUF BID 07/21 0900 AC 07/22 Formoterol Fumarate INH 0838 Calcium Carbonate 500 MG DAILY 07/19 1049 AC 07/22 PO 0838 Docusate Sodium 100 MG DAILY 07/21 1200 AC 07/22 PO 0837 Fentanyl Citrate 0 .STK-MED ONE 07/22 1048 DC .ROUTE Finasteride 5 MG DAILY 07/17 1145 AC 07/22 PO 0837 Guaifenesin 600 MG Q12 07/22 0900 AC PO Hydromorphone HCl 0 .STK-MED ONE 07/22 1049 DC .ROUTE Insulin Aspart 0 TIDAC 07/16 0800 AC 07/21 SC 1804 Ipratropium [place] 2.5 ML BID 07/21 2100 AC INH Ketamine HCl 0 .STK-MED ONE 07/22 1100 DC .ROUTE Midazolam HCl 0 .STK-MED ONE 07/22 1100 DC .ROUTE Omeprazole 40 MG DAILY AC 07/18 1622 AC 07/22 PO 0501 Ondansetron HCl 4 MG Q6-PRN PRN 07/21 1200 AC PO Oxycodone HCl 40 MG BID 07/15 2254 AC 07/22 PO 0844 Oxycodone/ 2 TAB Q12P PRN 07/16 1041 AC 07/20 Acetaminophen PO 1111 Polyethylene Glycol 17 GM DAILY 07/19 0900 AC 07/22 PO 0837 Results Last 48 Hours of Labs: Laboratory Tests 07/22 07/21 0652 1935 Chemistry Sodium (137 - 145 mmol/L) 135 L Potassium (3.5 - 5.1 mmol/L) 4.4 Chloride (98 - 107 mmol/L) 101 Carbon Dioxide (22 - 30 mmol/L) 27 Anion Gap (5 - 16) 7 BUN (9 - 20 mg/dL) 27 H Creatinine (0.7 - 1.2 mg/dL) 1.4 H Estimated GFR (>60 ml/min) 50 L BUN/Creatinine Ratio (7 - 25 %) 19.3 Hematology CBC w Diff NO MAN DIFF REQ NO MAN DIFF REQ WBC (4.8 - 10.8 /CUMM) 10.2 13.6 H RBC (4.70 - 6.10 /CUMM) 3.22 L 3.10 L Hgb (14.0 - 18.0 G/DL) 9.6 L 9.2 L Hct (42 - 52 %) 29.3 L 28.4 L MCV (80.0 - 94.0 FL) 91.1 91.6 MCH (27.0 - 31.0 PG) 29.8 29.5 MCHC (33.0 - 37.0 G/DL) 32.7 L 32.2 L RDW (11.5 - 14.5 %) 15.6 H 14.9 H Plt Count (130 - 400 /CUMM) 216 268 MPV (7.4 - 10.4 FL) 7.8 7.8 Gran % (42.2 - 75.2 %) 75.2 78.0 H Lymphocytes % (20.5 - 51.1 %) 13.2 L 11.4 L Monocytes % (1.7 - 9.3 %) 9.2 9.0 Eosinophils % (0 - 5 %) 2.3 1.5 Basophils % (0.0 - 2.0 %) 0.1 0.1 Absolute Granulocytes (1.4 - 6.5 /CUMM) 7.7 H 10.6 H Absolute Lymphocytes (1.2 - 3.4 /CUMM) 1.3 1.6 Absolute Monocytes (0.10 - 0.60 /CUMM) 0.9 H 1.2 H Absolute Eosinophils (0.0 - 0.7 /CUMM) 0.2 0.2 Absolute Basophils (0.0 - 0.2 /CUMM) 0 0 07/21 07/20 0636 1725 Chemistry Sodium (137 - 145 mmol/L) 134 L Potassium (3.5 - 5.1 mmol/L) 4.8 Chloride (98 - 107 mmol/L) 100 Carbon Dioxide (22 - 30 mmol/L) 25 Anion Gap (5 - 16) 9 BUN (9 - 20 mg/dL) 26 H Creatinine (0.7 - 1.2 mg/dL) 1.2 Estimated GFR (>60 ml/min) 60 BUN/Creatinine Ratio (7 - 25 %) 21.7 Total Bilirubin (0.2 - 1.3 mg/dL) 0.3 Direct Bilirubin (< 0.4 mg/dL) 0.3 AST (17 - 59 U/L) 24 ALT (21 - 72 U/L) 29 Alkaline Phosphatase (< 127 U/L) 41 Total Protein (6.3 - 8.2 g/dL) 5.5 L Albumin (3.5 - 5.0 g/dL) 3.0 L Hematology CBC w Diff NO MAN DIFF REQ WBC (4.8 - 10.8 /CUMM) 10.9 H RBC (4.70 - 6.10 /CUMM) 2.82 L Hgb (14.0 - 18.0 G/DL) 8.4 L Hct (42 - 52 %) 26.0 L MCV (80.0 - 94.0 FL) 92.1 MCH (27.0 - 31.0 PG) 30.0 MCHC (33.0 - 37.0 G/DL) 32.5 L RDW (11.5 - 14.5 %) 14.7 H Plt Count (130 - 400 /CUMM) 221 MPV (7.4 - 10.4 FL) 8.1 Gran % (42.2 - 75.2 %) 87.5 H Lymphocytes % (20.5 - 51.1 %) 5.0 L Monocytes % (1.7 - 9.3 %) 6.3 Eosinophils % (0 - 5 %) 1.1 Basophils % (0.0 - 2.0 %) 0.1 Absolute Granulocytes (1.4 - 6.5 /CUMM) 9.5 H Absolute Lymphocytes (1.2 - 3.4 /CUMM) 0.5 L Absolute Monocytes (0.10 - 0.60 /CUMM) 0.7 H Absolute Eosinophils (0.0 - 0.7 /CUMM) 0.1 Absolute Basophils (0.0 - 0.2 /CUMM) 0 Urines Urine Color (YEL,AMB,STR) STRAW Urine Clarity (CLEAR) HAZY H Urine pH (5.0 - 8.0) 6.5 Ur Specific [place] (1.001 - 1.035) 1.010 Urine Protein (NEG,<30 MG/DL) NEG Urine Ketones (NEG) NEG Urine Nitrite (NEG) NEG Urine Bilirubin (NEG) NEG Urine Urobilinogen (0.1 - 1.0 EU/dl) 0.2 Ur Leukocyte Esterase (NEG) NEG Ur Microscopic SEDIMENT EXAMINED Urine RBC (0 - 5 /HPF) >75 H Urine WBC (0 - 2 /HPF) RARE Ur Epithelial Cells (NONE,FEW) RARE Urine Hemoglobin (NEG) MOD H Urine Glucose (N MG/DL) NEG Recent Imaging Studies: EXAM TYPE: CAT - CT ABD & PELVIS W/O IV CONTRAS EXAMINATION: CT ABDOMEN AND PELVIS WITHOUT CONTRAST CLINICAL INFORMATION: Chronic Hematuria. Anemia. Acute blood loss COMPARISON: CT scan abdomen pelvis 12/31/2016. TECHNIQUE: Multidetector volumetric imaging was performed from the superior aspect of the liver through the pubic symphysis. Sagittal and coronal reformatted images were obtained on the technologist's workstation. DLP: 1378.28 mGy-cm FINDINGS: LUNG BASES: There is marked emphysematous changes of lungs with large blebs and interstitial thickening. There is no infiltrate or pleural effusion. LIVER, GALLBLADDER, AND BILIARY TREE: The liver is normal in size, shape, and attenuation. No focal hepatic lesion or biliary ductal dilatation is present. There are multiple small calcified gallstones layering dependently in the gallbladder. No edema around the gallbladder. Extrahepatic CBD measures 6 mm.. There is no calcified gallstone within the bile ducts. PANCREAS: Unremarkable. SPLEEN: Unremarkable. ADRENAL GLANDS: Unremarkable. KIDNEYS AND URETERS: The kidneys are normal in size, shape, and attenuation. No hydronephrosis, hydroureter, or calculi seen. No perinephric stranding. There are renal cysts in the lower pole and upper pole of the right kidney. Largest at lower pole is pedunculated inferiorly. Measures 4.8 cm. BLADDER: Solo catheter within the bladder. There is a small collection of air in the bladder from the instrumentation. GASTROINTESTINAL TRACT: There is marked diverticulosis of the sigmoid and left colon. There is no acute change of the bowel. No bowel obstruction. No bowel wall thickening or edema. The appendix is normal. The small bowel loops are unremarkable. ABDOMINAL WALL: There is a fat-containing umbilical hernia. LYMPH NODES: Normal. VASCULAR: There is extensive vascular calcifications in the abdomen and the pelvis. There is no aneurysm of aorta. PELVIC VISCERA: Unremarkable. OSSEOUS STRUCTURES: Multilevel degenerative spondylosis of disc height narrowing and vacuum disc phenomenon with endplate spurring and facet joint arthrosis. IMPRESSION: There is no acute abnormality of the abdomen or the pelvis. Cholelithiasis. Diverticulosis of colon. No acute abnormality of the bowel. Marked emphysematous changes of lung bases. Assessment/Plan Assessment/Plan 73yo male with a hx of intermittent gross hematuria for three years evaluated at the [place]. He cont to have this issue and was taken to the OR today. There were no bladder lesion or tumors. His proximal prostate and bladder neck were friable and were fulgurated or resected. while evaluating th ureters, the right side effluxed grossly bloody efflux. It was thick. Patient needs a CT scan with IV contrast or MRI to determine the etiology. Dr. Robin is environmental services manager this weekend. Core Measures Venous Thromboembolism VTE Risk Factors Age>40 No Mechanical VTE Prophylaxis d/t N/A MechProphylax Ordered No VTE Pharm Prophylaxis d/t Bleeding (Active)
--- NOTE | 2018-07-22 12:43 | PN- Pulmonary ---
Subjective HPI/Critical Care Issues: S/p Cysto findings as below Findings: Large bladder clots and bladder stones yellow in color. No bladder lesions or tumors. Friable bladder neck and proximal prostate. Grossly bloody efflux from the right ureteral orifice. Overnight patient was in normal sinus rhythm heart rate ranging between 74-83. Patient was coughing when it examined this morning, states she has been having a couple of days. Objective Current Medications: Current Medications Sig/Dolores Start time Last Medication Dose Route Stop Time Status Admin Albuterol Sulfate 3 ML BID 07/21 2100 AC INH Albuterol Sulfate 3 ML Q6 PRN 07/21 0830 AC INH Atenolol 25 MG DAILY 07/21 0800 AC 07/22 PO 0834 Atorvastatin Calcium 20 MG 1700 07/16 1700 AC 07/21 PO 1759 Bisacodyl 5 MG DAILY 07/19 0900 AC 07/22 PO 0837 Budesonide/ 2 PUF BID 07/21 0900 AC 07/22 Formoterol Fumarate INH 0838 Calcium Carbonate 500 MG DAILY 07/19 1049 AC 07/22 PO 0838 Docusate Sodium 100 MG DAILY 07/21 1200 AC 07/22 PO 0837 Fentanyl Citrate 0 .STK-MED ONE 07/22 1048 DC .ROUTE Finasteride 5 MG DAILY 07/17 1145 AC 07/22 PO 0837 Guaifenesin 600 MG Q12 07/22 0900 AC PO Hydromorphone HCl 0 .STK-MED ONE 07/22 1049 DC .ROUTE Insulin Aspart 0 TIDAC 07/16 0800 AC 07/21 SC 1804 Ipratropium [place] 2.5 ML BID 07/21 2100 AC INH Ketamine HCl 0 .STK-MED ONE 07/22 1100 DC .ROUTE Midazolam HCl 0 .STK-MED ONE 07/22 1100 DC .ROUTE Omeprazole 40 MG DAILY AC 07/18 1622 AC 07/22 PO 0501 Ondansetron HCl 0 .STK-MED ONE 07/22 1219 DC .ROUTE Ondansetron HCl 4 MG Q6-PRN PRN 07/21 1200 AC PO Oxycodone HCl 40 MG BID 07/15 2254 AC 07/22 PO 0844 Oxycodone/ 2 TAB Q12P PRN 07/16 1041 AC 07/20 Acetaminophen PO 1111 Polyethylene Glycol 17 GM DAILY 07/19 0900 AC 07/22 PO 0837 Vital Signs & I&O Last 24 Hrs of Vitals and I&O: Vital Signs Date Time Temp Pulse Resp B/P B/P Pulse O2 O2 Flow FiO2 Mean Ox Delivery Rate 07/22 0834 80 114/54 07/22 0655 97.8 82 22 110/50 84 07/22 0000 Nasal 2.0L Cannula 07/21 2204 98.6 79 22 130/74 93 07/21 1457 20 90 Nasal 2.0L Cannula 07/21 1446 98.4 92 130/60 97 Nasal 2.0L Cannula Intake & Output 07/22 1600 07/22 0800 07/22 0000 Intake Total 400 600 Output Total 1050 Balance -650 600 Intake, Blood 350 Product Intake, IV 50 Intake, Oral 600 Output, Urine 1050 Patient 260 lb Weight Impression/Plan Impression/Plan Impression/Plan: CT chest IMPRESSION: There is advanced emphysematous changes of lung. No acute abnormality. DICTATED BY: Jeff Echols MD DATE/TIME DICTATED:07/21/182102 ECHO CONCLUSIONS 1. Normal EF of 60% with moderate posterior wall hypokinesis and impaired LV relaxation. 2. Moderate left atrial enlargement. 3. Trace mitral regurgitation. 4. Moderate tricuspid regurgitation. 5. Mild pulmonic regurgitation. 6. Trace aotic insufficiency. 7. Moderate to severe pulmonary hypertension. General Appearance: well developed/nourished, no apparent distress, alert, awake Head: atraumatic Neck: normal inspection, supple Respiratory: normal breath sounds, chest non-tender Cardiovascular: regular rate/rhythm Gastrointestinal: soft, non-tender Extremities: B/L pedal edema grade 1 with chronic venous changes., b/l statis dematitis Neurologic/Psych: awake, alert, oriented x 3 IMPRESSION This is a gentleman who usually gets his care at [facility] with recurrent hematuria with prior workup apparently negative ongoing on and off for one yr, COPD hypertension diabetes, came into the emergency room because he had significant hematuria. Subsequently was noted to have diffuse EKG changes in the lateral leads. 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 NO sig bronchospasm or cough * Significant hematuria and blood loss anemia now s/p transfusions with ongoing hematuria with suprapubic s/p cysto * Significant EKG changes, no significant pain patient has diabetes however. So far troponin is not significantly elevated/ echo no wall motion abnormality with diastolic disease * CKD tage 2 chronic renal failure * Diabetes, hypertension hyperlipidemia * RECOMMENDATION Keep hob Nebs with albuterol neb bid prn and start spiriva one puff daily Incentive spirometry Patient is not a candidate for anticoagulation due to gross hematuria Will follow prn
--- NOTE | 2018-07-22 17:02 | CT SCAN REPORT ---
EXAMINATION: CT ABDOMEN AND PELVIS WITHOUT AND WITH CONTRAST CLINICAL INFORMATION: Gross hematuria. COMPARISON: CT scan of the abdomen and pelvis 07/15/2018. CT scan of the chest 07/21/2018. TECHNIQUE: Multidetector volumetric imaging was performed through the abdomen and pelvis prior to IV contrast. The abdomen and pelvis were then reexamined after the administration of 95 mL Optiray 320 intravenous contrast. Sagittal and coronal reformatted images were obtained on the technologist's workstation. DLP: 2664.28 mGy-cm FINDINGS: LUNG BASES: The study redemonstrates the disc emphysematous changes at the lung bases. Honeycombing is redemonstrated at the left greater than right bases. LIVER, GALLBLADDER, AND BILIARY TREE: The liver is normal in size, shape, and attenuation. No focal hepatic lesion or biliary ductal dilatation is present. The gallbladder is well-distended. The study demonstrates dependent radiodense gallstones. The CBD is not distended. PANCREAS: The pancreas is atrophic. SPLEEN: Unremarkable. ADRENAL GLANDS: The adrenal glands are not enlarged. KIDNEYS AND URETERS: The right kidney measures 11 cm. The left kidney measurements 10.4 cm. Renal contour is a slightly lobular bilaterally. There is mild bilateral perinephric stranding. There is a well-defined low density area noted at the upper pole of the right kidney which measures 2.6 cm in diameter. This has Hounsfield units of 0 precontrast, and has Hounsfield units of approximately 10-15 postcontrast. A low density density exophytic cyst at the lower pole measures approximately 4.7 cm in maximum diameter. It has Hounsfield units of approximately 5 precontrast and approximately 9 postcontrast. There is a 1.7 cm low density in the posterior left kidney toward the lower pole which has Hounsfield units of 12 precontrast and 14 postcontrast. There is a 0.7 cm low density area at the lower pole of the left kidney. It is not well visualized on the precontrast images. It has Hounsfield units of approximately 10 following intravenous contrast administration. It is most consistent with a cyst. No cortical masses are demonstrated. There are no radiodense renal calculi. There are vascular calcifications in the bilateral kidneys. There is no hydronephrosis. There is incomplete filling of the distal ureters bilaterally, but the caliber of the ureters appears normal. BLADDER: The urinary bladder is decompressed. A Solo catheter is noted in position. There is an equivocal 1 cm area of increased density in the posterior bladder to the right of midline, which has contrast pooling around this region following urinary contrast excretion (images 75/97, series 2 and 75/97, series 5). GASTROINTESTINAL TRACT: The stomach and loops of small bowel appear normal. The appendix appears normal. There is moderate stool within the large bowel. There is mild diverticulosis of the descending and sigmoid colon. ABDOMINAL WALL: The study redemonstrates a fat-containing umbilical hernia, which measures 3.5 cm external to the abdominal cavity. It is well-defined. LYMPH NODES: No pelvic or abdominal lymphadenopathy is demonstrated. VASCULAR: There are atheromatous calcifications of the aorta and its branches. No aneurysms are demonstrated. PELVIC VISCERA: The prostate gland is at the upper limits of normal in size. There is no free fluid in the pelvis. OSSEOUS STRUCTURES: There are multilevel spondylitic changes in the lumbar spine with vacuum discs seen at L2-L3 and L5-S1. There are no acute osseous findings. IMPRESSION: 1. There is an equivocal 1 cm area of increased density in the posterior bladder to the right of midline, which has contrast pooling around this region following urinary contrast excretion. It may be consistent with a filling defect, and this could be further evaluated with cystogram or direct visualization. 2. There is a well-defined low density area at the upper pole of the right kidney which measures 2.6 cm in diameter. Precontrast, it has Hounsfield units of 0, which increase to 10-15 following intravenous contrast. It is most consistent with a renal cyst. There is a 4 cm exophytic cyst at the lower pole of the right kidney which measures 4.7 cm in diameter. There are 1.7 cm and 0.7 cm cysts in the lower left kidney. No cortical masses are demonstrated. 3. The ureters are not distended. There is no hydronephrosis. There are no radiodense renal calculi. 4. The study redemonstrates the severe emphysematous changes in the lower zones of the lungs bilaterally. 5. There is diverticulosis without evidence of acute diverticulitis. 6. There is cholelithiasis without evidence of acute cholecystitis.
[2018-07-22 17:14] VITALS: BP 124/98
[2018-07-22 21:58] VITALS: BP 105/54
[2018-07-23 06:42] VITALS: BP 118/60
--- NOTE | 2018-07-23 07:33 | PN- Housestaff ---
See Addendum Subjective Follow-up For: Gross hematuria Subjective: Afebrile overnight. Patient is seen and examined in bed. Patient denies any acute events overnight. Patient states this morning that he is feeling ok and that his pain only comes when passing urinary clots. Patient now states the pain is only a 2 out of 10 in genital region. Patient is still producing bright red blood in his mares bag. Patient otherwise denies any fever, chills, fatigue, abdominal pain, chest pain, diarrhea, and constipation. Review of Systems Constitutional: Reports: see HPI. Objective Last 24 Hrs of Vital Signs/I&O Vital Signs Date Time Temp Pulse Resp B/P B/P Pulse O2 O2 Flow FiO2 Mean Ox Delivery Rate 07/23 0642 98.0 79 20 118/60 92 Nasal 2.0L Cannula 07/23 0000 93 Nasal 2.0L Cannula 07/22 2158 98.5 75 18 105/54 92 Nasal 2.0L Cannula 07/22 1714 97.5 69 18 124/98 93 Nasal 2.0L Cannula 07/22 1600 Nasal 2.0L Cannula 07/22 1400 92 Nasal 2.0L Cannula Intake & Output 07/23 1600 07/23 0800 07/23 0000 Intake Total 1240 1040 Output Total 1500 1400 Balance -260 -360 Intake, IV 1000 500 Intake, Oral 240 540 Output, Urine 1500 1400 Physical Exam General Appearance: Alert, Oriented X3, Cooperative, No Acute Distress, Mares in place, bag contains blood clots and blood tinged urine Skin: No Rashes, No Breakdown HEENT: Atraumatic Neck: Supple, No JVD Cardiovascular: Regular Rate, Normal S1, Normal S2 Lungs: Clear to Auscultation Abdomen: Soft, No Tenderness Extremities: No Edema, Normal Pulses Assessment/Plan Assessment: 73 y/o M with PMH of HTN, DM, emphysema, hematuria for over 3 years, had an extensive workup last year including cystoscopy, bladder biopsy without any positive findings who presented to the ED c/o o difficulty urinating that started 1 week ago and got progressively worse until when he was not able to pass urine. Of note, during his ED stay, EKG showed ST segment depressions involving leads V2 to V6. Subsequently, Dr. Estevez was informed who recommended ICU admission and transfusion for further monitoring. Patient received 1U PRBC. He also received one dose of ceftriaxone in ED, considering WBC in urine and nitites. ASSESSMENT #[id number] anemia 2/2 chronic hematuria, s/p 3U PRBCs. #Chronic gross hematuria, etiology unclear #Leukocytosis #EKG Changes #Acute hypoxic respiratory failure, on 2L NC #Constipation #CKD Stage III #H/o HTN/HLD #H/o diabetes #Acute on chronic anemia s/p 3U PRBC. H/H today with a drop from 9.3 to 8.4. This is most likely 2/2 ongoing chronic hematuria. Patient received 1 unit PRBC on 07/21/2018 per recommendations of urology. -Keep his hemoglobin above 8.5 -Follow H&H daily #Gross hematuria:Prior extensive workup did not pinpoint clear etiology, unsure of etiology during this admission. -Continue CBI, patient is continuing to pass clots. Will attempt CBI clamp trial once patient stopping passing hematuria and clots. -Avoid aspirin and heparin. -Continue finasteride 5 mg daily -Patient underwent cystoscopy today which was negative for latter lesions or tumors as his source of his bleeding. Urology recommends a CT scan with IV contrast or MRI to determine the etiology. #Leukocytosis: WBC have normalized, off abx. Pulmonary vs Urinary in etiology; he is requiring oxygen use to mantain saturation. UA did also show positive nitritis, bacteria and WBC. Afebrile so far in this admission. CXR showed improved bibasilar opacities from prior study. Repeat UA on 07/20/18 does not show nitrites or WBC but does note bacteria. Repeat chest x-ray on 07/21/18 shows interval decrease in bibasilar airspace opacities as compared to prior study. Resolved on 07/22/18, was not treated with ABx, seems to be reactive changes. -continue to monitor trend #EKG changes: -Patient had EKG changes, ST segment and T wave inversion in V2 to V with negative trops x5, echo showed EF of 60%. -Cardiology recommended cardiac cath after stabilization to rule out ischemia. -Not a candidate for anticoagulation at this time due to hematuria. #Acute hypoxic respiratory failure: Patient has bibasilar opacities possibly due to atelectasis as he remained afebrile though now improving as per latest CXR. Patient has history of emphysema and his morbid obesity are also contributing factors. Will get chest CT to evaluate for acute pulm pathology. -pt still on oxygen, today's at 2.0 L of oxygen -Chest CT on 07/21/2018 shows advanced emphysematous changes of the lung, no acute abnormality -Continue incentive spirometry -Wean off oxygen as tolerated keeping his oxygen saturation above 92%. Patient does not use oxygen at home. Constipation: -Daily MiraLAX and bisacodyl History of chronic kidney disease stage III:On admission, Cr was 1.5, which may be close and new baseline. -Creatinine level level has been function fluctuating between 1.2-1.4 over the past 4 days. History of hypertension and hyperlipidemia: -Continue Lipitor -continue on atenolol History of diabetes: -Accu-Cheks, his fasting blood sugar level is 260 this morning. -Insulin NovoLog according to sliding scale -Hold metformin while patient in the hospital. DVTprophylaxis: Mechanical only CODE STATUS: Full code Diet: Consistent carbohydrate 3 Problem List: 1. Hematuria Pain Ratin Pain Location: na Pain Goal: Remain pain free Pain Plan: na Tomorrow's Labs & Rationales: routine
[2018-07-23 08:31] LABS: ABSOLUTE BASOPHIL COUNT 0 /CUMM (0.0-0.2); ABSOLUTE EOSINOPHIL COUNT 0.2 /CUMM (0.0-0.7); ABSOLUTE GRANULOCYTE CT 8.5 /CUMM (1.4-6.5); ABSOLUTE LYMPH COUNT 1.3 /CUMM (1.2-3.4); ABSOLUTE MONOCYTE COUNT 1.2 /CUMM (0.10-0.60); BASOPHIL % 0.4 % (0.0-2.0); EOSINOPHIL % 2.2 % (0-5); GRANULOCYTE % 75.5 % (42.2-75.2); HEMATOCRIT 27.5 % (42-52); MEAN CORPUSCULAR HGB 29.1 PG (27.0-31.0); MEAN CORPUSCULAR HGB CONC 32.3 G/DL (33.0-37.0); MEAN CORPUSCULAR VOLUME 90.1 FL (80.0-94.0); MEAN PLATELET VOLUME 8.3 FL (7.4-10.4); PLATELET COUNT 213 /CUMM (130-400); RBC DISTRIBUTION WIDTH 16.2 % (11.5-14.5); RED BLOOD CELL CT 3.05 /CUMM (4.70-6.10); WHITE BLOOD CELL COUNT 11.3 /CUMM (4.8-10.8)
[2018-07-23 14:54] VITALS: BP 110/57
[2018-07-23 23:38] VITALS: BP 112/56
[2018-07-24 06:41] VITALS: BP 150/74
--- NOTE | 2018-07-24 07:56 | PN- Housestaff ---
Yousif Rosales 07/24/18 0756: Subjective Follow-up For: Gross hematuria Subjective: I visited and examined the patient this morning, he was sitting in his chair next to his bed, alert and oriented 3, in no acute distress. He was febrile overnight. He is still passing urinary clots. He has complaints about minimal lower abdominal pain and pressure. He also complains about last night sleep which was not removed. Otherwise no other complaints about chest pain, lightheadedness, dizziness, shortness of breath, fever, chills, or sweating. Review of Systems Constitutional: Reports: see HPI. Objective Last 24 Hrs of Vital Signs/I&O Vital Signs Date Time Temp Pulse Resp B/P B/P Pulse O2 O2 Flow FiO2 Mean Ox Delivery Rate 07/24 0910 72 140/50 07/24 0800 92 Nasal 2.0L Cannula 07/24 0641 98.2 88 20 150/74 94 Nasal 2.0L Cannula 07/24 0000 Nasal 2.0L Cannula 07/23 2338 97.8 76 20 112/56 95 Nasal 2.0L Cannula 07/23 1600 Nasal 2.0L Cannula 07/23 1454 97.4 71 17 110/57 90 Room Air Intake & Output 07/24 1600 07/24 0800 07/24 0000 Intake Total 750 480 Output Total 1240 1999 Balance -1240 -1250 480 Intake, IV 750 Intake, Oral 480 Output, Urine 1240 1999 Physical Exam General Appearance: Alert, Oriented X3, Cooperative, No Acute Distress Skin: No Rashes Sepsis Skin Exam (color): Normal for Ethnicity HEENT: Atraumatic Cardiovascular: Regular Rate, Normal S1, Normal S2 Lungs: Clear to Auscultation, Normal Air Movement Abdomen: Normal Bowel Sounds, Soft, No Tenderness Assessment/Plan Assessment: 73 y/o M with PMH of HTN, DM, emphysema, hematuria for over 3 years, had an extensive workup last year including cystoscopy, bladder biopsy without any positive findings who presented to the ED c/o o difficulty urinating that started 1 week ago and got progressively worse until when he was not able to pass urine. Of note, during his ED stay, EKG showed ST segment depressions involving leads V2 to V6. Subsequently, Dr. Estevez was informed who recommended ICU admission and transfusion for further monitoring. Patient received 1U PRBC. He also received one dose of ceftriaxone in ED, considering WBC in urine and nitites. ASSESSMENT #[id number] anemia 2/2 chronic hematuria, s/p 3U PRBCs. #Chronic gross hematuria, etiology unclear #Leukocytosis #EKG Changes #Acute hypoxic respiratory failure, on 2L NC #Constipation #CKD Stage III #H/o HTN/HLD #H/o diabetes #Acute on chronic anemia s/p 3U PRBC. H/H today with a drop from 9.3 to 8.4. This is most likely 2/2 ongoing chronic hematuria. Patient received 1 unit PRBC on 07/21/2018 per recommendations of urology. -Keep his hemoglobin above 8.5 -Follow H&H daily #Gross hematuria:Prior extensive workup did not pinpoint clear etiology, unsure of etiology during this admission. On July 24, he was is still passing clots. -Continue CBI, patient is continuing to pass clots. Will attempt CBI clamp trial once patient stopping passing hematuria and clots. -Avoid aspirin and heparin. -Continue finasteride 5 mg daily -Patient underwent cystoscopy today which was negative for latter lesions or tumors as his source of his bleeding. Urology recommends a CT scan with IV contrast or MRI to determine the etiology. #Leukocytosis: WBC have normalized, off abx. Pulmonary vs Urinary in etiology; he is requiring oxygen use to mantain saturation. UA did also show positive nitritis, bacteria and WBC. Afebrile so far in this admission. CXR showed improved bibasilar opacities from prior study. Repeat UA on 07/20/18 does not show nitrites or WBC but does note bacteria. Repeat chest x-ray on 07/21/18 shows interval decrease in bibasilar airspace opacities as compared to prior study. Resolved on 07/22/18, was not treated with ABx, seems to be reactive changes. -continue to monitor trend #EKG changes: -Patient had EKG changes, ST segment and T wave inversion in V2 to V with negative trops x5, echo showed EF of 60%. -Cardiology recommended cardiac cath after stabilization to rule out ischemia. -Not a candidate for anticoagulation at this time due to hematuria. #Acute hypoxic respiratory failure: Patient has bibasilar opacities possibly due to atelectasis as he remained afebrile though now improving as per latest CXR. Patient has history of emphysema and his morbid obesity are also contributing factors. Will get chest CT to evaluate for acute pulm pathology. -pt still on oxygen, today's at 2.0 L of oxygen -Chest CT on 07/21/2018 shows advanced emphysematous changes of the lung, no acute abnormality -Continue incentive spirometry -Wean off oxygen as tolerated keeping his oxygen saturation above 92%. Patient does not use oxygen at home. Constipation: -Daily MiraLAX and bisacodyl History of chronic kidney disease stage III:On admission, Cr was 1.5, which may be close and new baseline. -Creatinine level level has been function fluctuating between 1.2-1.4 over the past 4 days. History of hypertension and hyperlipidemia: -Continue Lipitor -continue on atenolol History of diabetes: -Accu-Cheks, his fasting blood sugar level is 260 this morning. -Insulin NovoLog according to sliding scale -Hold metformin while patient in the hospital. DVTprophylaxis: Mechanical only CODE STATUS: Full code Diet: Consistent carbohydrate 3 Problem List: 1. Hematuria Pain Ratin Pain Location: Lower abdomen, suprapubic Pain Goal: Pain 4 or less Pain Plan: I think pain pathway Tomorrow's Labs & Rationales: As indicated Ildefonso Bhakta MD 07/24/18 1312: Attending MD Review Statement Attending Statement Attending MD Statement: examined this patient, discuss w/resident/PA/HOLLOW TILE PARTITION ERECTOR, agreed w/resident/PA/HOLLOW TILE PARTITION ERECTOR, reviewed EMR data (avail), discussed with nursing, amended to note Attending Assessment/Plan: Patient seen and examined. Resting comfortably not in acute distress. No complaints. Solo catheter continues to drain gross hematuria. Nursing staff reports need for regular flushing of the Solo catheter as it continues to get clogged with clots. Hemoglobin level is noted to be trending down slowly. Patient had cystoscopy on Wednesday withclot and bladder stone evacuation, fulguration of bladder neck and resection of friable prostate. The right ureteral orifice effluxed grossly bloody urine several times. Ct scan post procedure did not reveal an etiology. Problems: 1. Acute Blood Loss Anemia. 2. Persistent Hematuria. 3. Advanced COPD 4. CKD III 5. Ischemic Changes on EKG. Recommendations: -Urology follow up regarding the persistent hematuria. -Continue to monitor H/H. -Cardiology follow up prior to discharge regarding further ischemic work-up. -Continue his newly started COPD regimen upon discharge.
[2018-07-24 08:35] LABS: ABSOLUTE BASOPHIL COUNT 0 /CUMM (0.0-0.2); ABSOLUTE EOSINOPHIL COUNT 0.1 /CUMM (0.0-0.7); ABSOLUTE GRANULOCYTE CT 7.6 /CUMM (1.4-6.5); ABSOLUTE LYMPH COUNT 1.3 /CUMM (1.2-3.4); ABSOLUTE MONOCYTE COUNT 0.5 /CUMM (0.10-0.60); BASOPHIL % 0.4 % (0.0-2.0); EOSINOPHIL % 1.6 % (0-5); GRANULOCYTE % 79.2 % (42.2-75.2); HEMATOCRIT 25.7 % (42-52); MEAN CORPUSCULAR HGB 29.3 PG (27.0-31.0); MEAN CORPUSCULAR HGB CONC 32.3 G/DL (33.0-37.0); MEAN CORPUSCULAR VOLUME 90.6 FL (80.0-94.0); MEAN PLATELET VOLUME 8.4 FL (7.4-10.4); PLATELET COUNT 204 /CUMM (130-400); RED BLOOD CELL CT 2.84 /CUMM (4.70-6.10); WHITE BLOOD CELL COUNT 9.6 /CUMM (4.8-10.8)
[2018-07-24 14:15] VITALS: BP 130/55
[2018-07-24 21:30] VITALS: BP 110/58
--- NOTE | 2018-07-25 05:51 | Event Note ---
Event Note Event Note: CBI mares not functionin73 year old male with PMH HTN, DM, hematuria for 3 years admitted for hematuria and inability to void. Patient underwent cystoscopy, clot and bladder stone evacuation, fulgaration of bladder neck and resection of friable prostate with Dr. Steward on 07/15/18. Patient has had multiple clots with CBI in place and having to be replaced after becoming clogged with blood clots. I was notified by RN that mares was no longer functional at around 02:00. Nursing staff attempted to flush mares multiple times without success. CBI was turned off and I attempted to flush mares. This was unsuccessful with multiple attempts. Patient was in increasing pain so Morphine 4mg was given. Patient is on high dose OxyContin 40mg bid so morphine did not relieve pain. I decided to give him Dilaudid 2mg IV one time dose. This eased his pain and I removed the mares. Patient stood up and attempted to void. He immediately passed a blood clot and felt better. No significan amount of urine was excreted. Bladder scan showed approximately 250cc in urinary bladder. Plan: -Will leave mares out at this time as patient is very difficult mares placement -Monitor with bladder scan Q3 hours and contact MD for volume >350cc -Will notify day team of overnight events and need to contact Urology if patient unable to void for further recs. -Appreciate team effort in care of this patient
[2018-07-25 06:29] VITALS: BP 126/62
--- NOTE | 2018-07-25 07:53 | PN- Housestaff ---
See Addendum Subjective Follow-up For: Gross hematuria Subjective: Afebrile overnight. Patient is seen and examined in bed. Patient is on 2 L NC oxygen and this morning states he has been having difficulty with urination. Patient had his mares removed last night due to clot formation and since then patient notes increasing pain in his penis due to inability to void properly. Patient states his pain in the groin area is 6 out of 10 this morning. Patient states he has gone to the bathroom multiple times but only produces scant urine with mostly blood and clots coming out. Patient otherwise denies any diarrhea, constipation, chest pain, n/v, and dizziness. Review of Systems Constitutional: Reports: see HPI. Objective Last 24 Hrs of Vital Signs/I&O Vital Signs Date Time Temp Pulse Resp B/P B/P Pulse O2 O2 Flow FiO2 Mean Ox Delivery Rate 07/25 1400 98.7 85 20 138/81 95 Nasal 2.0L Cannula 07/25 0810 75 126/62 07/25 0800 Nasal Cannula 07/25 0629 97.4 75 20 126/62 94 07/25 0000 94 Nasal 2.0L Cannula 07/24 2130 97.8 78 20 110/58 92 Nasal 2.0L Cannula Intake & Output 07/25 1600 07/25 0800 07/25 0000 Intake Total 550 120 600 Output Total 174 09 5012 Balance 400 70 -590 Intake, IV 500 Intake, Oral 550 120 100 Number 0 Bowel Movements Output, Urine 756 37 8266 Physical Exam General Appearance: Alert, Oriented X3, Cooperative, Moderate Distress, pt. in mod distress due to inability to properly void & producing urinary clots when voiding Skin: No Rashes, No Breakdown HEENT: Atraumatic Neck: Supple, No JVD Cardiovascular: Regular Rate, Normal S1, Normal S2 Lungs: Clear to Auscultation Neurological: Normal Speech Extremities: No Edema, Normal Pulses Assessment/Plan Assessment: 73 y/o M with PMH of HTN, DM, emphysema, hematuria for over 3 years, had an extensive workup last year including cystoscopy, bladder biopsy without any positive findings who presented to the ED c/o o difficulty urinating that started 1 week ago and got progressively worse until when he was not able to pass urine. Of note, during his ED stay, EKG showed ST segment depressions involving leads V2 to V6. Subsequently, Dr. Estevez was informed who recommended ICU admission and transfusion for further monitoring. Patient received 1U PRBC. He also received one dose of ceftriaxone in ED, considering WBC in urine and nitites. #Acute on chronic anemia s/p 3U PRBC. H/H today with a drop from 9.3 to 8.4. This is most likely 2/2 ongoing chronic hematuria. Patient received 1 unit PRBC on 07/21/2018 per recommendations of urology. -Keep his hemoglobin above 8.5 -Follow H&H daily #Gross hematuria:Prior extensive workup did not pinpoint clear etiology, unsure of etiology during this admission. On July 24, he was is still passing clots. -Continue CBI, patient is continuing to pass clots. Will attempt CBI clamp trial once patient stopping passing hematuria and clots; CBI with three-way mares dc'd after pt. experiencing intense pain with inability to void overnight, urology consulted and took patient to OR on 07/25 for cystoscopy and placement of 3-way mares -Avoid aspirin and heparin. -Continue finasteride 5 mg daily -Patient underwent cystoscopy prior which was negative for latter lesions or tumors as his source of his bleeding. #Leukocytosis: WBC have normalized, off abx. Pulmonary vs Urinary in etiology; he is requiring oxygen use to mantain saturation. UA did also show positive nitritis, bacteria and WBC. Afebrile so far in this admission. CXR showed improved bibasilar opacities from prior study. Repeat UA on 07/20/18 does not show nitrites or WBC but does note bacteria. Repeat chest x-ray on 07/21/18 shows interval decrease in bibasilar airspace opacities as compared to prior study. Resolved on 07/22/18, was not treated with ABx, seems to be reactive changes. -continue to monitor trend #EKG changes: -Patient had EKG changes, ST segment and T wave inversion in V2 to V with negative trops x5, echo showed EF of 60%. -Cardiology recommended cardiac cath after stabilization to rule out ischemia. -Not a candidate for anticoagulation at this time due to hematuria. #Acute hypoxic respiratory failure: Patient has bibasilar opacities possibly due to atelectasis as he remained afebrile though now improving as per latest CXR. Patient has history of emphysema and his morbid obesity are also contributing factors. Will get chest CT to evaluate for acute pulm pathology. -pt still on oxygen, today's at 2.0 L of oxygen -Chest CT on 07/21/2018 shows advanced emphysematous changes of the lung, no acute abnormality -Continue incentive spirometry -Wean off oxygen as tolerated keeping his oxygen saturation above 92%. Patient does not use oxygen at home. Constipation: -Daily MiraLAX and bisacodyl History of chronic kidney disease stage III:On admission, Cr was 1.5, which may be close and new baseline. -Creatinine level level has been function fluctuating between 1.2-1.4 over the past 4 days. History of hypertension and hyperlipidemia: -Continue Lipitor -continue on atenolol History of diabetes: -Accu-Cheks -Insulin NovoLog according to sliding scale -Hold metformin while patient in the hospital. DVT PPx. FC Problem List: 1. Hematuria Pain Ratin Pain Location: groin area Pain Goal: Pain 7 or less Pain Plan: prn pain meds Tomorrow's Labs & Rationales: routine
[2018-07-25 08:56] LABS: ABSOLUTE BASOPHIL COUNT 0 /CUMM (0.0-0.2); ABSOLUTE EOSINOPHIL COUNT 0.1 /CUMM (0.0-0.7); ABSOLUTE GRANULOCYTE CT 8.7 /CUMM (1.4-6.5); ABSOLUTE LYMPH COUNT 0.8 /CUMM (1.2-3.4); ABSOLUTE MONOCYTE COUNT 0.9 /CUMM (0.10-0.60); BASOPHIL % 0.1 % (0.0-2.0); EOSINOPHIL % 1.1 % (0-5); GRANULOCYTE % 82.6 % (42.2-75.2); MEAN CORPUSCULAR HGB 28.5 PG (27.0-31.0); MEAN CORPUSCULAR HGB CONC 32.1 G/DL (33.0-37.0); MEAN CORPUSCULAR VOLUME 88.8 FL (80.0-94.0); MEAN PLATELET VOLUME 8.3 FL (7.4-10.4); PLATELET COUNT 225 /CUMM (130-400); RBC DISTRIBUTION WIDTH 15.9 % (11.5-14.5); RED BLOOD CELL CT 2.82 /CUMM (4.70-6.10); WHITE BLOOD CELL COUNT 10.5 /CUMM (4.8-10.8)
--- NOTE | 2018-07-25 12:18 | PN- Urology ---
Surgical Brief Attending Note Brief Attending Note: Mares did not drain well last PM and was removed. Patient now unable to void. Unable to place mares at bedside. Plan: 1. To OR this afternoon for cysto, clot evac, fulgeration of bleeding and mares placement 2. With next blood draw please repeat PT, INR and PTT. Last PTT was elevated at 50. If confirmed to be elevated this will need further evaluation and tx in view of the ongoing hematuria
[2018-07-25 14:00] VITALS: BP 138/81
[2018-07-25 14:56] LABS: PT 15.2 SEC (9.4-12.5); PTT 44 SEC (25-37)
--- NOTE | 2018-07-25 16:20 | PN- Pulmonary ---
Subjective HPI/Critical Care Issues: Has ongoing bladder issues to the or today Objective Current Medications: Current Medications Sig/Dolores Start time Last Medication Dose Route Stop Time Status Admin Albuterol Sulfate 3 ML BID 07/21 2100 AC INH Albuterol Sulfate 3 ML Q6 PRN 07/21 0830 AC INH Atenolol 25 MG DAILY 07/21 0800 AC 07/25 PO 0810 Atorvastatin Calcium 20 MG 1700 07/16 1700 AC 07/24 PO 1804 Bisacodyl 5 MG DAILY 07/19 0900 AC 07/25 PO 0819 Budesonide/ 2 PUF BID 07/21 0900 AC 07/25 Formoterol Fumarate INH 0810 Calcium Carbonate 500 MG DAILY 07/19 1049 AC 07/25 PO 0809 Dextrose/Sodium 1,000 ML Q13H 07/25 1345 AC 07/25 Chloride IV 1403 Docusate Sodium 100 MG DAILY 07/21 1200 AC 07/25 PO 0810 Finasteride 5 MG DAILY 07/17 1145 AC 07/25 PO 0810 Guaifenesin 600 MG Q12 07/22 0900 AC 07/25 PO 0809 Hydromorphone HCl 2 MG ONCE PRN 07/25 1445 AC IV Hydromorphone HCl 2 MG ONCE PRN 07/25 1100 DC 07/25 IV 1053 Hydromorphone HCl 0 .STK-MED ONE 07/25 1054 DC .ROUTE Hydromorphone HCl 2 MG ONCE PRN 07/25 0400 DC 07/25 IV 0355 Hydromorphone HCl 0 .STK-MED ONE 07/25 0350 DC .ROUTE Insulin Aspart 0 TIDAC 07/16 0800 DC 07/25 SC 1242 Insulin Human Regular 0 Q6 07/25 1337 AC SC Ipratropium King 2.5 ML BID 07/21 2100 AC INH Ketamine HCl 0 .STK-MED ONE 07/25 1520 DC .ROUTE Morphine Sulfate 4 MG ONCE ONE 07/25 0300 DC 07/25 IV 07/25 0301 0258 Morphine Sulfate 0 .STK-MED ONE 07/25 0258 DC .ROUTE Omeprazole 40 MG DAILY AC 07/18 1622 AC 07/25 PO 0525 Ondansetron HCl 4 MG Q6-PRN PRN 07/21 1200 AC 07/24 PO 2246 Oxycodone HCl 40 MG BID 07/15 2254 AC 07/25 PO 0820 Patient Medication 1 ED ONE ONE 07/25 0930 DC Teaching ED 07/25 0931 Polyethylene Glycol 17 GM DAILY 07/19 0900 AC 07/25 PO 0810 Sodium Chloride 1,000 ML Q8H 07/22 1500 DC 07/24 IV 2332 Tiotropium King 1 PUF DAILY 07/22 1300 AC 07/25 INH 0811 Vital Signs & I&O Last 24 Hrs of Vitals and I&O: Vital Signs Date Time Temp Pulse Resp B/P B/P Pulse O2 O2 Flow FiO2 Mean Ox Delivery Rate 07/25 1400 98.7 85 20 138/81 95 Nasal 2.0L Cannula 07/25 0810 75 126/62 07/25 0800 Nasal Cannula 07/25 0629 97.4 75 20 126/62 94 07/25 0000 94 Nasal 2.0L Cannula 07/24 2130 97.8 78 20 110/58 92 Nasal 2.0L Cannula Intake & Output 07/25 1600 07/25 0800 07/25 0000 Intake Total 550 120 600 Output Total 705 66 4672 Balance 400 70 -590 Intake, IV 500 Intake, Oral 550 120 100 Number 0 Bowel Movements Output, Urine 482 02 7611 Impression/Plan Impression/Plan Impression/Plan: CT chest IMPRESSION: There is advanced emphysematous changes of lung. No acute abnormality. DICTATED BY: Jeff Echols MD DATE/TIME DICTATED:07/21/182102 ECHO CONCLUSIONS 1. Normal EF of 60% with moderate posterior wall hypokinesis and impaired LV relaxation. 2. Moderate left atrial enlargement. 3. Trace mitral regurgitation. 4. Moderate tricuspid regurgitation. 5. Mild pulmonic regurgitation. 6. Trace aotic insufficiency. 7. Moderate to severe pulmonary hypertension. General Appearance: well developed/nourished, no apparent distress, alert, awake Head: atraumatic Neck: normal inspection, supple Respiratory: normal breath sounds, chest non-tender Cardiovascular: regular rate/rhythm Gastrointestinal: soft, non-tender Extremities: B/L pedal edema grade 1 with chronic venous changes., b/l statis dematitis Neurologic/Psych: awake, alert, oriented x 3 IMPRESSION This is a gentleman who usually gets his care at [facility] with recurrent hematuria with prior workup apparently negative ongoing on and off for one yr, COPD hypertension diabetes, came into the emergency room because he had significant hematuria. Subsequently was noted to have diffuse EKG changes in the lateral leads. 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 NO sig bronchospasm or cough * Significant hematuria and blood loss anemia now s/p transfusions with ongoing hematuria going to the OR * Significant EKG changes, no significant pain patient has diabetes however. So far troponin is not significantly elevated/ echo no wall motion abnormality with diastolic disease * CKD tage 2 chronic renal failure * Diabetes, hypertension hyperlipidemia * RECOMMENDATION Nebs with albuterol neb bid prn and spiriva one puff daily Incentive spirometry Patient is not a candidate for anticoagulation due to gross hematuria Will follow prn
--- NOTE | 2018-07-25 17:06 | RADIOLOGY REPORT ---
EXAMINATION: Intraoperative fluoroscopy CLINICAL INFORMATION: Right ureteroscopy COMPARISON: CT abdomen pelvis 07/22/2018 TECHNIQUE: Intraoperative fluoroscopy was provided for use by Dr. Lai. A total of 17 images were saved to PACS. A radiologist was not present during imaging. TOTAL FLUOROSCOPIC TIME: 55 seconds FINDINGS\E\IMPRESSION: Intraoperative fluoroscopy provided for use by Dr. Lai. Please see operative note for detailed findings.
[2018-07-25 18:30] VITALS: BP 116/65
[2018-07-25 22:43] VITALS: BP 116/61
--- NOTE | 2018-07-26 07:04 | PN- Housestaff ---
Mary Kate Mcnair 07/26/18 0704: Subjective Follow-up For: Gross hematuria Subjective: Patient seen and examined at [facility] this morning. He is currently saturating well on 2L NC at 93%. Patient is status post cystoscopy by Dr. Lai with mares catheter in place. Mares continues to produce blood after CBI. Review of Systems Constitutional: Denies: see HPI. Objective Last 24 Hrs of Vital Signs/I&O Vital Signs Date Time Temp Pulse Resp B/P B/P Pulse O2 O2 Flow FiO2 Mean Ox Delivery Rate 07/26 0816 74 123/64 07/26 0800 94 Nasal 2.0L Cannula 07/26 0727 97.9 71 20 113/62 93 Nasal 2.0L Cannula 07/26 0000 Nasal 2.0L Cannula 07/25 2243 97.9 67 20 116/61 94 Nasal 2.0L Cannula 07/25 1830 Nasal 2.0L Cannula 07/25 1830 98.0 65 18 116/65 95 Nasal 2.0L Cannula 07/25 1400 98.7 85 20 138/81 95 Nasal 2.0L Cannula Intake & Output 07/26 1600 07/26 0800 07/26 0000 Intake Total 640 830 Output Total 450 Balance 640 380 Intake, IV 400 350 Intake, Oral 240 480 Number 0 Bowel Movements Output, Urine 450 Physical Exam General Appearance: Alert, Oriented X3, Cooperative HEENT: PERRLA, EOMI, Mucous Membr. moist/pink Cardiovascular: Regular Rate, Normal S1, Normal S2 Lungs: Clear to Auscultation, Normal Air Movement Abdomen: Soft, No Masses, tender to palpation Extremities: No Clubbing, No Cyanosis, No Edema Vascular: Normal Pulses, Pulses Symmetrical Current Medications: Current Medications Sig/Dolores Start time Last Medication Dose Route Stop Time Status Admin Albuterol Sulfate 3 ML BID 07/21 2100 AC INH Albuterol Sulfate 3 ML Q6 PRN 07/21 0830 AC INH Atenolol 25 MG DAILY 07/21 08 AC 07/26 PO 0816 Atorvastatin Calcium 20 MG 1700 07/16 1700 AC 07/24 PO 1804 Bisacodyl 5 MG DAILY 07/19 0900 AC 07/26 PO 0815 Budesonide/ 2 PUF BID 07/21 0900 AC 07/26 Formoterol Fumarate INH 0816 Calcium Carbonate 500 MG DAILY 07/19 1049 AC 07/26 PO 0839 Dextrose/Sodium 1,000 ML Q13H 07/25 1345 DC 07/25 Chloride IV 07/25 2000 1403 Docusate Sodium 100 MG DAILY 07/21 1200 AC 07/26 PO 0815 Finasteride 5 MG DAILY 07/17 1145 AC 07/26 PO 0815 Guaifenesin 600 MG Q12 07/22 0900 AC 07/26 PO 0839 Hydromorphone HCl 2 MG ONCE PRN 07/25 1445 AC IV Insulin Aspart 0 TIDAC 07/26 0015 AC 07/26 SC 0817 Insulin Aspart 0 TIDAC 07/16 0800 DC 07/25 SC 1242 Insulin Human Regular 0 Q6 07/25 1337 DC 07/25 SC 1951 Ipratropium [place] 2.5 ML BID 07/21 2100 AC INH Ketamine HCl 0 .STK-MED ONE 07/25 1520 DC .ROUTE Omeprazole 40 MG DAILY AC 07/18 1622 AC 07/26 PO 0505 Ondansetron HCl 4 MG Q6-PRN PRN 07/21 1200 AC 07/24 PO 2246 Oxycodone HCl 40 MG BID 07/15 2254 AC 07/26 PO 0815 Polyethylene Glycol 17 GM DAILY 07/19 0900 AC 07/26 PO 0816 Potassium Chloride 20 MEQ Q20H 07/25 1900 AC 07/25 Dextrose/Sodium 1,000 ML IV 2028 Chloride Tiotropium [place] 1 PUF DAILY 07/22 1300 AC 07/26 INH 0839 Last 24 Hrs of Lab/Shaheed Results Last 24 Hrs of Labs/Mics: Laboratory Tests 07/25/18 1436: PT 15.2 H, INR 1.39 H, APTT 44 H Microbiology 07/25 1540 URINE ROUT: Urine Culture - RES GRAM POSITIVE COCCI Assessment/Plan Assessment: 73 year old male with PMH of HTN, DM, emphysema, hematuria for over 3 years, had an extensive workup last year including cystoscopy, bladder biopsy without any positive findings who presented to the ED for complaint of difficulty urinating that started 1 week prior to admission and got progressively worse until when he was not able to pass urine. Of note, during his ED stay, EKG showed ST segment depressions involving leads V2 to V6. Subsequently, Dr. Estevez was informed who recommended ICU admission and transfusion for further monitoring. Patient received 1U PRBC. He also received one dose of ceftriaxone in ED, considering WBC in urine and nitrites. Seen by Urology Dr. Lai with procedure in OR to replace mares and clot extraction. INR elevation noted will follow. 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 Followed by Dr. Lai. Continuing CBI and daily labs. Possible right nephrectomy in future. Gross Hematuria -Urology consulted and took patient to OR on 07/25 for cystoscopy and placement of 3-way mares -Patient went for repeat cystoscopy that demonstrated bleeding from Transitional Cell CA in Right Kidney. * Continue CBI for now * Daily Labs; Hgb 8.0 07/25/18 * May need right nephrectomy in future * Avoid aspirin/anticoagulation given bleeding * Follow up coags given increased INR EKG Changes on Admission -Patient had EKG changes, ST segment and T wave inversion in V2 to V with negative trops x5, echo showed EF of 60%. Cardiology recommended cardiac cath after stabilization to rule out ischemia. * Not a candidate for anticoagulation at this time due to hematuria. * Cardiology following patient History of chronic kidney disease stage III: On admission, Cr was 1.5, which may be close and new baseline. * Creatinine level level recently 1.5 from 1.2 * Continue to monitor daily History of hypertension and hyperlipidemia: * Continue Lipitor * Continue on Atenolol History of diabetes: * Accu-Cheks * Insulin NovoLog according to sliding scale * Hold metformin while patient in the hospital DVT PPx: ALPS Full Code Problem List: 1. Hematuria Pain Ratin Pain Location: groin Pain Goal: Pain 4 or less Pain Plan: as per pain pathway Tomorrow's Labs & Rationales: cbc nickp Vinny Vicente MD 07/26/18 2141: Attending MD Review Statement Attending Statement Attending MD Statement: examined this patient, discuss w/resident/PA/ELECTRIC FURNACE OPERATOR, agreed w/resident/PA/ELECTRIC FURNACE OPERATOR, discussed with family, reviewed EMR data (avail), discussed with nursing, discussed with case mgmt, reviewed images, amended to note Attending Assessment/Plan: The patient was seen and discussed with house staff. Results of cysto noted with concern regarding transitional cell ca of renal pelvis. Unclear if this has been discussed with patient at this juncture. Pain significantly improved with CBI- still passing some clots and some blood. Will continue CBI. Taper oxygen as able. Appreciate Pulmonary follow-up. Family requesting information and will discuss further with them once clarified with urology.
--- NOTE | 2018-07-26 07:05 | Operative Report ---
Operative/Inv Procedure Report Surgery Date: 07/25/18 Name of Procedure: Cystoscopy, clot evacuation, fulguration of prostatic urethra, right ureteroscopy, right retrograde pyelogram Pre-Operative Diagnosis: Gross hematuria Post-Operative Diagnosis: Gross hematuria Estimated Blood Loss: 50ml to 100ml Surgeon/Appeals Representative: Ming Anesthesia: laryngeal mask airway Drains: 22 Vietnamese three-way hematuria catheter for continuous bladder irrigation Specimens: Urine culture and urine from right kidney for cytology Complications: None Condition: Stable Operative Indication: Intractable gross hematuria. The patient has had gross hematuria for 3 years and has been followed at the [facility]. Apparently according to the patient no source of the hematuria was seen. Recently was taken to the operating room by Dr. Steward where some oozing was seen from the prostatic urethra and this area was resected and fulgurated. There was also some bloody reflux in the right ureteral orifice. Subsequently CT IVP was performed. According to the report there were no significant upper tract findings. Patient continued to have gross hematuria. His Solo was removed and he could not void and could not be replaced on the floor and therefore is taken back to the operating room for irrigation of any clots and Solo placement. Also for an attempt to define the exact cause of the bleeding. Operative/Procedure Note Note: The patient was taken to the operating room and identified. He is placed in supine position on the cystoscopy table. A timeout was executed appropriately with the patient awake. General anesthesia was induced to LMA. He was then placed in the dorsolithotomy position. He was prepped and draped in usual fashion for cystoscopy. A 22 Vietnamese cystoscope sheath was placed into the bladder under direct vision using a 30 lens. Anterior urethra was normal. The prostatic urethra was partially obstructing. Upon entering the bladder blood clot was noted. The Relux evacuator was used to remove all blood clot from the bladder after the resectoscope and placed in the bladder. At this point the bladder was completely inspected. There was no evidence of bladder tumor. The ureteral orifices appeared normal. The area of the bladder neck and proximal prostatic urethra had been resected. There was minimal oozing from this area but this was not felt to be the cause of the gross hematuria. Bloody reflux was again seen from the right ureteral orifice. Therefore the resectoscope was removed and a 22 Vietnamese cystoscope sheath placed back into the bladder under direct vision using the 30 lens. An open ended catheter was placed into the right ureteral orifice and a right retrograde pyelogram performed. The ureter appeared normal. However this did appear to be a filling defect in the renal pelvis. Therefore guidewire was placed through the open-ended catheter which was subsequently removed. A double-lumen dilating catheter was placed over the wire and a second wire passed. Catheter was removed and the flexible ureteroscope advanced over 1 of the wires which was subsequently removed. There was bleeding noted from the right kidney. Although difficult to see with manual irrigation there was clearly transitional cell carcinoma in the right renal pelvis. This was fairly sizable. Some urine from the right kidney was taken for cytology. At this point the flexible ureteroscope was removed. No stent was left in place. A 22 Vietnamese three-way hematuria catheter was placed to continuous bladder irrigation begun. Patient tolerated the procedure reasonably well and was transferred to the recovery room in stable condition Findings: Filling defect in right renal pelvis on retrograde pyelogram. 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 Pictures were taken but no biopsy was taken Discharge Disposition: PACU
--- NOTE | 2018-07-26 07:19 | PN- Urology ---
Subjective Subjective: No acute distress Objective Vital Signs and I&Os Vital Signs Date Time Temp Pulse Resp B/P B/P Pulse O2 O2 Flow FiO2 Mean Ox Delivery Rate 07/26 0000 Nasal 2.0L Cannula 07/25 2243 97.9 67 20 116/61 94 Nasal 2.0L Cannula 07/25 1830 Nasal 2.0L Cannula 07/25 183 98.0 65 18 116/65 95 Nasal 2.0L Cannula 07/25 1400 98.7 85 20 138/81 95 Nasal 2.0L Cannula 07/25 0810 75 126/62 07/25 0800 Nasal Cannula Intake & Output 07/26 0800 07/26 0000 07/25 1600 07/25 0807/25 0000 07/24 1600 Intake Total 640 830 550 120 600 Output Total 450 150 50 810 2009 Balance 640 380 400 70 -210 -2009 Intake, IV 400 350 500 Intake, Oral 240 480 550 120 100 Number 0 0 Bowel Movements Output, Urine 450 150 50 810 2009 Abd: obese, soft, non tender Genitalia: 3-way mares in place. CBI running with pink drainage Laboratory Tests 07/25 1436 Coagulation PT (9.4 - 12.5 SEC) 15.2 H INR (0.90 - 1.17) 1.39 H APTT (25 - 37 SEC) 44 H Assessment/Plan Assessment/Plan Imp: 1. Gross hematuria. Procedure yesterday showed bleeding from transitional cell ca in R kidney 2. DM, HTN, COPD Plan: 1. continue CBI for now 2. May need R nephrectomy in future 3. Daily labs
[2018-07-26 07:27] VITALS: BP 113/62
--- NOTE | 2018-07-26 08:36 | Discharge Summary ---
Visit Information Visit Dates Admission Date: 07/15/18 Hospital Course Course Attending Physician: Vinny Vicente MD Primary Care Physician: Sangeetha RODRIGUEZRochelle [facility] Course: 73 y/o M with PMH of HTN, DM, emphysema, hematuria for over 3 years, had an extensive workup last year including cystoscopy, bladder biopsy without any positive findings who presented to the ED c/o o difficulty urinating that started 1 week ago and got progressively worse until when he was not able to pass urine. Of note, during his ED stay, EKG showed ST segment depressions involving leads V2 to V6. Subsequently, Dr. Estevez was informed who recommended ICU admission and transfusion for further monitoring. Patient received 1U PRBC. He also received one dose of ceftriaxone in ED, considering WBC in urine and nitites. #Acute on chronic anemia s/p 3U PRBC. H/H today with a drop from 9.3 to 8.4. This is most likely 2/2 ongoing chronic hematuria. Patient received 1 unit PRBC on 07/21/2018 per recommendations of urology. -Keep his hemoglobin above 8.5 -Follow H&H daily #Gross hematuria:Prior extensive workup did not pinpoint clear etiology, unsure of etiology during this admission. On July 24, he was is still passing clots. -Continue CBI, patient is continuing to pass clots. Will attempt CBI clamp trial once patient stopping passing hematuria and clots; CBI with three-way mares dc'd after pt. experiencing intense pain with inability to void overnight, urology consulted and took patient to OR on 07/25 for cystoscopy and placement of 3-way mares -Avoid aspirin and heparin. -Continue finasteride 5 mg daily -Patient underwent cystoscopy prior which was negative for latter lesions or tumors as his source of his bleeding. #Leukocytosis: WBC have normalized, off abx. Pulmonary vs Urinary in etiology; he is requiring oxygen use to mantain saturation. UA did also show positive nitritis, bacteria and WBC. Afebrile so far in this admission. CXR showed improved bibasilar opacities from prior study. Repeat UA on 07/20/18 does not show nitrites or WBC but does note bacteria. Repeat chest x-ray on 07/21/18 shows interval decrease in bibasilar airspace opacities as compared to prior study. Resolved on 07/22/18, was not treated with ABx, seems to be reactive changes. -continue to monitor trend #EKG changes: -Patient had EKG changes, ST segment and T wave inversion in V2 to V with negative trops x5, echo showed EF of 60%. -Cardiology recommended cardiac cath after stabilization to rule out ischemia. -Not a candidate for anticoagulation at this time due to hematuria. #Acute hypoxic respiratory failure: Patient has bibasilar opacities possibly due to atelectasis as he remained afebrile though now improving as per latest CXR. Patient has history of emphysema and his morbid obesity are also contributing factors. Will get chest CT to evaluate for acute pulm pathology. -pt still on oxygen, today's at 2.0 L of oxygen -Chest CT on 07/21/2018 shows advanced emphysematous changes of the lung, no acute abnormality -Continue incentive spirometry -Wean off oxygen as tolerated keeping his oxygen saturation above 92%. Patient does not use oxygen at home. Constipation: -Daily MiraLAX and bisacodyl History of chronic kidney disease stage III:On admission, Cr was 1.5, which may be close and new baseline. -Creatinine level level has been function fluctuating between 1.2-1.4 over the past 4 days. History of hypertension and hyperlipidemia: -Continue Lipitor -continue on atenolol History of diabetes: -Accu-Cheks -Insulin NovoLog according to sliding scale -Hold metformin while patient in the hospital. Allergies: Coded Allergies: NO KNOWN ALLERGIES (05/25/11) Significant Procedures: CT ABD/PELVIS - 1. There is an equivocal 1 cm area of increased density in the posterior bladder to the right of midline, which has contrast pooling around this region following urinary contrast excretion. It may be consistent with a filling defect, and this could be further evaluated with cystogram or direct visualization. 2. There is a well-defined low density area at the upper pole of the right kidney which measures 2.6 cm in diameter. Precontrast, it has Hounsfield units of 0, which increase to 10-15 following intravenous contrast. It is most consistent with a renal cyst. There is a 4 cm exophytic cyst at the lower pole of the right kidney which measures 4.7 cm in diameter. There are 1.7 cm and 0.7 cm cysts in the lower left kidney. No cortical masses are demonstrated. 3. The ureters are not distended. There is no hydronephrosis. There are no radiodense renal calculi. 4. The study redemonstrates the severe emphysematous changes in the lower zones of the lungs bilaterally. 5. There is diverticulosis without evidence of acute diverticulitis. 6. There is cholelithiasis without evidence of acute cholecystitis. Disposition Summary Disposition Principal Diagnosis: Gross hematuria Additional Diagnosis: Acute hypoxic respiratory failure Discharge Disposition: home or self care Discharge Instructions General Discharge Information Code Status: Full Code Patient's Diet: regular Patient's Activity: ad gilson Follow-Up Instructions/Appts: Please follow up with your PCP within one week. Please continue to take your home medications as required. Medications at Discharge Discharge Medications: Continue taking these medications: Atenolol (Atenolol) 25 MG TABLET 1 Tablet ORAL DAILY Comments: Last Taken:07/27/18 Time:45 Glipizide (Glipizide) 10 MG TABLET 1 Tablet ORAL TWICE DAILY Comments: NOT GIVEN IN HOSPITAL Metformin HCl (Metformin HCl ER) 500 MG TAB.ER.24H 2 Tablet ORAL Every Morning Qty = 90 Comments: NOT GIVEN IN HOSPITAL Lisinopril/Hydrochlorothiazide (Lisinopril-Hctz 20-12.5 MG Tab) (Unknown Strength) TABLET Unknown Dose ORAL DAILY Qty = 90 Comments: NOT GIVEN IN HOSPITAL Atorvastatin Calcium (Atorvastatin Calcium) (Unknown Strength) TABLET Unknown Dose ORAL As Directed Qty = 45 Comments: Last Taken:07/27/18 Time:45 Oxycodone HCl/Acetaminophen (Percocet 5-325 MG Tablet) 5 MG-325 MG TABLET 2 Tablet ORAL TWICE DAILY Comments: NOT GIVEN IN HOSPITAL Oxycodone HCl (Oxycontin) 40 MG TAB.ER.12H 1 Tablet ORAL TWICE DAILY Comments: Last Taken:07/27/18 Time:45 Ferrous Sulfate (Ferrous Sulfate) 325 MG (65 MG IRON) TABLET 1 Tablet ORAL TWICE DAILY Comments: NOT GIVEN IN HOSPITAL Start taking the following new medications: Budesonide/Formoterol Fumarate (Symbicort 80-4.5 Mcg Inhaler) 80 MCG-4.5 MCG/ ACTUATION HFA.AER.AD 2 Puff Inhale through mouth TWICE DAILY Qty = 3 No Refills Comments: Last Taken:07/28/18 Time:45 Guaifenesin (Guaifenesin ER) 600 MG TAB.ER.12H 600 Milligram ORAL EVERY 12 HOURS as needed for COUGH SUPPRESSANT Qty = 30 No Refills Comments: Last Taken:07/28/18 Time:0945 Calcium Carbonate (Calcium Carbonate) 200 MG CALCIUM (500 MG) TAB.CHEW 500 Milligram ORAL DAILY Qty = 30 No Refills Comments: Last Taken:07/28/18 Time:0945 Bisacodyl (Bisacodyl) 5 MG TABLET.DR 5 Milligram ORAL DAILY as needed for CONSTIPATION Qty = 30 No Refills Comments: NOT GIVEN IN HOSPITAL Docusate Sodium (Docusate Sodium) 100 MG CAPSULE 100 Milligram ORAL DAILY as needed for CONSTIPATION Qty = 30 No Refills Comments: Last Taken:07/28/18 Time:0945 Polyethylene Glycol 3350 (Miralax) 17 GRAM/DOSE POWDER 17 Gram ORAL DAILY as needed for CONSTIPATION Qty = 30 No Refills Comments: Last Taken:07/28/18 Time:0945 Ondansetron (Ondansetron Odt) 4 MG TAB.RAPDIS 4 Milligram ORAL EVERY 6 HOURS NEEDED as needed for NAUSEA/VOMITING Qty = 10 No Refills Comments: Last Taken:07/28/18 Time:0838 Omeprazole (Omeprazole) 20 MG CAPSULE.DR 40 Milligram ORAL DAILY BEFORE BREAKFAST Qty = 30 No Refills Comments: Last Taken:07/28/18 Time:0532 Finasteride (Finasteride) 5 MG TABLET 5 Milligram ORAL DAILY Qty = 30 No Refills Comments: Last Taken:07/28/18 Time:0945 Ampicillin Sodium (Ampicillin Sodium) 1 GRAM VIAL 1 Gram IV Q6H Qty = 3 No Refills Comments: NOT GIVEN IN HOSPITAL Albuterol Sulfate (Proair Hfa) 90 MCG HFA.AER.AD 2 Puff Inhale through mouth EVERY 4-6 HOURS NEEDED as needed for EMPHYSEMA Qty = 1 No Refills Comments: Last Taken:07/27/18 Time:1230 Copies To: Rochelle Vivas APRN, MD Review Statement Documenting Attending: Vinny Vicente MD
--- NOTE | 2018-07-26 13:55 | PN- Pulmonary ---
Subjective HPI/Critical Care Issues: Better Hematuria improving OR note reviewed and may have TCC of the rt side Objective Current Medications: Current Medications Sig/Dolores Start time Last Medication Dose Route Stop Time Status Admin Albuterol Sulfate 3 ML BID 07/21 2100 AC INH Albuterol Sulfate 3 ML Q6 PRN 07/21 0830 AC INH Atenolol 25 MG DAILY 07/21 0800 AC 07/26 PO 0816 Atorvastatin Calcium 20 MG 1700 07/16 1700 AC 07/24 PO 1804 Bisacodyl 5 MG DAILY 07/19 0900 AC 07/26 PO 0815 Budesonide/ 2 PUF BID 07/21 0900 AC 07/26 Formoterol Fumarate INH 0816 Calcium Carbonate 500 MG DAILY 07/19 1049 AC 07/26 PO 0839 Dextrose/Sodium 1,000 ML Q13H 07/25 1345 DC 07/25 Chloride IV 07/25 2000 1403 Docusate Sodium 100 MG DAILY 07/21 1200 AC 07/26 PO 0815 Finasteride 5 MG DAILY 07/17 1145 AC 07/26 PO 0815 Guaifenesin 600 MG Q12 07/22 0900 AC 07/26 PO 0839 Hydromorphone HCl 2 MG ONCE PRN 07/25 1445 AC IV Insulin Aspart 0 TIDAC 07/26 0015 AC 07/26 SC 0817 Insulin Human Regular 0 Q6 07/25 1337 DC 07/25 SC 1951 Ipratropium [place] 2.5 ML BID 07/21 2100 AC INH Ketamine HCl 0 .STK-MED ONE 07/25 1520 DC .ROUTE Omeprazole 40 MG DAILY AC 07/18 1622 AC 07/26 PO 0505 Ondansetron HCl 4 MG Q6-PRN PRN 07/21 1200 AC 07/24 PO 2246 Oxycodone HCl 40 MG BID 07/15 2254 AC 07/26 PO 0815 Polyethylene Glycol 17 GM DAILY 07/19 0900 AC 07/26 PO 0816 Potassium Chloride 20 MEQ Q20H 07/25 1900 AC 07/25 Dextrose/Sodium 1,000 ML IV 2028 Chloride Tiotropium [place] 1 PUF DAILY 07/22 1300 AC 07/26 INH 0839 Vital Signs & I&O Last 24 Hrs of Vitals and I&O: Vital Signs Date Time Temp Pulse Resp B/P B/P Pulse O2 O2 Flow FiO2 Mean Ox Delivery Rate 07/26 0816 74 123/64 07/26 0800 94 Nasal 2.0L Cannula 07/26 0727 97.9 71 20 113/62 93 Nasal 2.0L Cannula 07/26 0000 Nasal 2.0L Cannula 07/25 2243 97.9 67 20 116/61 94 Nasal 2.0L Cannula 07/25 1830 Nasal 2.0L Cannula 07/25 1830 98.0 65 18 116/65 95 Nasal 2.0L Cannula 07/25 1400 98.7 85 20 138/81 95 Nasal 2.0L Cannula Intake & Output 07/26 1600 07/26 0800 07/26 0000 Intake Total 640 830 Output Total 450 Balance 640 380 Intake, IV 400 350 Intake, Oral 240 480 Number 0 Bowel Movements Output, Urine 450 Impression/Plan Impression/Plan Impression/Plan: CT chest IMPRESSION: There is advanced emphysematous changes of lung. No acute abnormality. DICTATED BY: Jeff Echols MD DATE/TIME DICTATED:07/21/182102 ECHO CONCLUSIONS 1. Normal EF of 60% with moderate posterior wall hypokinesis and impaired LV relaxation. 2. Moderate left atrial enlargement. 3. Trace mitral regurgitation. 4. Moderate tricuspid regurgitation. 5. Mild pulmonic regurgitation. 6. Trace aotic insufficiency. 7. Moderate to severe pulmonary hypertension. General Appearance: well developed/nourished, no apparent distress, alert, awake Head: atraumatic Neck: normal inspection, supple Respiratory: normal breath sounds, chest non-tender Cardiovascular: regular rate/rhythm Gastrointestinal: soft, non-tender Extremities: B/L pedal edema grade 1 with chronic venous changes., b/l statis dematitis Neurologic/Psych: awake, alert, oriented x 3 IMPRESSION This is a gentleman who usually gets his care at [facility] with recurrent hematuria with prior workup apparently negative ongoing on and off for one yr, COPD hypertension diabetes, came into the emergency room because he had significant hematuria. Subsequently was noted to have diffuse EKG changes in the lateral leads. 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 NO sig bronchospasm or cough * Significant hematuria and blood loss anemia now s/p transfusions with ongoing hematuria now cysto finding sugg of TCC rt kidney * Significant EKG changes, no significant pain patient has diabetes however. So far troponin is not significantly elevated/ echo no wall motion abnormality with diastolic disease / needs out pt cardio eval * CKD tage 2 chronic renal failure * Diabetes, hypertension hyperlipidemia RECOMMENDATION Nebs with albuterol neb bid prn and spiriva one puff daily Incentive spirometry Pt would need home oxygen upon dc and would need spiriva andprn albuterol Out pt cardio navya Needs follow up with me upon dc
[2018-07-26 14:31] VITALS: BP 130/78
[2018-07-26 22:40] VITALS: BP 128/65
--- NOTE | 2018-07-27 06:57 | PN- Housestaff ---
See Addendum Subjective Follow-up For: Gross Hematuria Subjective: Patient seen and examined at bedside. Continues to have gross hematuria in mares. Has not passed a bowel movement in a few days. Given a bowel regimen for today. Patients hemoglobin dropped to 7.3 and 7.6 with repeat stick. Will be given 1 unit PRBC transfusion today and followed up tomorrow. Otherwise, Dr. Lai on board and has discussed patients transitional cell CA with patient and possible follow up nephrectomy in future. Review of Systems Constitutional: Denies: see HPI. Objective Last 24 Hrs of Vital Signs/I&O Vital Signs Date Time Temp Pulse Resp B/P B/P Pulse O2 O2 Flow FiO2 Mean Ox Delivery Rate 07/27 1451 97.4 70 20 114/59 91 Nasal 2.0L Cannula 07/27 1056 20 93 Nasal 4.0L Cannula 07/27 1055 24 86 Nasal 2.0L Cannula 07/27 0800 Nasal 2.0L Cannula 07/27 0659 97.5 66 20 110/48 94 07/27 0000 91 Nasal 2.0L Cannula 07/26 2240 98.0 74 20 128/65 93 Nasal Cannula Intake & Output 07/27 1600 07/27 0800 07/27 0000 Intake Total 500 520 320 Output Total 400 Balance 100 520 320 Intake, IV 400 200 Intake, Oral 500 120 120 Number 2 Bowel Movements Output, Urine 400 Physical Exam General Appearance: Alert, Oriented X3, Cooperative Skin: No Rashes, No Breakdown Cardiovascular: Regular Rate, Normal S1, Normal S2 Lungs: Clear to Auscultation, Normal Air Movement Abdomen: Normal Bowel Sounds, Soft, No Tenderness Vascular: Normal Pulses, Pulses Symmetrical Current Medications: Current Medications Sig/Dolores Start time Last Medication Dose Route Stop Time Status Admin Acetaminophen 650 MG Q6P PRN 07/27 1330 AC 07/27 PO 1348 Albuterol Sulfate 3 ML BID 07/21 2100 AC INH Albuterol Sulfate 3 ML Q6 PRN 07/21 0830 AC INH Atenolol 25 MG DAILY 07/21 0800 AC 07/27 PO 0804 Atorvastatin Calcium 20 MG 1700 07/16 1700 AC 07/26 PO 1804 Bisacodyl 5 MG DAILY 07/19 09 AC 07/27 PO 0804 Budesonide/ 2 PUF BID 07/21 09 AC 07/27 Formoterol Fumarate INH 0803 Calcium Carbonate 500 MG DAILY 07/19 1049 AC 07/27 PO 0804 Docusate Sodium 100 MG DAILY 07/21 1200 AC 07/27 PO 0804 Finasteride 5 MG DAILY 07/17 1145 AC 07/27 PO 0804 Guaifenesin 600 MG Q12 07/22 0900 AC 07/27 PO 0804 Hydromorphone HCl 2 MG ONCE PRN 07/25 1445 DC 07/26 IV 2239 Insulin Aspart 0 TIDAC 07/26 0015 AC 07/27 SC 1228 Ipratropium [place] 2.5 ML BID 07/21 2100 AC INH Omeprazole 40 MG DAILY AC 07/18 1622 AC 07/27 PO 0642 Ondansetron HCl 4 MG Q6-PRN PRN 07/21 1200 AC 07/24 PO 2246 Oxycodone HCl 40 MG BID 07/15 2254 AC 07/27 PO 0807 Patient Medication 1 ED ONE ONE 07/26 1900 DC Teaching ED 07/26 1901 Polyethylene Glycol 17 GM DAILY 07/19 0900 AC 07/27 PO 0804 Potassium Chloride 20 MEQ Q20H 07/25 1900 DC 07/26 Dextrose/Sodium 1,000 ML IV 1434 Chloride Tiotropium [place] 1 PUF DAILY 07/22 1300 AC 07/27 INH 0803 Last 24 Hrs of Lab/Shaheed Results Last 24 Hrs of Labs/Mics: Laboratory Tests 07/27/18 1205: PT 15.3 H, INR 1.40 H, APTT 44 H, CBC w Diff MAN DIFF ORDERED, RBC 2.71 L, MCV 87.9, MCH 28.1, MCHC 32.0 L, RDW 16.5 H, MPV 8.4, Gran % 88.6 H, Lymphocytes % 4.4 L, Monocytes % 6.7, Eosinophils % 0.3, Basophils % 0, Absolute Granulocytes 11.8 H, Segmented Neutrophils Pending, Absolute Lymphocytes 0.6 L, Absolute Monocytes 0.9 H, Absolute Eosinophils 0, Absolute Basophils 0 07/27/18 0700: Anion Gap 6, PT 15.3 H, INR 1.40 H, APTT 49 H, CBC w Diff NO MAN DIFF REQ, RBC 2.60 L, MCV 87.6, MCH 28.0, MCHC 31.9 L, RDW 16.8 H, MPV 7.9, Gran % 76.3 H, Lymphocytes % 11.5 L, Monocytes % 9.5 H, Eosinophils % 2.1, Basophils % 0.6, Absolute Granulocytes 7.1 H, Absolute Lymphocytes 1.1 L, Absolute Monocytes 0.9 H, Absolute Eosinophils 0.2, Absolute Basophils 0.1 Lines/Diet/Fluids Mares Still Needed? Yes Assessment/Plan Assessment: 73 year old male with PMH of HTN, DM, emphysema, hematuria for over 3 years, had an extensive workup last year including cystoscopy, bladder biopsy without any positive findings who presented to the ED for complaint of difficulty urinating that started 1 week prior to admission and got progressively worse until when he was not able to pass urine. Of note, during his ED stay, EKG showed ST segment depressions involving leads V2 to V6. Subsequently, Dr. Estevez was informed who recommended ICU admission and transfusion for further monitoring. Patient received 1U PRBC. He also received one dose of ceftriaxone in ED, considering WBC in urine and nitrites. Seen by Urology Dr. Lai with procedure in OR to replace mares and clot extraction. INR elevation noted will follow. 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 Followed by Dr. Lai. Continuing CBI and daily labs. Possible right nephrectomy in future. Continuing CBI for now. 07/27: Dr. Lai has discussed patients transitional cell CA and possible nephrectomy in future. Recommended treating UTI after sensitivities since patient has hematuria. Family may call Dr. Lai if any questions. Patients CBC showed a hemoglobin of 7.3 and repeat demonstarted 7.6. Will repeat 1 unit PRBC accordingly. Patient had required 4L NC at one point after bowel movement desaturation. Currently back on 2L PROBLEM LIST: 1. Gross Hematuria 2. Elevated PT and PTT 3. Urine Culture Positive for Gram Positive Cocci 4. EKG Changes on Admission 5. History of CKD Stage III 6. History of HTN/HLD 7. History of Diabetes Gross Hematuria -Urology consulted and took patient to OR on 07/25 for cystoscopy and placement of 3-way mares -Patient went for repeat cystoscopy that demonstrated bleeding from Transitional Cell CA in Right Kidney which has been discussed with patient and possible nephrectomy in the future. Patients family may call Dr. Lai for further information. Hemoglobin is 7.6 on repeat stick, will transfuse 1 unit PRBC. * Continue CBI for now * Patients hemoglobin 7.3 to 7.6 on repeat stick which will be transfused given goal less than 8 and follow up in morning. * Avoid aspirin/anticoagulation given bleeding * Elevated INR of 1.40 will continue to monitor for now post transfusion EKG Changes on Admission -Patient had EKG changes, ST segment and T wave inversion in V2 to V with negative trops x5, echo showed EF of 60%. Cardiology recommended cardiac cath after stabilization to rule out ischemia. * Not a candidate for anticoagulation at this time due to hematuria. * Cardiology has seen patient during admission; suggest outpatient visit on discharge History of chronic kidney disease stage III: On admission, Cr was 1.5, which may be close and new baseline. * Continue to monitor daily History of hypertension and hyperlipidemia: * Continue Lipitor * Continue on Atenolol History of diabetes: * Accu-Cheks * Insulin NovoLog according to sliding scale * Hold metformin while patient in the hospital DVT PPx: ALPS Full Code Problem List: 1. Hematuria 2. UTI (urinary tract infection) 3. Anemia Pain Ratin Pain Location: around mares catheter Pain Goal: Pain 4 or less Pain Plan: as per pain pathway Tomorrow's Labs & Rationales: cbc bep
[2018-07-27 06:59] VITALS: BP 110/48
--- NOTE | 2018-07-27 07:30 | PN- Urology ---
Subjective Subjective: No distress. Mares required irrigation x 1 last PM Objective Vital Signs and I&Os Vital Signs Date Time Temp Pulse Resp B/P B/P Pulse O2 O2 Flow FiO2 Mean Ox Delivery Rate 07/27 0659 97.5 66 20 110/48 94 07/27 0000 91 Nasal 2.0L Cannula 07/26 2240 98.0 74 20 128/65 93 Nasal Cannula 07/26 1431 98.1 74 20 130/78 91 Nasal 2.0L Cannula 07/26 0816 74 123/64 07/26 0800 94 Nasal 2.0L Cannula 07/26 0727 97.9 71 20 113/62 93 Nasal 2.0L Cannula Intake & Output 07/27 0807/27 0000 07/26 1600 07/26 0807/26 0000 07/25 1600 Intake Total 320 1400 640 830 550 Output Total 450 150 Balance 320 1400 640 380 400 Intake, IV 200 400 400 350 Intake, Oral 120 1000 240 480 550 Number 0 Bowel Movements Output, Urine 450 150 Abd: soft and non tender Genitalia: 3 way [address] in [address]. CBI running at slow rate with relatively clear drainage Laboratory Tests 07/27 07 Chemistry Sodium Pending Potassium Pending Chloride Pending Carbon Dioxide Pending Anion Gap Pending Coagulation PT Pending INR Pending APTT Pending Hematology CBC w Diff Pending WBC Pending RBC Pending Hgb Pending Hct Pending MCV Pending MCH Pending MCHC Pending RDW Pending Plt Count Pending MPV Pending PT and PTT remain elevated. Urine C&S shows 10 k gram pos cocci Assessment/Plan Assessment/Plan Imp: 1. Gross hematuria. Seems improved. Due to Transitional cell ca of R kidney 2. Elevated PT and PTT 3. Low colony count UTI Plan: 1. Dx of TCC of R kidney discussed in detail with patient. Family may call me in office if they have any questions 2. Continue CBI for now 3. Evaluate further elevated PT and PTT and correct if possible 4. Would treat UTI when sensitivities available since pt has hematuria 5. Standard tx for his TCC of R kidney would be R nephro-ureterectomy. He is very high risk for this given comorbidities. Also his renal fxn will be affected. Will consider this further going forward
[2018-07-27 08:16] LABS: ABSOLUTE BASOPHIL COUNT 0.1 /CUMM (0.0-0.2); ABSOLUTE EOSINOPHIL COUNT 0.2 /CUMM (0.0-0.7); ABSOLUTE GRANULOCYTE CT 7.1 /CUMM (1.4-6.5); ABSOLUTE LYMPH COUNT 1.1 /CUMM (1.2-3.4); ABSOLUTE MONOCYTE COUNT 0.9 /CUMM (0.10-0.60); BASOPHIL % 0.6 % (0.0-2.0); EOSINOPHIL % 2.1 % (0-5); GRANULOCYTE % 76.3 % (42.2-75.2); MEAN CORPUSCULAR HGB CONC 31.9 G/DL (33.0-37.0); MEAN CORPUSCULAR VOLUME 87.6 FL (80.0-94.0); MEAN PLATELET VOLUME 7.9 FL (7.4-10.4); PLATELET COUNT 242 /CUMM (130-400); RBC DISTRIBUTION WIDTH 16.8 % (11.5-14.5); WHITE BLOOD CELL COUNT 9.3 /CUMM (4.8-10.8)
[2018-07-27 08:22] LABS: PT 15.3 SEC (9.4-12.5); PTT 49 SEC (25-37)
[2018-07-27 08:36] LABS: HEMATOCRIT 22.8 % (42-52)
[2018-07-27 14:38] LABS: ABSOLUTE BASOPHIL COUNT 0 /CUMM (0.0-0.2); ABSOLUTE EOSINOPHIL COUNT 0 /CUMM (0.0-0.7); ABSOLUTE GRANULOCYTE CT 11.8 /CUMM (1.4-6.5); ABSOLUTE LYMPH COUNT 0.6 /CUMM (1.2-3.4); ABSOLUTE MONOCYTE COUNT 0.9 /CUMM (0.10-0.60); BASOPHIL % 0 % (0.0-2.0); EOSINOPHIL % 0.3 % (0-5); GRANULOCYTE % 88.6 % (42.2-75.2); HEMATOCRIT 23.8 % (42-52); MEAN CORPUSCULAR HGB 28.1 PG (27.0-31.0); MEAN CORPUSCULAR VOLUME 87.9 FL (80.0-94.0); MEAN PLATELET VOLUME 8.4 FL (7.4-10.4); PLATELET COUNT 270 /CUMM (130-400); PT 15.3 SEC (9.4-12.5); PTT 44 SEC (25-37); RBC DISTRIBUTION WIDTH 16.5 % (11.5-14.5); RED BLOOD CELL CT 2.71 /CUMM (4.70-6.10); WHITE BLOOD CELL COUNT 13.4 /CUMM (4.8-10.8)
[2018-07-27 14:51] VITALS: BP 114/59
[2018-07-27 23:30] VITALS: BP 128/60
[2018-07-28 06:33] VITALS: BP 90/60
--- NOTE | 2018-07-28 07:07 | PN- Housestaff ---
Mary Kate Mcnair 07/28/18 0707: Subjective Follow-up For: Gross Hematuria EKG Changes on admission Urine Cx positive for gram + cocci Subjective: Patient seen and examined at bedside this morning. He continues to have clotting within his mares that has caused discomfort. Saturating well on 3L NC. 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 Dr. Lai has seen patient and talks of possible transfer to [place] for surgery given continuous bleeding. Review of Systems Constitutional: Denies: see HPI. Objective Last 24 Hrs of Vital Signs/I&O Vital Signs Date Time Temp Pulse Resp B/P B/P Pulse O2 O2 Flow FiO2 Mean Ox Delivery Rate 07/28 0946 75 131/69 07/28 0932 75 131/69 07/28 0841 92 181/78 07/28 0800 93 Nasal 3.0L Cannula 07/28 0633 98.0 75 20 90/60 93 07/28 0000 94 Nasal 3.0L Cannula 07/27 2330 98.5 69 20 128/60 94 Nasal 3.0L Cannula 07/27 1600 Nasal 3.0L Cannula 07/27 1451 97.4 70 20 114/59 91 Nasal 2.0L Cannula Intake & Output 07/28 1600 07/28 0800 07/28 0000 Intake Total 240 Output Total 1100 Balance -1100 240 Intake, Oral 240 Output, Urine 1100 Physical Exam General Appearance: Alert, Oriented X3, Moderate Distress Skin: No Rashes, No Breakdown HEENT: PERRLA, EOMI, Mucous Membr. moist/pink Cardiovascular: Regular Rate, Normal S1, Normal S2 Lungs: Clear to Auscultation, Normal Air Movement Abdomen: Distended, rigid Tender at right flank Normal bowel sounds Extremities: No Clubbing, No Cyanosis Vascular: Normal Pulses, Pulses Symmetrical Last 24 Hrs of Lab/Shaheed Results Last 24 Hrs of Labs/Mics: Laboratory Tests 07/28/18 0644: Anion Gap 9, Estimated GFR 37 L, BUN/Creatinine Ratio 16.1, CBC w Diff NO MAN DIFF REQ, RBC 2.96 L, MCV 86.2, MCH 28.0, MCHC 32.5 L, RDW 17.2 H, MPV 8.0, Gran % 84.9 H, Lymphocytes % 5.5 L, Monocytes % 7.7, Eosinophils % 1.5, Basophils % 0.4, Absolute Granulocytes 12.0 H, Absolute Lymphocytes 0.8 L, Absolute Monocytes 1.1 H, Absolute Eosinophils 0.2, Absolute Basophils 0.1 Lines/Diet/Fluids Mares Still Needed? Yes Assessment/Plan Assessment: 73 year old male with PMH of HTN, DM, emphysema, hematuria for over 3 years, had an extensive workup last year including cystoscopy, bladder biopsy without any positive findings who presented to the ED for complaint of difficulty urinating that started 1 week prior to admission and got progressively worse until when he was not able to pass urine. Of note, during his ED stay, EKG showed ST segment depressions involving leads V2 to V6. Subsequently, Dr. Estevez was informed who recommended ICU admission and transfusion for further monitoring. Patient had an ICU course, telemetry and general medicine. Seen by Urology Dr. Lai with procedure in OR to replace mares and clot extraction. INR elevation noted to follow. Patient will have possible transfer to [place] given continuous bleeding. 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 07/28: Patient status post 1 unit PRBC with hemoglobin back to normal at 8.3. Patient on 3L NC and continues to have clotting and discomfort with continuous CBI. Dr. Lai has seen patient in the morning and suggests possible transfer to [place] for right nephrouretrectomy given his transitional cell CA. Patients family is aware of situation. PROBLEM LIST: 1. Gross Hematuria 2. Elevated PT and PTT 3. Urine Culture Positive for Gram Positive Cocci 4. EKG Changes on Admission 5. History of CKD Stage III 6. History of HTN/HLD 7. History of Diabetes Gross Hematuria * Transfer to [place] as per urology team given continuous bleeding and need of surgery on right transitional cell CA kidney * Continue CBI for now * Hemoglobin back to 8.3 now * Avoid aspirin/anticoagulation given bleeding * Elevated INR of 1.40 will continue to monitor for now post transfusion * Follow up urine culture sensitivities for possible treatment of UTI EKG Changes on Admission * Not a candidate for anticoagulation at this time due to hematuria. * Cardiology has seen patient during admission; suggest outpatient visit on discharge History of chronic kidney disease stage III: On admission, Cr was 1.5, which may be close and new baseline. * Cr today is 1.8 with BUN of 29. * Continue to monitor daily History of hypertension and hyperlipidemia: * Continue Lipitor * Continue on Atenolol History of diabetes: * Accu-Cheks * Insulin NovoLog according to sliding scale * Hold metformin while patient in the hospital DVT PPx: ALPS Full Code Consistent Carbohydrate 3 Problem List: 1. Hematuria 2. UTI (urinary tract infection) 3. Anemia Pain Ratin Pain Location: Right sided flank Pain Goal: Pain 4 or less Pain Plan: as per pain pathway Tomorrow's Labs & Rationales: Transfer Vinny Vicente MD 07/28/18 1716: Attending MD Review Statement Attending Statement Attending MD Statement: examined this patient, discuss w/resident/PA/GUINEA PIG BREEDER, agreed w/resident/PA/GUINEA PIG BREEDER, discussed with family, reviewed EMR data (avail), discussed with nursing, discussed with case mgmt, amended to note Attending Assessment/Plan: The patient was seen and discussed with house staff. Urology input appreciated. Decision to transfer to [place] for consideration for nephrectomy. Still passing significant clots. H/H increased post transfusion.
--- NOTE | 2018-07-28 07:27 | PN- Urology ---
Subjective Subjective: No acute distress Objective Vital Signs and I&Os Vital Signs Date Time Temp Pulse Resp B/P B/P Pulse O2 O2 Flow FiO2 Mean Ox Delivery Rate 07/28 0633 98.0 75 20 90/60 93 07/28 0000 94 Nasal 3.0L Cannula 07/27 2330 98.5 69 20 128/60 94 Nasal 3.0L Cannula 07/27 1600 Nasal 3.0L Cannula 07/27 1451 97.4 70 20 114/59 91 Nasal 2.0L Cannula 07/27 1056 20 93 Nasal 4.0L Cannula 07/27 1055 24 86 Nasal 2.0L Cannula 07/27 0800 Nasal 2.0L Cannula Intake & Output 07/28 0807/28 0000 07/27 1600 07/27 0000 07/26 1600 Intake Total 240 500 325 338 5639 Output Total 400 Balance 240 100 179 906 5958 Intake, IV 400 200 400 Intake, Oral 240 500 436 362 [id number] Number 2 Bowel Movements Output, Urine 400 Abd: obese, soft, some suprapubic tenderness. Bladder not palpable. No peritoneal signs Genitalia: 3-way mares in place. CBI running at fairly slow rate. Drainage is pink to red. Not clear enough to stop CBI Laboratory Tests 07/28 07/27 0644 1205 Chemistry Sodium Pending Potassium Pending Chloride Pending Carbon Dioxide Pending Anion Gap Pending BUN Pending Creatinine Pending BUN/Creatinine Ratio Pending Coagulation PT (9.4 - 12.5 SEC) 15.3 H INR (0.90 - 1.17) 1.40 H APTT (25 - 37 SEC) 44 H Hematology CBC w Diff Pending MAN DIFF ORDERED WBC (4.8 - 10.8 /CUMM) Pending 13.4 H RBC (4.70 - 6.10 /CUMM) Pending 2.71 L Hgb (14.0 - 18.0 G/DL) Pending 7.6 L Hct (42 - 52 %) Pending 23.8 L MCV (80.0 - 94.0 FL) Pending 87.9 MCH (27.0 - 31.0 PG) Pending 28.1 MCHC (33.0 - 37.0 G/DL) Pending 32.0 L RDW (11.5 - 14.5 %) Pending 16.5 H Plt Count (130 - 400 /CUMM) Pending 270 MPV (7.4 - 10.4 FL) Pending 8.4 Gran % (42.2 - 75.2 %) 88.6 H Lymphocytes % (20.5 - 51.1 %) 4.4 L Monocytes % (1.7 - 9.3 %) 6.7 Eosinophils % (0 - 5 %) 0.3 Basophils % (0.0 - 2.0 %) 0 Absolute Granulocytes (1.4 - 6.5 /CUMM) 11.8 H Segmented Neutrophils (42.2 - 75.2 %) 87 H Band Neutrophils (0.0 - 5.0 %) 2 Absolute Lymphocytes (1.2 - 3.4 /CUMM) 0.6 L Lymphocytes (20.5 - 51.1 %) 6 L Monocytes (1.7 - 9.3 %) 5 Absolute Monocytes (0.10 - 0.60 /CUMM) 0.9 H Absolute Eosinophils (0.0 - 0.7 /CUMM) 0 Absolute Basophils (0.0 - 0.2 /CUMM) 0 Platelet Estimate (ADEQUATE) ADEQUATE Polychromasia 2+ Hypochromic-Microcytic 3+ Anisocytosis 1+ PT and PTT remain elevated Assessment/Plan Assessment/Plan Imp: 1. Gross hematuria due to TCC of R kidney 2. Elevated PT and PTT 3. Multiple medical issues making him high risk for definitive surgery for R nephro-ureterectomy Plan: 1. Continue CBI 2. Attempt to correct elevated PT, PTT if possible 3. f/u sensitivities from urine C&S and treat accordingly 4. If patient does not stop bleeding may require transfer to [place] for evaluation for possible laprascopic R nephro-ureterectomy. He would be high risk for this surgery and also renal function would be adversely affected. Doubt this could be managed by ureteroscopic fulgeration as tumor size appears large for that
[2018-07-28 08:41] VITALS: BP 181/78
[2018-07-28 08:41] LABS: ABSOLUTE BASOPHIL COUNT 0.1 /CUMM (0.0-0.2); ABSOLUTE EOSINOPHIL COUNT 0.2 /CUMM (0.0-0.7); ABSOLUTE LYMPH COUNT 0.8 /CUMM (1.2-3.4); ABSOLUTE MONOCYTE COUNT 1.1 /CUMM (0.10-0.60); BASOPHIL % 0.4 % (0.0-2.0); EOSINOPHIL % 1.5 % (0-5); HEMATOCRIT 25.5 % (42-52); MEAN CORPUSCULAR HGB CONC 32.5 G/DL (33.0-37.0); MEAN CORPUSCULAR VOLUME 86.2 FL (80.0-94.0); PLATELET COUNT 256 /CUMM (130-400); RBC DISTRIBUTION WIDTH 17.2 % (11.5-14.5); RED BLOOD CELL CT 2.96 /CUMM (4.70-6.10); WHITE BLOOD CELL COUNT 14.1 /CUMM (4.8-10.8)
[2018-07-28 09:19] LABS: GRANULOCYTE % 84.9 % (42.2-75.2)
[2018-07-28 09:32] VITALS: BP 131/69
[2018-07-28 14:36] VITALS: BP 100/50
--- NOTE | 2018-07-28 15:29 | Discharge Summary ---
See Addendum Visit Information Visit Dates Admission Date: 07/15/18 Discharge Date: 07/28/18 Hospital Course Course Attending Physician: Vinny Vicente MD Primary Care Physician: Rochelle Vivas APRN Consulting Request: 1 Consulting Specialty: Urology Consulting Physician: Dr. Lai Consulting Request: 2 Consulting Specialty: Cardiology Consulting Physician: Dr. Estevez Consulting Request: 3 Consulting Specialty: Pulmonary Disease Consulting Physician: Dr. Lopez Hospital Course: Patient is a 73 y/o male with PMH of hypertension, DM, emphysema and hematuria over the past 3 years, s/p cystopscopy and bladder biopsy in 2017 without positive findings presenting to the [place] ED with difficulty urinating that has become progressively worse over the past 1 week and on presentation reports being unable to void. On admission: Vital signs: Blood pressure 111/56, pulse 71, temperature 97.6, respiratory 16, pulse ox 96 on room air Labs: CBC showed normal WBC 8.2, no H&H 8.3/26.2, his baseline was 10.3 back in 2017, platelet 234, BEP significant for mild hyponatremia sodium 133, and anion gap metabolic acidosis with bicarb of 16, potassium 4.7, chloride 108, BUN 26, creatinine 1.5, his baseline was 1.7 on 2017, INR 1.16, UA was positive with large hemoglobin, packed RBCs, WBC 2550 EKG: ST segment depressions involving leads V2 to V6 Imaging: CT ABD AND PELVIS: There is no acute abnormality of the abdomen or the pelvis. Cholelithiasis. Diverticulosis of colon. No acute abnormality of the bowel. Marked emphysematous changes of lung bases. In the ED patient received 1L NS bolus, IV Ceftriaxone 1mg x 1 and 1 pRBC unit. Due to patient's EKG changes, cardiology was consulted and patient was initially admitted to the ICU. Patient once stable was transferred to the general medical floor for management of the followin. 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 Acute on Chronic Anemia 2/2 above 3. EKG changes 4. Acute hypoxic respiratory failure 5. Urine culture - growing pansensitive enterococcus 6. Chronic conditions: H/O CKD Stage 3, HLD, HTN, DM Patient was admitted to the ICU. A 3 way mares and CBI were intiated for the hematuria and clots. Due to patient's EKG changes, he was given 2 pRBC transfusions to keep hemoglobin >8.5. Troponin remained normal. Aspirin and heparin were held in setting of hematuria. ECHO was performed which showed an EF of 60%. Cardiology evaluated the patient and recommended further outpatient workup with possible cardiac cath. Patient was evaluated by urology and on 07/22 had a cystoscopy with clot and bladder stone evacuation, fulgration of bladder neck and resection of friable prostate. Pathology sent showed fibromuscular hyperplasia and atypical epithelium suspicious for urothelial epithelial dysplasia/carcinoma. In the ICU patient had acute hypoxic respiratory failure requiring 4L NC. Chest CT showed advanced emphysematous changes of the lung with no acute abnormality. Patient was started on DuoNebs and was weaned down to 2L NC, albuterol and symbicort. Patient once stabilized was transferred to the general medicine floor where he was continued with CBI. Patient continued to have hematuria and clots and required a second cystoscopy on 07/26 with clot evacuation, fulgration of the prostatic urethra, right ureteroscopy and right retrograde pyelogram. Urine for cytology of right kidney was sent. Per urology findings seen on procedure were consistent with transitional cell carcinoma of the right renal pelvis. Patient's urine culture grew 10,000 colonies of pansensitive enterococcus. Due to significant hematuria and procedures, patient was started on IV ampicillin. Patient continued to have clots and signficant pain. Decision to transfer to [place] for further care was discussed between the medical team and urology. Allergies: Coded Allergies: NO KNOWN ALLERGIES (05/25/11) Significant Procedures: Operative/Inv Procedure Report Surgery Date: 07/22/18 Name of Procedure: cystoscopy, clot and bladder stone evacuation, fulguration of bladder neck and resection friable prostate Pre-Operative Diagnosis: gross hematuria or unclear etiology Post-Operative Diagnosis: gross hematuria from right ureter Estimated Blood Loss: less than 50ml Surgeon/Hvac Technician: Savanna Steward MD Anesthesia: laryngeal mask airway Drains: 20fr 3 way Specimens: prostate chips, large clots, bladder stones Complications: none Condition: stable Operative Indication: gross hematuria of unclear etiology Operative/Procedure Note Note: This 73-year-old male with a history of gross hematuria intermittently for 3 years that has been evaluated at the [facility]. He has been in patient with intermittent gross hematuria with a three-way Mares catheter in. His hematocrit has slowly trended down. As result he was consented for a cystoscopy fulguration of any bleeding source and evacuation of clot. The risks benefits and alternatives were given and all questions were answered prior to the consent being signed. Patient was taken to the operating placed on the operating table in supine position. Timeout was performed. IV antibiotics of Cipro 400 mg was given. LMA anesthesia was begun. The patient was placed in the dorsal lithotomy position. He was prepped and draped in the standard sterile fashion. He had a lot of of penile of smegma yellow discharge and crusting around his perineal area and uncircumcised penis. This was cleaned with Betadine solution with the foreskin retracted back. Cystoscopy was placed without difficulty and the bladder was globally inspected. However was difficult to see the bladder mucosa given the large clots. Resectoscope with the bipolar loop was placed into the bladder and Ellik evacuator was used to evacuate the large clots. At this point bladder chips were also seen and these were evacuated as well. Bladder was globally inspected. No bladder tumors or lesions were appreciated. The ureteral orifices were easily identified. The prostate was then visualized and the bladder neck was quite friable as well as the the proximal portion of the prostate. As result this was resected and all bleeding was coagulated. Again the ureteral orifices were identified to ensure they were not injured. However upon doing so the right ureteral orifice effluxed grossly bloody urine darker than wide in color. This effluxed several times. The left side did not do so. All the prostate chips were evacuated out with the Ellik evacuator. Point coagulation was performed on the bladder neck and the prostate again. The resectoscope was removed. The 20 Croatian three-way Mares catheter was placed into the bladder and CBI was begun. Patient tolerated procedure well. He was transferred to recovery room in stable condition. Findings: Large bladder clots and bladder stones yellow in color. No bladder lesions or tumors. Friable bladder neck and proximal prostate. Grossly bloody efflux from the right ureteral orifice. Discharge Disposition: PACU DICTATED BY: Savanna Steward MD Operative/Inv Procedure Report Surgery Date: 07/25/18 Name of Procedure: Cystoscopy, clot evacuation, fulguration of prostatic urethra, right ureteroscopy, right retrograde pyelogram Pre-Operative Diagnosis: Gross hematuria Post-Operative Diagnosis: Gross hematuria Estimated Blood Loss: 50ml to 100ml Surgeon/Hvac Technician: Ming Anesthesia: laryngeal mask airway Drains: 22 Croatian three-way hematuria catheter for continuous bladder irrigation Specimens: Urine culture and urine from right kidney for cytology Complications: None Condition: Stable Operative Indication: Intractable gross hematuria. The patient has had gross hematuria for 3 years and has been followed at the [facility]. Apparently according to the patient no source of the hematuria was seen. Recently was taken to the operating room by Dr. Steward where some oozing was seen from the prostatic urethra and this area was resected and fulgurated. There was also some bloody reflux in the right ureteral orifice. Subsequently CT IVP was performed. According to the report there were no significant upper tract findings. Patient continued to have gross hematuria. His Mares was removed and he could not void and could not be replaced on the floor and therefore is taken back to the operating room for irrigation of any clots and Mares placement. Also for an attempt to define the exact cause of the bleeding. Operative/Procedure Note Note: The patient was taken to the operating room and identified. He is placed in supine position on the cystoscopy table. A timeout was executed appropriately with the patient awake. General anesthesia was induced to LMA. He was then placed in the dorsolithotomy position. He was prepped and draped in usual fashion for cystoscopy. A 22 Croatian cystoscope sheath was placed into the bladder under direct vision using a 30 lens. Anterior urethra was normal. The prostatic urethra was partially obstructing. Upon entering the bladder blood clot was noted. The Keelr evacuator was used to remove all blood clot from the bladder after the resectoscope and placed in the bladder. At this point the bladder was completely inspected. There was no evidence of bladder tumor. The ureteral orifices appeared normal. The area of the bladder neck and proximal prostatic urethra had been resected. There was minimal oozing from this area but this was not felt to be the cause of the gross hematuria. Bloody reflux was again seen from the right ureteral orifice. Therefore the resectoscope was removed and a 22 Croatian cystoscope sheath placed back into the bladder under direct vision using the 30 lens. An open ended catheter was placed into the right ureteral orifice and a right retrograde pyelogram performed. The ureter appeared normal. However this did appear to be a filling defect in the renal pelvis. Therefore guidewire was placed through the open-ended catheter which was subsequently removed. A double-lumen dilating catheter was placed over the wire and a second wire passed. Catheter was removed and the flexible ureteroscope advanced over 1 of the wires which was subsequently removed. There was bleeding noted from the right kidney. Although difficult to see with manual irrigation there was clearly transitional cell carcinoma in the right renal pelvis. This was fairly sizable. Some urine from the right kidney was taken for cytology. At this point the flexible ureteroscope was removed. No stent was left in place. A 22 Croatian three-way hematuria catheter was placed to continuous bladder irrigation begun. Patient tolerated the procedure reasonably well and was transferred to the recovery room in stable condition Findings: Filling defect in right renal pelvis on retrograde pyelogram. 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 Pictures were taken but no biopsy was taken Discharge Disposition: PACU DICTATED BY: Ming LEGER,Levi Breaux Pertinent Lab Results: SERVICE DATE: 07/15/18 EXAM TYPE: RAD - XRY-CHEST XRAY, TWO VIEWS EXAMINATION: XR CHEST CLINICAL INFORMATION: EKG changes. COMPARISON: None TECHNIQUE: 2 views of the chest were obtained. FINDINGS: The cardiomediastinal contour is prominent. There are calcifications of aorta. There is no acute abnormality of the chest. No pulmonary vascular congestion. There is infiltrate or pleural effusion. Multilevel degenerative spondylosis of dorsal spine with bridging osteophytes of the vertebrae. There is old healed fractures of the right mid lateral ribs. IMPRESSION: No acute abnormality of the chest. SERVICE DATE: 07/15/18 EXAM TYPE: CAT - CT ABD & PELVIS W/O IV CONTRAS EXAMINATION: CT ABDOMEN AND PELVIS WITHOUT CONTRAST CLINICAL INFORMATION: Chronic Hematuria. Anemia. Acute blood loss COMPARISON: CT scan abdomen pelvis 12/31/2016. TECHNIQUE: Multidetector volumetric imaging was performed from the superior aspect of the liver through the pubic symphysis. Sagittal and coronal reformatted images were obtained on the technologist's workstation. DLP: 1378.28 mGy-cm FINDINGS: LUNG BASES: There is marked emphysematous changes of lungs with large blebs and interstitial thickening. There is no infiltrate or pleural effusion. LIVER, GALLBLADDER, AND BILIARY TREE: The liver is normal in size, shape, and attenuation. No focal hepatic lesion or biliary ductal dilatation is present. There are multiple small calcified gallstones layering dependently in the gallbladder. No edema around the gallbladder. Extrahepatic CBD measures 6 mm.. There is no calcified gallstone within the bile ducts. PANCREAS: Unremarkable. SPLEEN: Unremarkable. ADRENAL GLANDS: Unremarkable. KIDNEYS AND URETERS: The kidneys are normal in size, shape, and attenuation. No hydronephrosis, hydroureter, or calculi seen. No perinephric stranding. There are renal cysts in the lower pole and upper pole of the right kidney. Largest at lower pole is pedunculated inferiorly. Measures 4.8 cm. BLADDER: Mares catheter within the bladder. There is a small collection of air in the bladder from the instrumentation. GASTROINTESTINAL TRACT: There is marked diverticulosis of the sigmoid and left colon. There is no acute change of the bowel. No bowel obstruction. No bowel wall thickening or edema. The appendix is normal. The small bowel loops are unremarkable. ABDOMINAL WALL: There is a fat-containing umbilical hernia. LYMPH NODES: Normal. VASCULAR: There is extensive vascular calcifications in the abdomen and the pelvis. There is no aneurysm of aorta. PELVIC VISCERA: Unremarkable. OSSEOUS STRUCTURES: Multilevel degenerative spondylosis of disc height narrowing and vacuum disc phenomenon with endplate spurring and facet joint arthrosis. IMPRESSION: There is no acute abnormality of the abdomen or the pelvis. Cholelithiasis. Diverticulosis of colon. No acute abnormality of the bowel. Marked emphysematous changes of lung bases. SERVICE DATE: 07/16/18 EXAM TYPE: CARD - ECHOCARDIOGRAM FINDINGS Left Ventricle Normal left ventricular size, wall thickness and systolic function with moderate posterior wall hypokinesis. Diastolic filling pattern is consistent with impaired LV relaxation. The ejection fraction is visually estimated at 60%. Right Ventricle The right ventricle is normal in size and function. Right Atrium The right atrium is normal in size. Left Atrium The left atrium is moderately enlarged. The interatrial septum is intact. Mitral Valve The mitral valve is normal in structure and function. There is trace mitral regurgitation. Aortic Valve Mildly sclerotic aortic valve without significant stenosis. There is trace aortic regurgitation. Tricuspid Valve The tricuspid valve is normal in structure and function. There is moderate tricuspid regurgitation. Pulmonary artery systolic pressure is severely elevated to 65mmHg. Pulmonic Valve Structurally normal pulmonic valve. There is mild pulmonic regurgitation. Pericardium Normal pericardium without effusion. No pleural effusion. Great Vessels Normal aortic root dimension. The aortic arch and great vessels are well seen and are normal. CONCLUSIONS 1. Normal EF of 60% with moderate posterior wall hypokinesis and impaired LV relaxation. 2. Moderate left atrial enlargement. 3. Trace mitral regurgitation. 4. Moderate tricuspid regurgitation. 5. Mild pulmonic regurgitation. 6. Trace aotic insufficiency. 7. Moderate to severe pulmonary hypertension. Alec Estevez M.D. (Electronically Signed) Final Date: 17 July 2018 08:25 MEASUREMENTS (Male / Female) Normal Values DICTATED BY: Herb LEGER PHD,Alec Middleton SERVICE DATE: 07/16/18 EXAM TYPE: RAD - XRY-PORTABLE CHEST XRAY EXAMINATION: XR PORTABLE CHEST CLINICAL INFORMATION: Requiring increased oxygen supplementation. 2 transfusions. COMPARISON: Chest x-ray 07/15/2018 TECHNIQUE: Portable frontal view of the chest was obtained. FINDINGS: Symmetric lung inflation. There are bibasilar airspace opacities that are improved in comparison to the prior study, possibly atelectasis. There is a similar pleural-based opacity within the right midlung that is nonspecific. There are a few adjacent chronic appearing rib fractures. Central vascular congestion without overt edema. Cardiac mediastinal silhouette is stable. Osseous structures are stable. IMPRESSION: Improving bibasilar opacities, likely atelectasis. There is a similar pleural-based opacity within the right midlung that is nonspecific. There are a few adjacent chronic appearing rib fractures. CT could be obtained for further assessment. DICTATED BY: Lars Dhillon MD SERVICE DATE: 07/21/18- EXAM TYPE: CAT - CT CHEST WO IV CONTRAST EXAMINATION: CT CHEST WITHOUT CONTRAST CLINICAL INFORMATION: Hypoxia. COMPARISON: Portable chest x-ray 07/21/2018 TECHNIQUE: Multidetector volumetric CT imaging of the chest was done. Axial MIP volume rendering provided. Sagittal and coronal reformatted images were obtained. DLP: 748.46 mGy-cm FINDINGS: LUNGS: There is bullous emphysematous changes of the lung. There are subpleural blebs at the posterior lungs and there is honeycombing in the subpleural lung at the lung bases. No acute abnormality of chest. No acute infiltrate. Central bronchial airways are open. MEDIASTINUM: There are small shotty subcentimeter lymph nodes in the mediastinum but no bulky lymphadenopathy. There is atherosclerotic vascular wall calcifications of aorta at the origin of the great vessels. There is coronary artery calcifications. There is no pericardial effusion. PLEURA: There is no pleural effusion. No pleural mass or thickening. AXILLA: No lymphadenopathy. UPPER ABDOMEN: There are multiple calcified gallstones layering dependently in the gallbladder. No focal liver lesion. The visualized portions of the spleen and the pancreas are unremarkable. The adrenal glands are normal. There is atherosclerotic vascular calcifications of the aorta and at the origin of the SMA. There is a parapelvic cyst in the upper pole of right kidney measuring 2.5 cm. OSSEOUS STRUCTURES: Multilevel degenerative spondylosis of the spine with disc height narrowing and plate spurring of the vertebrae. There are old healed fractures of the right 5th and 6th rib at the posterior axillary line. IMPRESSION: There is advanced emphysematous changes of lung. No acute abnormality. DICTATED BY: Jeff Echols MD SERVICE DATE: 07/21/18- EXAM TYPE: RAD - XRY-PORTABLE CHEST XRAY EXAMINATION: XR PORTABLE CHEST CLINICAL INFORMATION: Worsening shortness of breath. COMPARISON: Chest x-ray 07/16/2018. TECHNIQUE: Portable frontal 85 degrees semiupright view of the chest was obtained. FINDINGS: The lung blanchard are moderately well-expanded bilaterally. There is been interval decrease in the bibasilar airspace opacities compared to the prior study. The well-defined opacity laterally in the right chest is unchanged, which may be consistent with pleural thickening. There are associated healed rib fractures. The cardiac silhouette is at the upper limits of normal in size. The mediastinum appears normal. There are no pleural effusions. There are no acute osseous findings. IMPRESSION: 1. There has been interval decrease in the bibasilar airspace opacities compared to the prior study. 2. The right lateral chest opacity with adjacent healed rib fractures is unchanged. As previously suggest, this could be further evaluated with CT scan of the chest. DICTATED BY: Antony Wood MD SERVICE DATE: 07/22/18- EXAM TYPE: CAT - CT ABD & PELVIS W/ & W/O IV CO EXAMINATION: CT ABDOMEN AND PELVIS WITHOUT AND WITH CONTRAST CLINICAL INFORMATION: Gross hematuria. COMPARISON: CT scan of the abdomen and pelvis 07/15/2018. CT scan of the chest 07/21/2018. TECHNIQUE: Multidetector volumetric imaging was performed through the abdomen and pelvis prior to IV contrast. The abdomen and pelvis were then reexamined after the administration of 95 mL Optiray 320 intravenous contrast. Sagittal and coronal reformatted images were obtained on the technologist's workstation. DLP: 2664.28 mGy-cm FINDINGS: LUNG BASES: The study redemonstrates the disc emphysematous changes at the lung bases. Honeycombing is redemonstrated at the left greater than right bases. LIVER, GALLBLADDER, AND BILIARY TREE: The liver is normal in size, shape, and attenuation. No focal hepatic lesion or biliary ductal dilatation is present. The gallbladder is well-distended. The study demonstrates dependent radiodense gallstones. The CBD is not distended. PANCREAS: The pancreas is atrophic. SPLEEN: Unremarkable. ADRENAL GLANDS: The adrenal glands are not enlarged. KIDNEYS AND URETERS: The right kidney measures 11 cm. The left kidney measurements 10.4 cm. Renal contour is a slightly lobular bilaterally. There is mild bilateral perinephric stranding. There is a well-defined low density area noted at the upper pole of the right kidney which measures 2.6 cm in diameter. This has Hounsfield units of 0 precontrast, and has Hounsfield units of approximately 10-15 postcontrast. A low density density exophytic cyst at the lower pole measures approximately 4.7 cm in maximum diameter. It has Hounsfield units of approximately 5 precontrast and approximately 9 postcontrast. There is a 1.7 cm low density in the posterior left kidney toward the lower pole which has Hounsfield units of 12 precontrast and 14 postcontrast. There is a 0.7 cm low density area at the lower pole of the left kidney. It is not well visualized on the precontrast images. It has Hounsfield units of approximately 10 following intravenous contrast administration. It is most consistent with a cyst. No cortical masses are demonstrated. There are no radiodense renal calculi. There are vascular calcifications in the bilateral kidneys. There is no hydronephrosis. There is incomplete filling of the distal ureters bilaterally, but the caliber of the ureters appears normal. BLADDER: The urinary bladder is decompressed. A Mares catheter is noted in position. There is an equivocal 1 cm area of increased density in the posterior bladder to the right of midline, which has contrast pooling around this region following urinary contrast excretion (images 75/97, series 2 and 75/97, series 5). GASTROINTESTINAL TRACT: The stomach and loops of small bowel appear normal. The appendix appears normal. There is moderate stool within the large bowel. There is mild diverticulosis of the descending and sigmoid colon. ABDOMINAL WALL: The study redemonstrates a fat-containing umbilical hernia, which measures 3.5 cm external to the abdominal cavity. It is well-defined. LYMPH NODES: No pelvic or abdominal lymphadenopathy is demonstrated. VASCULAR: There are atheromatous calcifications of the aorta and its branches. No aneurysms are demonstrated. PELVIC VISCERA: The prostate gland is at the upper limits of normal in size. There is no free fluid in the pelvis. OSSEOUS STRUCTURES: There are multilevel spondylitic changes in the lumbar spine with vacuum discs seen at L2-L3 and L5-S1. There are no acute osseous findings. IMPRESSION: 1. There is an equivocal 1 cm area of increased density in the posterior bladder to the right of midline, which has contrast pooling around this region following urinary contrast excretion. It may be consistent with a filling defect, and this could be further evaluated with cystogram or direct visualization. 2. There is a well-defined low density area at the upper pole of the right kidney which measures 2.6 cm in diameter. Precontrast, it has Hounsfield units of 0, which increase to 10-15 following intravenous contrast. It is most consistent with a renal cyst. There is a 4 cm exophytic cyst at the lower pole of the right kidney which measures 4.7 cm in diameter. There are 1.7 cm and 0.7 cm cysts in the lower left kidney. No cortical masses are demonstrated. 3. The ureters are not distended. There is no hydronephrosis. There are no radiodense renal calculi. 4. The study redemonstrates the severe emphysematous changes in the lower zones of the lungs bilaterally. 5. There is diverticulosis without evidence of acute diverticulitis. 6. There is cholelithiasis without evidence of acute cholecystitis. DICTATED BY: Antony Wood MD SERVICE DATE: 07/25/18- EXAM TYPE: RAD - XRY-URETEROSCOPY OR EXAMINATION: Intraoperative fluoroscopy CLINICAL INFORMATION: Right ureteroscopy COMPARISON: CT abdomen pelvis 07/22/2018 TECHNIQUE: Intraoperative fluoroscopy was provided for use by Dr. Lai. A total of 17 images were saved to PACS. A radiologist was not present during imaging. TOTAL FLUOROSCOPIC TIME: 55 seconds FINDINGS\E\IMPRESSION: Intraoperative fluoroscopy provided for use by Dr. Lai. Please see operative note for detailed findings. DICTATED BY: Varun Cordova MD Disposition Summary Disposition Principal Diagnosis: 1. 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 Will need to follow up with cardiology for possible outpatient cardiac catheterization. Will need to follow up with pulmonology for emphysema. Further instructions per [facility]. Medications at Discharge Discharge Medications: Continue taking these medications: Atenolol (Atenolol) 25 MG TABLET 1 Tablet ORAL DAILY Comments: Last Taken:07/27/18 Time:944 Glipizide (Glipizide) 10 MG TABLET 1 Tablet ORAL TWICE DAILY Comments: NOT GIVEN IN HOSPITAL Metformin HCl (Metformin HCl ER) 500 MG TAB.ER.24H 2 Tablet ORAL Every Morning Qty = 90 Comments: NOT GIVEN IN HOSPITAL Lisinopril/Hydrochlorothiazide (Lisinopril-Hctz 20-12.5 MG Tab) (Unknown Strength) TABLET Unknown Dose ORAL DAILY Qty = 90 Comments: NOT GIVEN IN HOSPITAL Atorvastatin Calcium (Atorvastatin Calcium) (Unknown Strength) TABLET Unknown Dose ORAL As Directed Qty = 45 Comments: Last Taken:07/27/18 Time:944 Oxycodone HCl/Acetaminophen (Percocet 5-325 MG Tablet) 5 MG-325 MG TABLET 2 Tablet ORAL TWICE DAILY Comments: NOT GIVEN IN HOSPITAL Oxycodone HCl (Oxycontin) 40 MG TAB.ER.12H 1 Tablet ORAL TWICE DAILY Comments: Last Taken:07/27/18 Time:944 Ferrous Sulfate (Ferrous Sulfate) 325 MG (65 MG IRON) TABLET 1 Tablet ORAL TWICE DAILY Comments: NOT GIVEN IN HOSPITAL Start taking the following new medications: Budesonide/Formoterol Fumarate (Symbicort 80-4.5 Mcg Inhaler) 80 MCG-4.5 MCG/ ACTUATION HFA.AER.AD 2 Puff Inhale through mouth TWICE DAILY Qty = 3 No Refills Comments: Last Taken:07/28/18 Time:0945 Guaifenesin (Guaifenesin ER) 600 MG TAB.ER.12H 600 Milligram ORAL EVERY 12 HOURS as needed for COUGH SUPPRESSANT Qty = 30 No Refills Comments: Last Taken:07/28/18 Time:0945 Calcium Carbonate (Calcium Carbonate) 200 MG CALCIUM (500 MG) TAB.CHEW 500 Milligram ORAL DAILY Qty = 30 No Refills Comments: Last Taken:07/28/18 Time:0945 Bisacodyl (Bisacodyl) 5 MG TABLET.DR 5 Milligram ORAL DAILY as needed for CONSTIPATION Qty = 30 No Refills Comments: NOT GIVEN IN HOSPITAL Docusate Sodium (Docusate Sodium) 100 MG CAPSULE 100 Milligram ORAL DAILY as needed for CONSTIPATION Qty = 30 No Refills Comments: Last Taken:07/28/18 Time:0945 Polyethylene Glycol 3350 (Miralax) 17 GRAM/DOSE POWDER 17 Gram ORAL DAILY as needed for CONSTIPATION Qty = 30 No Refills Comments: Last Taken:07/28/18 Time:0945 Ondansetron (Ondansetron Odt) 4 MG TAB.RAPDIS 4 Milligram ORAL EVERY 6 HOURS NEEDED as needed for NAUSEA/VOMITING Qty = 10 No Refills Comments: Last Taken:07/28/18 Time:0838 Omeprazole (Omeprazole) 20 MG CAPSULE.DR 40 Milligram ORAL DAILY BEFORE BREAKFAST Qty = 30 No Refills Comments: Last Taken:07/28/18 Time:0532 Finasteride (Finasteride) 5 MG TABLET 5 Milligram ORAL DAILY Qty = 30 No Refills Comments: Last Taken:07/28/18 Time:0945 Ampicillin Sodium (Ampicillin Sodium) 1 GRAM VIAL 1 Gram IV Q6H Qty = 3 No Refills Comments: NOT GIVEN IN HOSPITAL Albuterol Sulfate (Proair Hfa) 90 MCG HFA.AER.AD 2 Puff Inhale through mouth EVERY 4-6 HOURS NEEDED as needed for EMPHYSEMA Qty = 1 No Refills Comments: Last Taken:07/27/18 Time:1230 Copies To: Rochelle Vivas APRN, MD Review Statement Documenting Attending: Vinny Vicente MD Other Findings: Agree with summary of care and plan of care as outlined. Will transfer to [facility] service and Dr. Lai is speaking with Urology service. Will be considered for robotic nephrectomy. Dr. Wilkes will be accepting Hospitalist .
[2018-07-28] MEDS ORDERED: GUAIFENESIN ER600 MG PO (15:40)
[2018-07-28] MEDS ORDERED: CALCIUM CARBON200 MG PO (15:40)
[2018-07-28] MEDS ORDERED: SYMBICORT 80-10.2 GM INH (15:40)
[2018-07-28] MEDS ORDERED: ONDANSETRON ODT4 M1 PO (15:40)
[2018-07-28] MEDS ORDERED: DOCUSATE SODIU100 M3 PO (15:40)
[2018-07-28] MEDS ORDERED: OMEPRAZOLE20 M2 PO (15:40)
[2018-07-28] MEDS ORDERED: FINASTERIDE5 M1 PO (15:40)
[2018-07-28] MEDS ORDERED: BISACODYL5 M1 PO (15:40)
[2018-07-28] MEDS ORDERED: MIRALAX119 GM PO (15:40)
[2018-07-28] MEDS ORDERED: AMPICILLIN SODIU1 G1 IV (15:40)
[2018-07-28] MEDS ORDERED: PROAIR HFA8.5 GM INH (15:41)
--- NOTE | 2018-07-28 15:45 | Patient Discharge Instructions ---
Discharge Instructions General Discharge Information You were seen/treated for: Gross hematuria (blood and clots in your urine) Anemia You had these procedures: Cystoscopy Blood transfusions Special Instructions: Follow up with your pcp Follow up with the urologist, radiology practitioner assistant and ladle repairman (referals have been provided) Further instructions per your medical team at [place] Acute Coronary Syndrome Inclusion Criteria At DC or during hospital stay patient has or had the following: ACS DIAGNOSIS No Discharge Core Measures Meds if any: Prescribed or Continued at Discharge Meds if any: NOT Prescribed or Continued at Discharge Congestive Heart Failure Inclusion Criteria At DC or during hospital stay patient has or had the following: CHF DIAGNOSIS No Discharge Core Measures Meds if any: Prescribed or Continued at Discharge Meds if any: NOT Prescribed or Continued at Discharge Cerebrovascular accident Inclusion Criteria At DC or during hospital stay patient has or had the following: CVA/TIA Diagnosis No Discharge Core Measures Meds if any: Prescribed or Continued at Discharge Meds if any: NOT Prescribed or Continued at Discharge Venous thromboembolism Inclusion Criteria VTE Diagnosis No VTE Type NONE VTE Confirmed by (Test) NONE Discharge Core Measures - Per Current guidelines, there needs to be overlap - treatment for the first 5 days of Warfarin therapy. - If discharged on Warfarin prior to 5 days of - overlap therapy, the patient will need to be - assessed for post discharge needs including - *Post discharge parental anticoagulation - *Warfarin and/or parental anticoagulation education - *Follow up date to check INR post discharge At least 5 days overlap therapy as Inpatient No Meds if any: Prescribed or Continued at Discharge Note: Overlap Therapy is Warfarin and Anticoagulant Meds if any: NOT Prescribed or Continued at Discharge
== END 2018-07-28 17:25 | disposition short-term general hospital (02) | DRG 654 ==
LOC: ERH 15:04 → ERHI 20:52 → CRI 20:52 → 2NB 20:52 → ENRESERV 22:18 → ENTRNSPT 22:38 → CRI 23:17 → CMPTRNSPT 07-16 07:01 → CRI 07-18 07:54 → ENTRNSPT 07-19 15:27 → EDTRNSPT 07-19 15:59 → EDTRNSPTSTS 07-19 15:59 → 1NO 07-19 16:02 → CMPTRNSPT 07-19 16:04 → 1NO 07-20 07:54 → ENTRNSPT 07-22 13:34 → EDTRNSPT 07-22 13:48 → EDTRNSPTSTS 07-22 13:48 → 2NB 07-22 13:49 → CMPTRNSPT 07-22 14:02 → 2NB 07-25 11:54 → ENTRNSPT 07-25 17:46 → EDTRNSPT 07-25 18:01 → EDTRNSPTSTS 07-25 18:01 → CMPTRNSPT 07-25 18:19 → 2NB 07-28 17:25
PROVIDERS: General Practice; Hospitalist; Internal Medicine; Physical Medicine & Rehabilitation Pain Medicine; Physician Assistant; Student in an Organized Health Care Education/Training Program
PROC: 30233N1 Transfusion of Nonautologous Red Blood Cells into Peripheral Vein, Percutaneous Approach (ICD-10-PCS; principal; 2018-07-16)
PROC: 0T7B8DZ Dilation of Bladder with Intraluminal Device, Via Natural or Artificial Opening Endoscopic (ICD-10-PCS; 2018-07-22)
PROC: 0V508ZZ Destruction of Prostate, Via Natural or Artificial Opening Endoscopic (ICD-10-PCS; 2018-07-22)
PROC: 0VB08ZZ Excision of Prostate, Via Natural or Artificial Opening Endoscopic (ICD-10-PCS; 2018-07-22)
PROC: 0TCB8ZZ Extirpation of Matter from Bladder, Via Natural or Artificial Opening Endoscopic (ICD-10-PCS; 2018-07-22)
PROC: 0V508ZZ Destruction of Prostate, Via Natural or Artificial Opening Endoscopic (ICD-10-PCS; 2018-07-25)
PROC: 0TCB8ZZ Extirpation of Matter from Bladder, Via Natural or Artificial Opening Endoscopic (ICD-10-PCS; 2018-07-25)
DX: C65.1 Malignant neoplasm of right renal pelvis (principal); D62 Acute posthemorrhagic anemia; E87.1 Hypo-osmolality and hyponatremia; Z68.41 Body mass index [BMI] 40.0-44.9, adult; N17.9 Acute kidney failure, unspecified; N39.0 Urinary tract infection, site not specified; R31.0 Gross hematuria; J44.9 Chronic obstructive pulmonary disease, unspecified; I12.9 Hypertensive chronic kidney disease with stage 1 through stage 4 chronic kidney disease, or unspecified chronic kidney disease; E11.22 Type 2 diabetes mellitus with diabetic chronic kidney disease; N18.3 Chronic kidney disease, stage 3 (moderate); Z79.84 Long term (current) use of oral hypoglycemic drugs; E66.01 Morbid (severe) obesity due to excess calories; R94.31 Abnormal electrocardiogram [ECG] [EKG]; E78.5 Hyperlipidemia, unspecified; Z87.891 Personal history of nicotine dependence; B95.2 Enterococcus as the cause of diseases classified elsewhere
CPT/HCPCS: 1NP; 2NBSP; CCU; 36415; 36592; 71045; 71046; 74176; 74178; 76000; 81001; 82355; 82436; 86920; 87070; 87086; 87147; 88305; 93005; 93010; 93306; 96374; 99291; J0290; J0690; J0696; J0744; J1815; J1940; J2405; J3101; J3490; J7042; P9016